=== PATIENT | female | born 1980 | race Caucasian/White ===

== ENCOUNTER 2016-08-06 10:58 | Outpatient (CLI) | payer BC, MEDICAID ==
[2016-08-06 11:35] LABS: AMORPHOUS SEDIMENT,URINE TRACE /HPF; APPEARANCE,URINE CLOUDY; BILIRUBIN,URINE NEGATIVE (NEGATIVE); GLUCOSE, URINE NEGATIVE (NEGATIVE); KETONES,URINE TRACE mg/dL (NEGATIVE); LEUKOCYTE ESTERASE,URINE NEGATIVE (NEGATIVE); NITRITE,URINE NEGATIVE (NEGATIVE); PROTEIN,URINE NEGATIVE (NEGATIVE); URINE SPECIFIC GRAVITY 1.011
[2016-08-06 11:45] LABS: URINE BARBITURATES SCREEN NEGATIVE; URINE METHADONE SCREEN NEGATIVE; URINE OPIATES LOW NEGATIVE; URINE PHENCYCLIDINE SCREEN NEGATIVE
[2016-08-06] MEDS ORDERED: ONDANSETRON 4 MG TAB.RAPDIS ONE (11:50)
[2016-08-06] MEDS ORDERED: ONDANSETRON ODT 4 MG TAB (6 TAB/DSPK) PO PRN (11:51)
--- NOTE | 2016-08-06 12:01 | L&D Flow Sheet ---
LD Flowsheet Datetime Report Generated by CPN: 08/06/2016 12:00 Datetime: 08/06/2016 11:50 Vital Signs NBP Sys/Adwoa/Mean (mmHg): 125 (QS system process) : 80 (QS system process) : 98 (QS system process) Pulse: 88 (QS system process) Datetime: 08/06/2016 11:49 Communication Communication: Provider Orders Received (Esther Navneet, RN) Communication Comments: orders received for zofran 8mg ODT now (Esther Navneet, RN) Datetime: 08/06/2016 11:35 Vital Signs NBP Sys/Adwoa/Mean (mmHg): 116 (QS system process) : 61 (QS system process) : 83 (QS system process) Pulse: 91 (QS system process) Datetime: 08/06/2016 11:33 Pain Pain Scale: 0 (Esther Navneet, RN) Pain Presence: None/Denies (Esther Navneet, RN) Pain Type: N/A (Esther Navneet, RN) Vaginal Exam Vaginal Bleeding: None (Esther Toth, RN) Maternal Assessment Level of Consciousness: Fully Conscious (Esther Toth RN) DTR's/Clonus: DTRs 2+; No Clonus (Esther Toth RN) Headache: Denies (Esther Toth RN)
[2016-08-06] MEDS ORDERED: RINGERS SOLUTION,LACTATED 1,000 ML IV ONE (12:24)
[2016-08-06] MEDS ORDERED: PANTOPRAZOLE SODIUM 40 MG VIAL IV ONE (12:25)
[2016-08-06] MEDS ORDERED: PROMETHAZINE HCL INJ 25 MG/1 ML VIAL IV ONE (12:25)
[2016-08-06] MEDS ORDERED: LANSOPRAZOLE 30 MG TAB.RAP.DR ONE (12:31)
[2016-08-06] MEDS ORDERED: PROMETHAZINE HCL INJ 25 MG/1 ML VIAL ONE (12:31)
--- NOTE | 2016-08-06 13:11 | Non Stress Test Report ---
Non Stress Test Datetime Report Generated by CPN: 08/06/2016 13:11 INDICATION Indication for Study: Other Indication for Study (NST) Other: Labor check MONITORING Monitor Explained: Monitor Explained; Test Explained; Patient Verbalized Understanding Time on Monitor: 08/06/2016 11:21 Time off Monitor: 08/06/2016 12:32 NST Duration: 71 NST INTERVENTIONS NST Interventions: PO Hydration; Reposition Patient Physician Notified NST: Dr. Neilsen BABY A: [id number] BABY A Movement : Present Contraction Frequency : irregular FHR Baseline : 145 Accelerations : 15X15 Decelerations : None Variability : Moderate 6-25bpm NST Review: Meets Criteria for Reactive NST NST Review and Verified By : RACHEAL DominiqueT Results: Reactive NST REPORT Report Trigger: Send Report
== END 2016-08-06 14:53 | disposition home or self-care (01) ==
LOC: LC 10:58
PROVIDERS: ATTEND Specialist
PROC: 4A1HXCZ Monitoring of Products of Conception, Cardiac Rate, External Approach (ICD-10-PCS; principal; 2016-08-06)
DX: O26.893 Other specified pregnancy related conditions, third trimester (principal); R11.2 Nausea with vomiting, unspecified; Z3A.36 36 weeks gestation of pregnancy
CPT/HCPCS: 59025; 81001; 80307; S0119; S0164; J2550

== ENCOUNTER 2016-08-08 19:05 | Inpatient (IN) | payer BC, MEDICAID ==
[2016-08-08 19:45] LABS: APPEARANCE,URINE CLEAR; BILIRUBIN,URINE NEGATIVE (NEGATIVE); GLUCOSE, URINE NEGATIVE (NEGATIVE); KETONES,URINE NEGATIVE (NEGATIVE); LEUKOCYTE ESTERASE,URINE NEGATIVE (NEGATIVE); NITRITE,URINE NEGATIVE (NEGATIVE); PROTEIN,URINE NEGATIVE (NEGATIVE); URINE SPECIFIC GRAVITY 1.012
[2016-08-08] MEDS ORDERED: ACETAMINOPHEN 325 MG TABLET ONE (19:45)
[2016-08-08 19:59] LABS: URINE BARBITURATES SCREEN NEGATIVE; URINE METHADONE SCREEN NEGATIVE; URINE OPIATES LOW NEGATIVE; URINE PHENCYCLIDINE SCREEN NEGATIVE
--- NOTE | 2016-08-08 20:00 | L&D Flow Sheet ---
LD Flowsheet Datetime Report Generated by CPN: 08/08/2016 20:00 Datetime: 08/08/2016 19:54 IV/Blood Work: Labs Drawn (Earlene Hankins, RN) Datetime: 08/08/2016 19:47 NBP Sys/Adwoa/Mean (mmHg): 131 (QS system process) : 72 (QS system process) : 93 (QS system process) Pulse: 93 (QS system process) Medication Comments: tylenol 650 mg PO (Earlene Hankins RN) LaborFlag: Antepartum (QS system process) Datetime: 08/08/2016 19:42 Communication: Provider Orders Received; Report Given to @ Dr Gomes (Earlene Hankins RN) Communication Comments: Report to Dr Gomes, on unit. Orders received for tylenol 650 mg PO, PI labs. No further orders at this time (Earlene Hankins RN) Datetime: 08/08/2016 19:32 NBP Sys/Adwoa/Mean (mmHg): 146 (QS system process) : 84 (QS system process) : 104 (QS system process) Pulse: 96 (QS system process) Respirations: 17 (Earlene Hankins RN) Temperature (F): 97.9 (Earlene Hankins RN) Temperature (C): 36.6 (QS system process) Temperature Route: Oral (Earlene Hankins RN) LaborFlag: Antepartum (QS system process)
[2016-08-08 20:33] LABS: ABSOLUTE EOSINOPHILS # (AUTO) 0.1 10^3/uL (0.0-0.6); ABSOLUTE LYMPHOCYTES (AUTO) 2.1 10^3/uL (0.5-4.7); ABSOLUTE MONOCYTES (AUTO) 0.5 10^3/uL (0.1-1.4); ABSOLUTE NEUT (AUTO) 6.1 10^3/uL (1.7-8.2); BASOPHILS % (AUTO) 0.3 % (0-2); EOSINOPHILS % (AUTO) 0.9 % (0-6); HEMATOCRIT 30.3 % (36.0-47.0); HEMOGLOBIN 10.1 g/dL (12.0-15.5); LYMPHOCYTES % (AUTO) 23.5 % (13-45); MEAN CORPUSCULAR HEMOGLOBIN 26.2 pg (27.0-33.4); MEAN CORPUSCULAR HGB CONC 33.4 g/dL (32.0-36.0); MEAN CORPUSCULAR VOLUME 78 fl (80-97); MONOCYTES % (AUTO) 5.9 % (3-13); RED BLOOD COUNT 3.87 10^6/uL (3.72-5.28); RED CELL DISTRIBUTION WIDTH 15.2 % (11.5-14.0); SEGMENTED NEUTROPHILS % (AUTO) 69.4 % (42-78); WHITE BLOOD COUNT 8.8 10^3/uL (4.0-10.5)
[2016-08-08 20:54] LABS: ALANINE AMINOTRANSFERASE 36 U/L (9-52); ALBUMIN 2.9 g/dL (3.5-5.0); ALKALINE PHOSPHATASE 187 U/L (38-126); ANION GAP 9 (5-19); ASPARTATE AMINO TRANSFERASE 36 U/L (14-36); BILIRUBIN,TOTAL 0.7 mg/dL (0.2-1.3); BLOOD UREA NITROGEN 7 mg/dL (7-20); CALCIUM 9.2 mg/dL (8.4-10.2); CARBON DIOXIDE 25 mmol/L (22-30); CHLORIDE 104 mmol/L (98-107); CREATININE RESULT 0.66 mg/dL (0.52-1.25); GLUCOSE 93 mg/dL (75-110); LDH 551 U/L (313-618); POTASSIUM 3.6 mmol/L (3.6-5.0); SODIUM 137.7 mmol/L (137-145); TOTAL PROTEIN 6.1 g/dL (6.3-8.2); URIC ACID 4.4 mg/dL (2.5-7.0)
[2016-08-08] MEDS ORDERED: RINGERS SOLUTION,LACTATED 300 ML IV ONE (21:53)
[2016-08-08] MEDS ORDERED: OXYTOCIN/NORMAL SALINE 1,000 ML IV PRN (21:53)
[2016-08-08] MEDS ORDERED: RINGERS SOLUTION,LACTATED 1,000 ML IV PRN (21:53)
[2016-08-08] MEDS ORDERED: PENICILLIN G POTASSIUM 5,000,000 UNIT in DEXTROSE 5%-WATER 100 ML IV ONE (21:56)
[2016-08-08] MEDS ORDERED: ACETAMINOPHEN 325 MG TABLET PO PRN (21:57)
[2016-08-08] MEDS ORDERED: MAG HYDROX/AL HYDROX/SIMETH SUSP 30 ML UDCUP PO PRN (21:57)
[2016-08-08] MEDS ORDERED: ZOLPIDEM TARTRATE 5 MG TABLET PO SCH (22:00)
--- NOTE | 2016-08-08 22:01 | L&D Flow Sheet ---
LD Flowsheet Datetime Report Generated by CPN: 08/08/2016 22:00 Datetime: 08/08/2016 21:57 NBP Sys/Adwoa/Mean (mmHg): 132 (QS system process) : 89 (QS system process) : 105 (QS system process) Pulse: 83 (QS system process) LaborFlag: Antepartum (QS system process) Datetime: 08/08/2016 21:52 Patient Care Comments: IV started; 18 G R forearm site WNL; LR infusing per order (Carli Vitrano, RN) Datetime: 08/08/2016 21:21 Additional Nursing Comments: Pt transfered from PACU room K to room 4 (Earlene Marroquinsel, RN) Datetime: 08/08/2016 21:15 Communication Comments: Admission orders from Dr Gomes (Earlene Cr, RN) Datetime: 08/08/2016 20:37 NBP Sys/Adwoa/Mean (mmHg): 133 (QS system process) : 62 (QS system process) : 89 (QS system process) Pulse: 94 (QS system process) LaborFlag: Antepartum (QS system process) Datetime: 08/08/2016 20:27 NBP Sys/Adwoa/Mean (mmHg): 110 (QS system process) : 59 (QS system process) : 78 (QS system process) Pulse: 93 (QS system process) LaborFlag: Antepartum (QS system process) Datetime: 08/08/2016 20:20 NBP Sys/Adwoa/Mean (mmHg): 122 (QS system process) : 59 (QS system process) : 81 (QS system process) Pulse: 87 (QS system process) Monitor Interventions for FHR: Ultrasound Adjusted (Earlene Hankins RN) Patient Care Comments: BP retaken (Earlene Hankins RN) Communication: RN at Bedside (Earlene Hankins RN) LaborFlag: Antepartum (QS system process) Datetime: 08/08/2016 20:18 Patient Position/Activity: Right Lateral (Earlene Hankins RN) Datetime: 08/08/2016 20:17 NBP Sys/Adwoa/Mean (mmHg): 159 (QS system process) : 68 (QS system process) : 97 (QS system process) Pulse: 87 (QS system process) LaborFlag: Antepartum (QS system process) Datetime: 08/08/2016 20:12 Monitor Interventions for FHR: Ultrasound Adjusted (Earlene Hankins RN) Pain Scale: 4 (Earlene Hankins RN) Pain Assessment Comments: Pt reports improvement of pain. Pt resting comfortably, looking at phone (Earlene Hankins RN) Communication: RN at Bedside (Earlene Hankins RN) LaborFlag: Antepartum (QS system process) Datetime: 08/08/2016 20:07 NBP Sys/Adwoa/Mean (mmHg): 145 (QS system process) : 65 (QS system process) : 93 (QS system process) Pulse: 96 (QS system process) LaborFlag: Antepartum (QS system process)
[2016-08-08] MEDS ORDERED: PENICILLIN G-K 5 MILLION UNIT VIAL IV PRN ×2 (22:10→22:12)
[2016-08-08] MEDS ORDERED: DINOPROSTONE 10 MG VAGINAL INSERT.SR ONE (22:26)
[2016-08-08] MEDS: DINOPROSTONE 10 MG VAGINAL INSERT.SR PV PRN ×2 (22:56→23:37)
[2016-08-08] MEDS ORDERED: MAG HYDROX/AL HYDROX/SIMETH SUSP 30 ML UDCUP ONE (23:09)
[2016-08-09] MEDS ORDERED: ZOLPIDEM TARTRATE 5 MG TABLET ONE (01:28)
[2016-08-09] MEDS ORDERED: PENICILLIN G POTASSIUM 2,500,000 UNIT in DEXTROSE 5%-WATER 50 ML IV SCH (01:56)
[2016-08-09] MEDS ORDERED: MAG HYDROX/AL HYDROX/SIMETH SUSP 30 ML UDCUP ONE ×4 (06:41→21:18)
[2016-08-09] MEDS ORDERED: OXYTOCIN/NORMAL SALINE 20 UNIT/1,000 ML RTUINJ ONE (06:56)
[2016-08-09] MEDS ORDERED: PENICILLIN G-K 5 MILLION UNIT VIAL ONE ×3 (07:39→15:32)
[2016-08-09] MEDS: PENICILLIN G-K 5 MILLION UNIT VIAL IV SCH ×3 (07:48→15:40)
--- NOTE | 2016-08-09 08:01 | L&D Flow Sheet ---
LD Flowsheet Datetime Report Generated by CPN: 08/09/2016 08:00 Datetime: 08/09/2016 07:34 Temperature (F): 97.6 (Lenin Liu RN) Temperature (C): 36.4 (QS system process) Bedside Blood Glucose: 88 (QS system process) LaborFlag: Antepartum (QS system process) Datetime: 08/09/2016 07:27 Patient Care Comments: Cooks Catheter placed by Dr Gomes (Lenin Noe, RN) Datetime: 08/09/2016 07:20 Communication: Provider at Bedside (Earlene Hankins RN) Communication Comments: Dr Gomes at bedside (Earlene Hankins, RN) Communication Comments: Report to S Noe RN, care relinquished (Earlene Cr, RN) Datetime: 08/09/2016 07:12 NBP Sys/Adwoa/Mean (mmHg): 139 (QS system process) : 91 (QS system process) : 109 (QS system process) Pulse: 107 (QS system process) LaborFlag: Antepartum (QS system process) Datetime: 08/09/2016 07:11 NBP Sys/Adwoa/Mean (mmHg): 137 (QS system process) : 100 (QS system process) : 115 (QS system process) Pulse: 98 (QS system process) LaborFlag: Antepartum (QS system process) Datetime: 08/09/2016 07:09 Patient Care Comments: maternal HR auscultated (Keya Campostibnguyen RN) Communication: RN at Bedside (Keya Andrestibnguyen, RN) Datetime: 08/09/2016 07:00 Monitor Mode: External (Earlene Hankins RN) Frequency (min): 2-3 (Earlene Hankins RN) Quality: Mild (Earlene Cr, RN) Duration (sec): 60-120 (Earlene Hankins RN) Resting Tone (Palpate): Relaxed (Earlene Hankins RN) Monitor Mode: External US (Earlene Cr, RN) FHR Baseline Rate : 140 (Earlene Cr, RN) Variability: Marked >25 bpm (Earlene Cr, RN) Accelerations: None (Earlene Cr, RN) Decelerations: None (Earlene Cr, RN) Datetime: 08/09/2016 06:48 NBP Sys/Adwoa/Mean (mmHg): 137 (QS system process) : 87 (QS system process) : 104 (QS system process) Pulse: 90 (QS system process) LaborFlag: Antepartum (QS system process) Datetime: 08/09/2016 06:47 Pain Scale: "slight" (Earlene Hankins RN) Pain Presence: Constant (Earlene Hankins RN) Pain Type: Ache (Earlene Hankins RN) Pain Location: Head (Earlene Hankins RN) Pain Assessment Comments: Pt states headache is slight, "nothing like before" (Earlene Hankins RN) Dilatation (cm): 0.5 (Earlene Hankins RN) Effacement (%): 0 (Earlene Hankins RN) Station: -2 (Earlene Hankins RN) Exam by: Dwaine Hankins RN (Earlene Hankins RN) Vaginal Bleeding: None (Earlene Hankins RN) Cervix, Consistency: Moderate (Earlene Hankins RN) Cervix, Position: Anterior (Earlene Hankins RN) Dilatation (cm): Closed (Earlene Hankins RN) Effacement: 0-30_ effaced (Earlene Hankins RN) Station: minus 2 (Earlene Hankins RN) Consistency: Medium (Earlene Hankins RN) Position: Anterior (Earlene Hankins RN) Total Lugo's Score: 4 (QS system process) : 0-4 = Unfavorable cervix (QS system process) LaborFlag: Antepartum (QS system process) Datetime: 08/09/2016 06:40 Monitor Interventions for FHR: Ultrasound Adjusted (Earlene Hankins RN) Communication: RN at Bedside (Earlene Hankins RN) Datetime: 08/09/2016 06:33 I/O Interventions: Up to BR (Earlene Cr, RN) Datetime: 08/09/2016 06:30 Monitor Mode: External; Palpation (Ealrene Cr, RN) Frequency (min): Occasional (Earlene Cr, RN) Quality: Mild (Earlene Cr, RN) Duration (sec): 70-80 (Earlene Cr, RN) Resting Tone (Palpate): Relaxed (Earlene Cr, RN) Monitor Mode: External US (Earlene Cr, RN) Comments: Unable to assess FHR d/t broken strip (Earlene Cr, RN) Datetime: 08/09/2016 06:26 Monitor Interventions for FHR: Ultrasound Adjusted (Earlene Cr, RN) Communication: RN at Bedside (Earlene Cr, RN) Datetime: 08/09/2016 06:12 Monitor Interventions for FHR: Ultrasound Adjusted (Earlene Cr, RN) Communication: RN at Bedside (Earlene Cr, RN) Datetime: 08/09/2016 06:10 Patient Care Comments: Pt called RN to bedside d/t cervidil coming out in toilet. (Earlene Cr, RN) Communication: RN at Bedside (Earlene Cr, RN) Datetime: 08/09/2016 06:06 I/O Interventions: Up to BR (Earlene Cr, RN) Datetime: 08/09/2016 06:00 Monitor Mode: External (Earlene Cr, RN) Frequency (min): None (Earleen Cr, RN) Resting Tone (Palpate): Relaxed (Earlene Cr, RN) Monitor Mode: External US (Earlene Cr, RN) Comments: Unable to assess FHR, RN at bedside adjusting EFMs (Earlene Cr, RN) Datetime: 08/09/2016 05:56 Monitor Interventions for FHR: Ultrasound Adjusted (Earlene Cr, RN) Communication: RN at Bedside (Earlene Cr, RN) Datetime: 08/09/2016 05:45 I/O Interventions: Up to BR (Earlene Cr, RN) Datetime: 08/09/2016 05:43 NBP Sys/Adwoa/Mean (mmHg): 146 (QS system process) : 73 (QS system process) : 103 (QS system process) Pulse: 87 (QS system process) LaborFlag: Antepartum (QS system process) Datetime: 08/09/2016 05:41 Monitor Interventions for FHR: Ultrasound Adjusted (Earlene Cr, RN) Communication: RN at Bedside (Earlene Cr, RN) Datetime: 08/09/2016 05:37 Patient Position/Activity: Left Tilt (Earlene Cr, RN) Datetime: 08/09/2016 05:30 Monitor Mode: External (Earlene Cr, RN) Frequency (min): none (Earlene Cr, RN) Resting Tone (Palpate): Relaxed (Earlene Cr, RN) Monitor Mode: External US (Earlene Cr, RN) FHR Baseline Rate : 135 (Earlene Cr, RN) Variability: Moderate 6-25 bpm (Earlene Cr, RN) Accelerations: 10X10 (Earlene Cr, RN) Decelerations: None (Earlene Cr, RN) Datetime: 08/09/2016 05:00 Monitor Mode: External (Earlene Cr, RN) Frequency (min): None (Earlene Cr, RN) Resting Tone (Palpate): Relaxed (Earlene Cr, RN) Monitor Mode: External US (Earlene Cr, RN) FHR Baseline Rate : 125 (Earlene Cr, RN) Variability: Moderate 6-25 bpm (Earlene Cr, RN) Accelerations: None (Earlene Cr, RN) Decelerations: None (Earlene Cr, RN) Datetime: 08/09/2016 04:31 Monitor Interventions for FHR: Ultrasound Adjusted (Earlene Cr, RN) Communication: RN at Bedside (Earlene Cr, RN) Datetime: 08/09/2016 04:30 Monitor Mode: External (Earlene Cr, RN) Frequency (min): Irritability (Earlene Cr, RN) Quality: Mild (Earlene Cr, RN) Resting Tone (Palpate): Relaxed (Earlene Cr, RN) Monitor Mode: External US (Earlene Cr, RN) FHR Baseline Rate : 135 (Earlene Cr, RN) Variability: Moderate 6-25 bpm (Earlene Hankins, RN) Accelerations: None (Earlene Redmondl, RN) Decelerations: None (Earlene Cr, RN) Datetime: 08/09/2016 04:06 I/O Interventions: Up to BR (Earlene Redmondl, RN) Datetime: 08/09/2016 03:31 Antibiotics: Start Antibiotics; Penicillin IV (Units) @ 5 million units (Earlene Hankins RN) Medication Comments: Per orders from Dr Gomes (Earlene Hankins RN) IV/Blood Work: New IV Bag Hung; IV Bag Number @ 2 (Earlene Hankins RN) Datetime: 08/09/2016 03:30 Monitor Mode: External (Earlene Cr, RN) Frequency (min): 4-6 (Earlene Cr, RN) Quality: Mild (Earlene Cr, RN) Duration (sec): 60-90 (Earlene Cr, RN) Resting Tone (Palpate): Relaxed (Earlene Cr, RN) Monitor Mode: External US (Earlnee Cr, RN) FHR Baseline Rate : 130 (Earlene Cr, RN) Variability: Moderate 6-25 bpm (Earlene Cr, RN) Accelerations: 10X10 (Earlene Cr, RN) Decelerations: None (Earlene Cr, RN) Datetime: 08/09/2016 03:21 Monitor Interventions for FHR: Ultrasound Adjusted (Earlene Cr, RN) Communication: RN at Bedside (Earlene Cr, RN) Datetime: 08/09/2016 03:00 Monitor Mode: External (Earlene Cr, RN) Frequency (min): 4-7 (Earlene Cr, RN) Quality: Mild (Earlene Cr, RN) Duration (sec): 50-70 (Earlene Cr, RN) Resting Tone (Palpate): Relaxed (Earlene Cr, RN) Monitor Mode: External US (Earlene Cr, RN) FHR Baseline Rate : 130 (Earlene Cr, RN) Variability: Moderate 6-25 bpm (Earlene Cr, RN) Accelerations: 15X15 (Earlene Cr, RN) Decelerations: None (Earlene Cr, RN) Datetime: 08/09/2016 02:30 Monitor Mode: External (Earlene Cr, RN) Frequency (min): irritability (Earlene Cr, RN) Quality: Mild (Earlene Cr, RN) Resting Tone (Palpate): Relaxed (Earlene Cr, RN) Monitor Mode: External US (Earlene Cr, RN) FHR Baseline Rate : 130 (Earlene Cr, RN) Variability: Moderate 6-25 bpm (Earlene Cr, RN) Accelerations: 15X15 (Earlene Cr, RN) Decelerations: None (Earlene Cr, RN) Datetime: 08/09/2016 02:13 Monitor Interventions for FHR: Ultrasound Adjusted (Keya Lattibeaudeir, RN) Comments: almost constant maternal movement noted (Keya Lattibeaudeir, RN) Datetime: 08/09/2016 02:10 Monitor Interventions for FHR: Ultrasound Adjusted (Keya Lattibeaudeir, RN) Datetime: 08/09/2016 02:00 Monitor Mode: External (Earlene Cr, RN) Frequency (min): Irritability (Earlene Cr, RN) Quality: Mild (Earlene Cr, RN) Resting Tone (Palpate): Relaxed (Earlene Cr, RN) Monitor Mode: External US (Earlene Cr, RN) Monitor Interventions for FHR: Ultrasound Adjusted (Earlene Cr, RN) FHR Baseline Rate : 125 (Earlene Cr, RN) Variability: Moderate 6-25 bpm (Earlene Cr, RN) Accelerations: 15X15 (Earlene Cr, RN) Decelerations: None (Earlene Cr, RN) Communication: RN at Bedside (Earlene Marroquinsel, RN) Datetime: 08/09/2016 01:31 Medication Comments: ambien 10 mg PO per [facility] standing orders (Earlene Marroquinsel, RN) Datetime: 08/09/2016 01:30 Monitor Mode: External (Earlene Cr, RN) Frequency (min): Irritability (Earlene Cr, RN) Quality: Mild (Earlene Cr, RN) Resting Tone (Palpate): Relaxed (Earlene Cr, RN) Monitor Mode: External US (Earlene Cr, RN) FHR Baseline Rate : 125 (Earlene Cr, RN) Variability: Moderate 6-25 bpm (Earlene Cr, RN) Accelerations: 15X15 (Earlene Cr, RN) Decelerations: None (Earlene Cr, RN) Datetime: 08/09/2016 01:10 I/O Interventions: Up to BR (Earlene Cr, RN) Datetime: 08/09/2016 01:00 Monitor Mode: External; Palpation (Earlene Cr, RN) Resting Tone (Palpate): Relaxed (Earlene Cr, RN) Contraction Comments: Irritability (Earlene Cr, RN) Monitor Mode: External US (Earlene Cr, RN) Comments: Unable to assess, broken strip (Earlene Cr, RN) Datetime: 08/09/2016 00:45 Monitor Interventions for FHR: Ultrasound Adjusted (Earlene Cr, RN) Comments: maternal HR auscultated (Earlene Cr, RN) Communication: RN at Bedside (Earlene Cr, RN) Datetime: 08/09/2016 00:40 NBP Sys/Adwoa/Mean (mmHg): 106 (QS system process) : 55 (QS system process) : 75 (QS system process) Pulse: 89 (QS system process) LaborFlag: Antepartum (QS system process) Datetime: 08/09/2016 00:30 Monitor Mode: External (Earlene Cr, RN) Frequency (min): Irritability (Earlene Cr, RN) Quality: Mild (Earlene Cr, RN) Resting Tone (Palpate): Relaxed (Earlene Cr, RN) Monitor Mode: External US (Earlene Cr, RN) FHR Baseline Rate : 135 (Earlene Cr, RN) Variability: Moderate 6-25 bpm (Earlene Cr, RN) Accelerations: 15X15 (Earlene Cr, RN) Decelerations: None (Earlene Cr, RN) Datetime: 08/09/2016 00:06 I/O Interventions: Up to BR (Earlene Cr, RN) Datetime: 08/09/2016 00:00 Monitor Mode: External (Earlene Cr, RN) Frequency (min): Irritability (Earlene Cr, RN) Quality: Mild (Earlene Cr, RN) Resting Tone (Palpate): Relaxed (Earlene Cr, RN) Monitor Mode: External US (Earlene Cr, RN) FHR Baseline Rate : 125 (Earlene Cr, RN) Variability: Moderate 6-25 bpm (Earlene Cr, RN) Accelerations: None (Earlene Cr, RN) Decelerations: None (Earlene Cr, RN) Datetime: 08/08/2016 23:54 Monitor Interventions for FHR: Ultrasound Adjusted (Keya Lattibeaudeir, RN) Comments: Vigorous and maternal movement noted (Keya Lattibeaudeir, RN) Datetime: 08/08/2016 23:39 NBP Sys/Adwoa/Mean (mmHg): 120 (QS system process) : 84 (QS system process) : 99 (QS system process) Pulse: 91 (QS system process) LaborFlag: Antepartum (QS system process) Datetime: 08/08/2016 23:30 Monitor Mode: External (Earlene Cr, RN) Frequency (min): Occasional (Earlene Cr, RN) Quality: Mild (Earlene Cr, RN) Duration (sec): 60-120 (Earlene Cr, RN) Resting Tone (Palpate): Relaxed (Earlene Cr, RN) Monitor Mode: External US (Earlene Cr, RN) FHR Baseline Rate : 135 (Earlene Cr, RN) Comments: Unable to completely assess FHR, broken strip (Earlene Cr, RN) Datetime: 08/08/2016 23:24 Monitor Interventions for FHR: Ultrasound Adjusted (Earlene Cr, RN) Communication: RN at Bedside (Earlene Cr, RN) Datetime: 08/08/2016 23:18 Monitor Interventions for FHR: Ultrasound Adjusted (Earlene Cr, RN) Communication: RN at Bedside (Earlene Rc, RN) Datetime: 08/08/2016 23:17 Medication Comments: maalox 30 mg PO for heartburn (Earlene Cr, RN) Patient Care Comments: pt vomiting, reportedly d/t heartburn (Earlene Cr, RN) Datetime: 08/08/2016 23:00 Monitor Mode: External (Earlene Cr, RN) Frequency (min): Irritability (Earlene Cr, RN) Quality: Mild (Earlene Cr, RN) Resting Tone (Palpate): Relaxed (Earlene Cr, RN) Comments: Unable to accurately assess FHR, broken strip (Earlene Cr, RN) Datetime: 08/08/2016 22:56 Dilatation (cm): 0.5 (Earlene Hankins RN) Effacement (%): 0 (Earlene Hankins, RN) Station: -1 (Earlene Hankins RN) Exam by: Dwaine Hankins RN (Earlene Hankins RN) Vaginal Bleeding: None (Earlene Hankins RN) Cervix, Consistency: Moderate (Earlene Hankins RN) Cervix, Position: Anterior (Earlene Hankins RN) Cervical Ripening Agents: Cervidil (Earlene Hankins RN) Datetime: 08/08/2016 22:51 Monitor Interventions for FHR: Ultrasound Adjusted (Earlene Hankins, RN) Comments: RN continuously holding u/s, attempting to locate FHR (Earlene Hankins RN) Communication: RN at Bedside (Earlene Hankins RN) Datetime: 08/08/2016 22:47 Monitor Interventions for FHR: Ultrasound Adjusted (Earlene Marroquinsel, RN) IV/Blood Work: Labs Drawn (Earlene Hankins, RN) Patient Care Comments: second laborer cook house at bedside for lab draw (Earlene Marroquinsel, RN) Communication: RN at Bedside (Earlene Cr, RN) Datetime: 08/08/2016 22:39 Monitor Interventions for FHR: Ultrasound Adjusted (Earlene Cr, RN) Communication: RN at Bedside (Earlene Cr, RN) Datetime: 08/08/2016 22:37 Comments: maternal HR auscultated (Earlene Marroquinsel, RN) Communication: RN at Bedside (Earlene Cr, RN) Datetime: 08/08/2016 22:35 IV/Blood Work: Labs Drawn (Earlene Cr, RN) Datetime: 08/08/2016 22:30 Monitor Mode: External; Palpation (Earlene Cr, RN) Frequency (min): None (Earlene Cr, RN) Resting Tone (Palpate): Relaxed (Earlene Cr, RN) Monitor Mode: External US (Earlene Cr, RN) FHR Baseline Rate : 135 (Earlene Cr, RN) Variability: Moderate 6-25 bpm (Earlene Cr, RN) Accelerations: 15X15 (Earlene Cr, RN) Decelerations: None (Earlene Cr, RN) Datetime: 08/08/2016 22:27 I/O Interventions: Up to BR (Earlene Cr, RN) Datetime: 08/08/2016 22:14 Monitor Interventions for FHR: Ultrasound Adjusted (Earlene Cr, RN) Comments: Pt sitting up, maternal HR auscultated (Earlene Cr, RN) Communication: RN at Bedside (Earlene Cr, RN) Datetime: 08/08/2016 22:13 NBP Sys/Adwoa/Mean (mmHg): 142 (QS system process) : 87 (QS system process) : 109 (QS system process) Pulse: 91 (QS system process) LaborFlag: Antepartum (QS system process) Datetime: 08/08/2016 22:05 Procedures: Consents Signed (Earlene Hankins, RN) Datetime: 08/08/2016 22:00 IV/Blood Work: IV Started; IV Bolus Started; IV Bolus Given ml @ 300 (Earlene Hankins RN)
[2016-08-09] MEDS ORDERED: ONDANSETRON HCL INJ/PF 4 MG/2 ML SDV ONE ×2 (08:37→13:04)
[2016-08-09] MEDS ORDERED: ONDANSETRON HCL INJ/PF 4 MG/2 ML SDV IV ONE ×2 (09:30→13:30)
--- NOTE | 2016-08-09 10:00 | L&D Flow Sheet ---
LD Flowsheet Datetime Report Generated by CPN: 08/09/2016 10:00 Datetime: 08/09/2016 09:54 NBP Sys/Adwoa/Mean (mmHg): 144 (QS system process) : 87 (QS system process) : 107 (QS system process) Pulse: 91 (QS system process) LaborFlag: Antepartum (QS system process) Datetime: 08/09/2016 09:51 Temperature (F): 97.9 (Lenin Liu RN) Temperature (C): 36.6 (QS system process) Monitor Interventions for UA: [place] Adjusted (Lenin Liu RN) LaborFlag: Antepartum (QS system process) Datetime: 08/09/2016 09:03 Comments: Monitors d/c for shower. (Lenin Liu RN) Comments: picking up maternal hr (Lenin Liu RN) IV/Blood Work: IV Saline Locked (Lenin Liu RN) Datetime: 08/09/2016 09:00 Respirations: 16 (Lenin Liu RN) Monitor Mode: External; Palpation (Lenin Liu RN) Frequency (min): 2-4 (Lenin Liu RN) Quality: Mild/Moderate (Lenin Liu RN) Duration (sec): 60-80 (Lenin Liu RN) Duration Criteria: Less than Two 120 Second Contractions (Lenin Liu RN) Pattern: Normal: <= 5 Contractions in 10 Minutes (Lenin Liu RN) Resting Tone (Palpate): Relaxed (Lenin Liu RN) Monitor Mode: External US (Lenin Liu RN) FHR Baseline Rate : 140 (Lenin Liu RN) Variability: Moderate 6-25 bpm (Lenin Liu RN) Accelerations: 15X15 (Lenin Liu RN) Decelerations: None (Lenin Liu RN) Level of Consciousness: Fully Conscious (Lenin Liu RN) Headache: Denies (Lenin Liu RN) Breath Sounds, Left: Clear and Equal (Lenin Liu RN) Breath Sounds, Right: Clear and Equal (Lenin Liu RN) RUQ Epigastric Pain: Denies (Lenin Liu RN) Communication: RN at Bedside; RN Reviewed Strip (Lenin Liu RN) LaborFlag: Antepartum (QS system process) Datetime: 08/09/2016 08:59 Patient Care Comments: Breakfast tray delivered. (Lenin Liu RN) Datetime: 08/09/2016 08:42 Antiemetics/Antacids: Zofran IV (mg) @ 4 (Lenin Moiseeet, RN) Medication Comments: over 2 min with saline flush (Lenin Cranet, RN) Datetime: 08/09/2016 08:37 Communication Comments: Dr Gomes notified of pt nausea/vomiting. Orders obtained for zofran 4mg IVP now. (Lenin Cranet, RN) Datetime: 08/09/2016 08:32 Monitor Interventions for UA: [place] Adjusted (Lenin Moiseeet, RN) Datetime: 08/09/2016 08:31 Monitor Interventions for FHR: Ultrasound Adjusted (Lenin Liu RN) Patient Position/Activity: Right Lateral (Lenin Liu RN) Datetime: 08/09/2016 08:30 Respirations: 18 (Lenin Liu RN) Monitor Mode: External; Palpation (Lenin Liu RN) Quality: Mild (Lenin Liu RN) Pattern: Normal: <= 5 Contractions in 10 Minutes (Lenin Liu RN) Resting Tone (Palpate): Relaxed (Lenin Liu RN) Contraction Comments: UTD; RN adjusting toco (Lenin Liu RN) Monitor Mode: External US (Lenin Liu RN) FHR Baseline Rate : 135 (Lenin Liu RN) Variability: Moderate 6-25 bpm (Lenin Liu RN) Accelerations: 15X15 (Lenin Liu RN) Decelerations: None (Lenin Liu RN) Comments: intermittently picking up maternal hr (Lenin Liu RN) Pain Scale: 2 (Lenin Liu RN) Pain Presence: Intermittent (Lenin Liu RN) Pain Type: Contraction (Lenin Liu RN) Pain Location: Abdomen (Lenin Liu RN) Pain Relief Measures: Comfort Measures (Lenin Liu RN) Pain Coping: Talking Through Contractions; Declines Medication or Epidural (Lenin Liu RN) Comfort Measures: Breathing/Relaxation (Lenin Liu RN) Communication: RN at Bedside; RN Reviewed Strip (Lenin Liu RN) LaborFlag: Antepartum (QS system process) Datetime: 08/09/2016 08:23 I/O Interventions: Up to BR (Lenin Liu RN) Datetime: 08/09/2016 08:18 Monitor Interventions for FHR: Ultrasound Adjusted (Lenin Liu RN) Comments: picking up maternal hr while pt sitting up to vomit (Lenin Liu RN) Nausea/Vomiting: Present (Lenin Liu RN) Communication: RN at Bedside (Lenin Liu RN) Datetime: 08/09/2016 08:12 NBP Sys/Adwoa/Mean (mmHg): 142 (QS system process) : 95 (QS system process) : 115 (QS system process) Pulse: 96 (QS system process) LaborFlag: Antepartum (QS system process) Datetime: 08/09/2016 08:00 Monitor Mode: External; Palpation (Lenin Liu RN) Frequency (min): UTD; difficult to slate picker in this position. (Lenin Liu RN) Quality: Mild (Lenin Liu RN) Resting Tone (Palpate): Relaxed (Lenin Liu RN) Monitor Mode: External US (Lenin Liu RN) FHR Baseline Rate : 140 (Lenin Liu RN) Variability: Moderate 6-25 bpm (Lenin Liu RN) Accelerations: 15X15 (Lenin Liu RN) Decelerations: None (Lenin Liu RN) Comments: Broken tracing, RN adjusting (Lenin Liu RN)
[2016-08-09] MEDS ORDERED: LIDOCAINE 1% INJ-PF (10 MG/ML) 30 ML SDV ONE (10:27)
[2016-08-09] MEDS ORDERED: MISOPROSTOL 0.2 MG TABLET ONE (10:27)
--- NOTE | 2016-08-09 12:01 | L&D Flow Sheet ---
LD Flowsheet Datetime Report Generated by CPN: 08/09/2016 12:00 Datetime: 08/09/2016 11:53 NBP Sys/Adwoa/Mean (mmHg): 144 (QS system process) : 70 (QS system process) : 100 (QS system process) Pulse: 88 (QS system process) LaborFlag: Antepartum (QS system process) Datetime: 08/09/2016 11:49 Monitor Interventions for UA: [place] Adjusted (Lenin Noe, RN) Datetime: 08/09/2016 11:48 Monitor Interventions for UA: [place] Adjusted (Lenin Liu, RACHEAL) Datetime: 08/09/2016 11:45 NBP Sys/Adwoa/Mean (mmHg): 144 (QS system process) : 78 (QS system process) : 101 (QS system process) Pulse: 92 (QS system process) Respirations: 18 (Lenin Liu RN) Temperature (F): 98.1 (Lenin Liu RN) Temperature (C): 36.7 (QS system process) Contraction Comments: UTD; pt off monitors (Lenin Liu RN) Comments: UTD; pt off monitors (Lenin Liu RN) Pitocin (milliunit): Pitocin Increased to (milliunits) @ 10 (Lenin Liu RN) Medication Comments: Per Dana Candelaria CNM order. (Lenin Liu RN) LaborFlag: Antepartum (QS system process) Datetime: 08/09/2016 11:42 Patient Position/Activity: Right Lateral; Peanut Ball (Lenin Noe, RN) Datetime: 08/09/2016 11:32 I/O Interventions: Up to BR (Lenin Noe, RN) Datetime: 08/09/2016 11:30 Monitor Mode: External; Palpation (Lenin Noe, RN) Frequency (min): 2-3.5 (Lenin Noe, RN) Quality: Mild/Moderate (Lenin Noe, RN) Duration (sec): 60-80 (Lenin Noe, RN) Duration Criteria: Less than Two 120 Second Contractions (Lenin Liu RN) Pattern: Normal: <= 5 Contractions in 10 Minutes (Lenin Liu RN) Resting Tone (Palpate): Relaxed (Lenin Liu RN) Monitor Mode: External US (Lenin Liu RN) FHR Baseline Rate : 145 (Lenin Liu RN) Variability: Moderate 6-25 bpm (Lenin Liu RN) Accelerations: 15X15 (Lenin Liu RN) Decelerations: None (Lenin Liu RN) Pitocin (milliunit): Pitocin Increased to (milliunits) @ 8 (Lenin Liu RN) Hygiene: Ann Marie Care; Underpad Changed; Peripad Changed; Linens Changed (Lenin Liu RN) Communication: RN at Bedside; RN Reviewed Strip (Lenin Liu RN) Datetime: 08/09/2016 11:26 Pain Scale: 3 (Lenin Liu RN) Pain Presence: Intermittent (Lenin Liu RN) Pain Type: Contraction (Lenin Liu RN) Pain Location: Abdomen (Lenin Liu RN) Pain Relief Measures: Comfort Measures (Lenin Liu RN) Pain Coping: Breathing Through Contractions; Declines Medication or Epidural (Lenin Liu RN) Comfort Measures: Breathing/Relaxation (Lenin Liu RN) LaborFlag: Antepartum (QS system process) Datetime: 08/09/2016 11:25 Communication Comments: A Emmel CNM notified of elevated BP (Lenin Noe, RN) Datetime: 08/09/2016 11:24 NBP Sys/Adwoa/Mean (mmHg): 161 (QS system process) : 86 (QS system process) : 114 (QS system process) Pulse: 90 (QS system process) LaborFlag: Antepartum (QS system process) Datetime: 08/09/2016 11:16 Monitor Interventions for UA: [place] Adjusted (Lenin Noe, RN) Datetime: 08/09/2016 11:15 Monitor Mode: External; Palpation (Lenin Liu RN) Frequency (min): 2-3 (Lenin Liu RN) Quality: Moderate (Lenin Liu RN) Duration (sec): 60-80 (Lenin Liu RN) Resting Tone (Palpate): Relaxed (Lenin Liu RN) Monitor Mode: External US (Lenin Liu RN) FHR Baseline Rate : 140 (Lenin Liu RN) Variability: Moderate 6-25 bpm (Lenin Liu RN) Accelerations: 15X15 (Lenin Liu, RACHEAL) Decelerations: None (Lenin Liu RN) Pitocin (milliunit): Pitocin Increased to (milliunits) @ 6 (Lenin Liu RN) Antibiotics: Penicillin IV (Units) @ (Annotations: [id number]) (Lenin Liu RN) Medication Comments: Per A Bari CNM order (Lenin Liu RN) Communication: RN at Bedside; RN Reviewed Strip (Lenin Liu RN) Datetime: 08/09/2016 11:13 Communication Comments: A Emmel CNM at bedside to assess pt; A Emmel CNM states to increase pitocin q15min. (Lenin Noe, RN) Datetime: 08/09/2016 11:11 Dilatation (cm): 6.0 (Lenin Noe, RN) Effacement (%): 50 (Lenin Noe, RN) Station: -2 (Lenin Noe, RN) Exam by: A Emmel CNM (Lenin Noe, RN) Datetime: 08/09/2016 11:09 NBP Sys/Adwoa/Mean (mmHg): 133 (QS system process) : 84 (QS system process) : 104 (QS system process) Pulse: 90 (QS system process) LaborFlag: Antepartum (QS system process) Datetime: 08/09/2016 11:08 I/O Interventions: Popsicle (Lenin Noe, RN) Datetime: 08/09/2016 11:05 Monitor Interventions for UA: [place] Adjusted (Lenin Noe, RN) Datetime: 08/09/2016 11:02 Patient Position/Activity: Tailors (Lenin Noe, RN) Hygiene: Underpad Changed (Lenin Noe, RN) Datetime: 08/09/2016 11:00 Respirations: 20 (Lenin Liu RN) Bedside Blood Glucose: 80 (QS system process) Monitor Mode: External; Palpation (Lenin Liu RN) Quality: Moderate (Lenin Liu RN) Resting Tone (Palpate): Relaxed (Lenin Liu RN) Contraction Comments: UTD; RN adjusting toco; provider aware of difficulty to obtain toco. (Lenin Liu RN) Monitor Mode: External US (Lenin Liu RN) FHR Baseline Rate : 135 (Lenin Liu RN) Variability: Moderate 6-25 bpm (Lenin Liu RN) Accelerations: 10X10 (Lenin Liu RN) Decelerations: None (Lenin Liu RN) Level of Consciousness: Fully Conscious (Lenin Liu RN) Headache: Denies (Lenin Liu RN) Nausea/Vomiting: Hx of Nausea/Vomiting (Lenin Liu RN) RUQ Epigastric Pain: Denies (Lenin Liu RN) Communication: RN at Bedside; RN Reviewed Strip (Lenin Liu RN) LaborFlag: Antepartum (QS system process) Datetime: 08/09/2016 10:53 NBP Sys/Adwoa/Mean (mmHg): 155 (QS system process) : 70 (QS system process) : 101 (QS system process) Pulse: 93 (QS system process) Monitor Interventions for UA: [place] Adjusted (Lenin Noe, RN) LaborFlag: Antepartum (QS system process) Datetime: 08/09/2016 10:50 Pitocin (milliunit): Pitocin Increased to (milliunits) @ 4 (Lenin Noe, RN) Datetime: 08/09/2016 10:49 Patient Position/Activity: Left Lateral; Peanut Ball (Lenin Noe, RN) Hygiene: Underpad Changed (Lenin Noe, RN) Datetime: 08/09/2016 10:45 Monitor Mode: External; Palpation (Lenin Liu RN) Quality: Moderate (Lenin Liu RN) Resting Tone (Palpate): Relaxed (Lenin Liu RN) Contraction Comments: UTD; RN adjusting monitors (Lenin Liu RN) Monitor Mode: External US (Lenin Liu RN) FHR Baseline Rate : 140 (Lenin Liu RN) Variability: Moderate 6-25 bpm (Lenin Liu RN) Accelerations: 10X10 (Lenin Liu RN) Decelerations: None (Lenin Liu RN) Pitocin (milliunit): Pitocin Remains (milliunits) @ (Lenin Liu RN) Communication: RN at Bedside; RN Reviewed Strip (Lenin Liu RN) Datetime: 08/09/2016 10:42 Monitor Interventions for UA: [place] Adjusted (Lenin Liu RN) Datetime: 08/09/2016 10:38 NBP Sys/Adwoa/Mean (mmHg): 141 (QS system process) : 66 (QS system process) : 95 (QS system process) Pulse: 92 (QS system process) LaborFlag: Antepartum (QS system process) Datetime: 08/09/2016 10:37 Monitor Interventions for UA: [place] Adjusted (Lenin Myersfleet, RN) Patient Position/Activity: Right Lateral; Peanut Ball (Lenin Cranet, RN) Datetime: 08/09/2016 10:30 Monitor Mode: External; Palpation (Lenin Noe, RN) Frequency (min): 2-5 (Lenin Noe, RN) Quality: Moderate (Lenin Noe, RN) Duration (sec): 60-90 (Lenin Noe, RN) Duration Criteria: Less than Two 120 Second Contractions (Lenin Liu RN) Pattern: Normal: <= 5 Contractions in 10 Minutes (Lenin Liu RN) Resting Tone (Palpate): Relaxed (Lenin Liu RN) Monitor Mode: External US (Lenin Liu RN) FHR Baseline Rate : 140 (Lenin Liu RN) Variability: Moderate 6-25 bpm (Lenin Liu RN) Accelerations: 10X10 (Lenin Liu RN) Decelerations: None (Lenin Liu RN) Comments: Broken tracing/ RN adjusting (Lenin Liu RN) Pain Scale: 3 (Lenin Liu RN) Pain Presence: Intermittent (Lenin Liu RN) Pain Type: Contraction (Lenin Liu RN) Pain Location: Abdomen (Lenin Liu RN) Pain Relief Measures: Comfort Measures (Lenin Liu RN) Pain Coping: Declines Medication or Epidural (Lenin Liu RN) Comfort Measures: Breathing/Relaxation (Lenin Liu RN) Provider Reviewed Strip: Yes (Lenin Liu RN) Communication: RN at Bedside; RN Reviewed Strip (Lenin Liu RN) LaborFlag: Antepartum (QS system process) Datetime: 08/09/2016 10:23 Comments: intermittently picking up maternal hr (Lenin Liu RN) Datetime: 08/09/2016 10:22 Hygiene: Ann Marie Care; Underpad Changed (Lenin Noe, RN) Datetime: 08/09/2016 10:18 Pitocin (milliunit): Pitocin Started (milliunits) @ 2 (Lenin Noe, RN) Communication Comments: A Emmel CNM reviewed strip; states to start pitocin infusion as ordered. (Lenin Noe, RN) Datetime: 08/09/2016 10:11 Hygiene: Underpad Changed (Lenin Noe, RN) Datetime: 08/09/2016 10:09 Patient Care Comments: Emisis x2 (Lenin Noe, RN) Datetime: 08/09/2016 10:08 Patient Position/Activity: Tailors (Lenin Moiseeet, RN) Datetime: 08/09/2016 10:07 Dilatation (cm): 6.0 (Lenin Liu, RN) Effacement (%): 50 (Lenin Liu, RN) Station: -2 (Lenin Liu, RN) Exam by: A Emmel CNM (Lenin Liu, RN) Membrane Status: Ruptured (Lenin Liu, RN) Membranes Rupture Method: Artificial (Lenin Liu, RN) Amniotic Fluid Color: Clear (Lenin Liu, RN) Amniotic Fluid Amount: Large (Lenin Liu, RN) Amniotic Fluid Odor: Normal (Lenin Liu, RN) Vaginal Bleeding: Normal Show (Lenin Liu, RN) Pool: Negative (Lenin Liu RN) Cervix, Consistency: Soft (Lenin Liu RN) Cervix, Position: Posterior (Lenin Liu, RN) Datetime: 08/09/2016 10:02 Vaginal Exam Comments: Cooks Catheter discontinued. (Lenin Liu, RACHEAL) Datetime: 08/09/2016 10:00 Monitor Mode: External; Palpation (Lenin Liu RN) Frequency (min): 3-4 (Lenin Liu RN) Quality: Mild/Moderate (Lenin Liu RN) Duration (sec): 70-90 (Lenin Liu RN) Duration Criteria: Less than Two 120 Second Contractions (Lenin Liu RN) Pattern: Normal: <= 5 Contractions in 10 Minutes (Lenin Liu RN) Resting Tone (Palpate): Relaxed (Lenin Liu RN) Monitor Mode: External US (Lenin Liu RN) FHR Baseline Rate : 135 (Lenin Liu RN) Variability: Moderate 6-25 bpm (Lenin Liu RN) Accelerations: 15X15 (Lenin Liu RN) Decelerations: None (Lenin Liu RN) Communication: RN at Bedside; RN Reviewed Strip (Lenin Liu RN)
--- NOTE | 2016-08-09 14:01 | L&D Flow Sheet ---
LD Flowsheet Datetime Report Generated by CPN: 08/09/2016 14:00 Datetime: 08/09/2016 13:51 I/O Interventions: Up to BR (Lenin Noe, RN) Datetime: 08/09/2016 13:49 Monitor Interventions for FHR: Ultrasound Adjusted (Lenin Noe, RN) Datetime: 08/09/2016 13:45 Monitor Mode: External; Palpation (Lenin Liu RN) Frequency (min): 2-4 (Lenin Liu RN) Quality: Moderate (Lenin Liu RN) Duration (sec): 60-80 (Lenin Liu RN) Resting Tone (Palpate): Relaxed (Lenin Liu RN) Monitor Mode: External US (Lenin Liu RN) FHR Baseline Rate : 140 (Lenin Liu RN) Variability: Moderate 6-25 bpm (Lenin Liu RN) Accelerations: 15X15 (Lenin Liu RN) Decelerations: None (Lenin Liu RN) Pitocin (milliunit): Pitocin Remains (milliunits) @ 20 (Lenin Liu RN) Communication: RN at Bedside; RN Reviewed Strip (Lenin Liu RN) Datetime: 08/09/2016 13:39 NBP Sys/Adwoa/Mean (mmHg): 140 (QS system process) : 82 (QS system process) : 105 (QS system process) Pulse: 90 (QS system process) LaborFlag: Antepartum (QS system process) Datetime: 08/09/2016 13:30 Monitor Mode: External; Palpation (Lenin Liu RN) Frequency (min): 2-2.5 (Lenin Liu RN) Quality: Moderate (Lenin Liu RN) Duration (sec): 60-80 (Lenin Liu RN) Resting Tone (Palpate): Relaxed (Lenin Liu RN) Monitor Mode: External US (Lenin Liu RN) FHR Baseline Rate : 140 (Lenin Liu RN) Variability: Moderate 6-25 bpm (Lenin Liu RN) Accelerations: 10X10 (Lenin Liu RN) Decelerations: None (Lenin Liu RN) Pain Scale: 4 (Lenin Liu RN) Pain Presence: Intermittent (Lenin Liu RN) Pain Type: Contraction (Lenin Liu RN) Pain Location: Abdomen (Lenin Liu RN) Pain Relief Measures: Comfort Measures (Lenin Liu RN) Pain Coping: Breathing Through Contractions; Declines Medication or Epidural (Lenin Liu RN) Pitocin (milliunit): Pitocin Remains (milliunits) @ 20 (Lenin Liu RN) Comfort Measures: Breathing/Relaxation; Family Support (Lenin Liu RN) Communication: RN at Bedside; RN Reviewed Strip (Lenin Liu RN) LaborFlag: Antepartum (QS system process) Datetime: 08/09/2016 13:20 Temperature (F): 98.3 (Lenin Noe, RN) Temperature (C): 36.8 (QS system process) Comments: maternal hr (Lenin Noe, RN) LaborFlag: Antepartum (QS system process) Datetime: 08/09/2016 13:15 Monitor Mode: External; Palpation (Lenin Noe, RN) Frequency (min): 1-5 (Lenin Noe, RN) Quality: Moderate (Lenin Noe, RN) Duration (sec): 60-80 (Lenin Noe, RN) Duration Criteria: Less than Two 120 Second Contractions (Lenin Noe, RN) Pattern: Normal: <= 5 Contractions in 10 Minutes (Lenin Noe, RN) Resting Tone (Palpate): Relaxed (Lenin Noe, RN) Monitor Mode: External US (Lenin Noe, RN) FHR Baseline Rate : 145 (Lenin Noe, RN) Variability: Moderate 6-25 bpm (Lenin Noe, RN) Accelerations: 10X10 (Lenin Noe, RN) Decelerations: None (Lenin Liu, RACHEAL) Pitocin (milliunit): Pitocin Remains (milliunits) @ 20 (Lenin Liu RN) Communication: RN at Bedside; RN Reviewed Strip (Lenin Liu RN) Datetime: 08/09/2016 13:14 I/O Interventions: Up to BR (Lenin Liu, RACHEAL) Datetime: 08/09/2016 13:10 Medication Comments: Zofran 8mg IVP over 2 min with saline flush; Maalox 30ml PO per A Emmel CNM order (Lenin Liu, RN) Datetime: 08/09/2016 13:08 NBP Sys/Adwoa/Mean (mmHg): 140 (QS system process) : 78 (QS system process) : 100 (QS system process) Pulse: 86 (QS system process) LaborFlag: Antepartum (QS system process) Datetime: 08/09/2016 13:00 Monitor Mode: External; Palpation (Lenin Liu RN) Frequency (min): 2-3 (Lenin Liu RN) Quality: Moderate (Lenin Liu RN) Duration (sec): 60-80 (Lenin Liu RN) Duration Criteria: Less than Two 120 Second Contractions (Lenin Liu RN) Pattern: Normal: <= 5 Contractions in 10 Minutes (Lenin Liu RN) Resting Tone (Palpate): Relaxed (Lenin Liu RN) Monitor Mode: External US (Lenin Liu, RACHEAL) FHR Baseline Rate : 145 (Lenin Liu, RACHEAL) Variability: Moderate 6-25 bpm (Lenin Liu RN) Accelerations: 15X15 (Lenin Liu RN) Decelerations: None (Lenin Liu RN) Comments: intermittently picking up maternal hr (Lenin Liu RN) Pitocin (milliunit): Pitocin Increased to (milliunits) @ 20 (Lenin Liu RN) Medication Comments: A Bari GARCIA notified. (Lnein Noe, RN) Communication: RN at Bedside; RN Reviewed Strip (Lenin Noe, RN) Datetime: 08/09/2016 12:58 Comfort Measures: Rocking Chair (Lenin Noe, RN) Datetime: 08/09/2016 12:54 Communication Comments: A Emmel CNM at bedside to assess pt (Lenin Noe, RN) Datetime: 08/09/2016 12:51 Nausea/Vomiting: Present (Lenin Liu, RN) Datetime: 08/09/2016 12:49 Patient Position/Activity: Tailors (Lenin Myers[place]et, RN) Datetime: 08/09/2016 12:46 Respirations: 18 (Lenin Liu RN) Pain Scale: 3 (Lenin Liu RN) Pain Presence: Intermittent (Lenin Liu RN) Pain Type: Contraction (Lenin Liu RN) Pain Location: Abdomen (Lenin Liu RN) Pain Relief Measures: Comfort Measures (Lenin Liu RN) Pain Coping: Breathing Through Contractions; Declines Medication or Epidural (Lenin Liu RN) Comfort Measures: Breathing/Relaxation (Lenin Liu RN) LaborFlag: Antepartum (QS system process) Datetime: 08/09/2016 12:45 Monitor Mode: External; Palpation (Lenin Moiseeet, RN) Monitor Interventions for UA: [place] Adjusted (Lenin Noe, RN) Quality: Moderate (Lenin Noe, RN) Resting Tone (Palpate): Relaxed (Lenin Moiseeet, RN) Contraction Comments: UTD; RN adjusting toco (Lenin Moiseeet, RN) Monitor Mode: External US (Lenin Cranet, RN) FHR Baseline Rate : 145 (Lenin Noe, RN) Variability: Moderate 6-25 bpm (Lenin Noe, RN) Accelerations: 15X15 (Lenin Noe, RN) Decelerations: None (Lenin Moiseeet, RN) Pitocin (milliunit): Pitocin Increased to (milliunits) @ 18 (Lenin Liu, RN) Medication Comments: Per A Emmel CNM order (Lenin Liu, RN) Datetime: 08/09/2016 12:40 Monitor Interventions for UA: [place] Adjusted (Lenin Noe, RN) Datetime: 08/09/2016 12:36 Patient Position/Activity: Left Lateral; Peanut Ball (Lenin Noe, RN) Datetime: 08/09/2016 12:31 Hygiene: Underpad Changed (Lenin Noe, RN) I/O Interventions: Up to BR (Lenin Noe, RN) Datetime: 08/09/2016 12:30 Monitor Mode: External; Palpation (Lenin Noe, RN) Frequency (min): 1-4 (Lenin Noe, RN) Quality: Mild/Moderate (Lenin Moiseeet, RN) Resting Tone (Palpate): Relaxed (Lenin [place], RN) Contraction Comments: Coupling noted (Lenin Liu RN) Monitor Mode: External US (Lenin Liu RN) FHR Baseline Rate : 140 (Lenin Liu RN) Variability: Moderate 6-25 bpm (Lenin Liu RN) Accelerations: 15X15 (Lenin Liu RN) Decelerations: Early (Lenin Liu RN) Pitocin (milliunit): Pitocin Increased to (milliunits) @ 16 (Lenin Liu RN) Communication: RN at Bedside; RN Reviewed Strip (Lenin Liu RN) Datetime: 08/09/2016 12:24 NBP Sys/Adwoa/Mean (mmHg): 139 (QS system process) : 85 (QS system process) : 107 (QS system process) Pulse: 85 (QS system process) LaborFlag: Antepartum (QS system process) Datetime: 08/09/2016 12:15 Monitor Mode: External; Palpation (Lenin Liu RN) Quality: Mild/Moderate (Lenin Liu RN) Resting Tone (Palpate): Relaxed (Lenin Liu RN) Contraction Comments: UTD; RN adjusted toco (Lenin Liu RN) Monitor Mode: External US (Lenin Liu RN) FHR Baseline Rate : 140 (Lenin Liu RN) Variability: Moderate 6-25 bpm (Lenin Liu RN) Accelerations: None (Lenin Liu RN) Decelerations: None (Lenin Liu RN) Pitocin (milliunit): Pitocin Increased to (milliunits) @ 14 (Lenin Liu RN) Communication: RN at Bedside; RN Reviewed Strip (Lenin Liu RN) Datetime: 08/09/2016 12:11 Monitor Interventions for UA: [place] Adjusted (Lenin iLu RN) Datetime: 08/09/2016 12:10 Patient Position/Activity: Tailors (Lenin Liu RN) Datetime: 08/09/2016 12:00 Monitor Mode: External; Palpation (Lenin Liu RN) Frequency (min): 2.5-4 (Lenin Liu RN) Quality: Mild/Moderate (Lenin Liu RN) Duration (sec): 60-80 (Lenin Liu RN) Duration Criteria: Less than Two 120 Second Contractions (Lenin Liu RN) Pattern: Normal: <= 5 Contractions in 10 Minutes (Lenin Liu RN) Resting Tone (Palpate): Relaxed (Lenin Liu RN) Monitor Mode: External US (Lenin Liu RN) FHR Baseline Rate : 140 (Lenin Liu RN) Variability: Moderate 6-25 bpm (Lenin Liu RN) Accelerations: 15X15 (Lenin Liu RN) Decelerations: None (Lenin Liu RN) Pitocin (milliunit): Pitocin Increased to (milliunits) @ 12 (Lenin Liu RN) Communication: RN at Bedside; RN Reviewed Strip (Lenin Liu RN)
--- NOTE | 2016-08-09 16:01 | L&D Flow Sheet ---
LD Flowsheet Datetime Report Generated by CPN: 08/09/2016 16:00 Datetime: 08/09/2016 15:58 Monitor Interventions for FHR: Ultrasound Adjusted (Lenin Noe, RN) Datetime: 08/09/2016 15:54 NBP Sys/Adwoa/Mean (mmHg): 158 (QS system process) : 73 (QS system process) : 105 (QS system process) Pulse: 96 (QS system process) LaborFlag: Antepartum (QS system process) Datetime: 08/09/2016 15:52 Monitor Interventions for FHR: Ultrasound Adjusted (Lenin Noe, RN) Datetime: 08/09/2016 15:45 Monitor Mode: External; Palpation (Lenin Noe, RN) Quality: Moderate to Strong (Lenin Noe, RN) Resting Tone (Palpate): Relaxed (Lenin Noe, RN) Contraction Comments: UTD: pt off monitors (Lenin Noe, RN) Monitor Mode: External US (Lenin Noe, RN) FHR Baseline Rate : 140 (Lenin Noe, RN) Variability: Moderate 6-25 bpm (Lenin Noe, RN) Accelerations: 15X15 (Lenin Noe, RN) Decelerations: None (Lenin Noe, RN) Datetime: 08/09/2016 15:43 Monitor Interventions for UA: [place] Adjusted (Lenin Noe, RN) Datetime: 08/09/2016 15:42 Comfort Measures: Rocking Chair; Family Support (Lenin Noe, RN) Datetime: 08/09/2016 15:40 Antibiotics: Penicillin IV (Units) @ [id number] (Lenin Noe, RN) Datetime: 08/09/2016 15:30 Monitor Mode: External; Palpation (Lenin Liu RN) Frequency (min): 2-3 (Lenin Liu RN) Quality: Moderate to Strong (Lenin Liu RN) Duration (sec): 60-80 (Lenin Liu RN) Duration Criteria: Less than Two 120 Second Contractions (Lenin Liu RN) Pattern: Normal: <= 5 Contractions in 10 Minutes (Lenin Liu RN) Resting Tone (Palpate): Relaxed (Lenin Liu RN) Monitor Mode: External US (Lenin Liu RN) FHR Baseline Rate : 135 (Lenin Liu RN) Variability: Moderate 6-25 bpm (Lenin Liu RN) Accelerations: 15X15 (Lenin Liu RN) Decelerations: None (Lenin Liu RN) Communication: RN at Bedside; RN Reviewed Strip (Lenin Liu RN) Datetime: 08/09/2016 15:27 Pitocin (milliunit): Pitocin Increased to (milliunits) @ 20 (Lenin Liu RN) Medication Comments: per Dana Candelaria CNM order; Provider aware (Lenin Liu RN) I/O Interventions: Up to BR (Lenin Liu RN) Provider Reviewed Strip: Yes (Lenin Liu RN) Strip Reviewed by: Dana Candelaria CNM (Lenin Liu RN) Datetime: 08/09/2016 15:15 Monitor Mode: External; Palpation (Lenin Liu RN) Frequency (min): 2-2.5 (Lenin Liu RN) Quality: Moderate to Strong (Lenin Liu RN) Duration (sec): 60-80 (Lenin Liu RN) Duration Criteria: Less than Two 120 Second Contractions (Lenin Liu RN) Pattern: Normal: <= 5 Contractions in 10 Minutes (Lenin Liu RN) Resting Tone (Palpate): Relaxed (Lenin Liu RN) Monitor Mode: External US (Lenin Liu RN) FHR Baseline Rate : 145 (Lenin Liu RN) Variability: Moderate 6-25 bpm (Lenin Liu RN) Accelerations: 10X10 (Lenin Liu RN) Decelerations: None (Lenin Liu RN) Pitocin (milliunit): Pitocin Remains (milliunits) @ 18 (Lenin Liu RN) Communication: RN at Bedside; RN Reviewed Strip (Lenin Liu RN) Datetime: 08/09/2016 15:10 NBP Sys/[place]wo[place]/Mean (mmHg): 127 (QS system process) : 81 (QS system process) : 100 (QS system process) Pulse: 86 (QS system process) LaborFlag: Antepartum (QS system process) Datetime: 08/09/2016 15:00 Respirations: 18 (Lenin Liu, RN) Monitor Mode: External; Palpation (Lenin Liu, RN) Frequency (min): 1.5-3 (Lenin Liu, RN) Quality: Moderate to Strong (Lenin Moiseeet, RN) Duration (sec): 60-90 (Lenin Moiseeet, RN) Duration Criteria: Less than Two 120 Second Contractions (Lenin Liu, RN) Pattern: Normal: <= 5 Contractions in 10 Minutes (Lenin Moiseeet, RN) Resting Tone (Palpate): Relaxed (Lenin Moiseeet, RN) Monitor Mode: External US (Lenin Liu, RN) FHR Baseline Rate : 145 (Lenin Cranet, RN) Variability: Moderate 6-25 bpm (Lenin Noe, RN) Accelerations: 15X15 (Lenin Noe, RN) Decelerations: None (Lenin Cranet, RN) Level of Consciousness: Fully Conscious (Lenin Liu, RN) Headache: Denies (Lenin Liu RN) Nausea/Vomiting: Denies (Lenin Liu RN) RUQ Epigastric Pain: Denies (Lenin Liu RN) Pitocin (milliunit): Pitocin Increased to (milliunits) @ 18 (Lenin Liu RN) Communication: RN at Bedside; RN Reviewed Strip (Lenin Liu RN) LaborFlag: Antepartum (QS system process) Datetime: 08/09/2016 14:54 NBP Sys/[place]/Mean (mmHg): 138 (QS system process) : 95 (QS system process) : 110 (QS system process) Pulse: 85 (QS system process) LaborFlag: Antepartum (QS system process) Datetime: 08/09/2016 14:45 Respirations: 18 (Lenin Liu RN) Monitor Mode: External; Palpation (Lenin Liu RN) Frequency (min): 2-3 (Lenin Liu RN) Quality: Moderate (Lenin Liu RN) Duration (sec): 60-80 (Lenin Liu RN) Duration Criteria: Less than Two 120 Second Contractions (Lenin Liu RN) Pattern: Normal: <= 5 Contractions in 10 Minutes (Lenin Liu RN) Resting Tone (Palpate): Relaxed (Lenni Liu RN) Monitor Mode: External US (Lenin Liu RN) FHR Baseline Rate : 145 (Lenin Liu RN) Variability: Moderate 6-25 bpm (Lenin Liu RN) Accelerations: 15X15 (Lenin Liu RN) Decelerations: None (Lenin Liu RN) Level of Consciousness: Fully Conscious (Lenin Liu RN) Headache: Denies (Lenin Liu RN) Nausea/Vomiting: Denies (Lenin Liu RN) RUQ Epigastric Pain: Denies (Lenin Liu RN) Pitocin (milliunit): Pitocin Increased to (milliunits) @ 16 (Lenin Liu RN) Communication: RN at Bedside; RN Reviewed Strip (Lenin Liu RN) LaborFlag: Antepartum (QS system process) Datetime: 08/09/2016 14:43 Monitor Interventions for UA: [place] Adjusted (Lenin Liu RN) Datetime: 08/09/2016 14:30 Monitor Mode: External; Palpation (Lenin Liu RN) Frequency (min): 2-2.5 (Lenin Liu RN) Quality: Moderate (Lenin Liu RN) Duration (sec): 60-90 (Lenin Liu RN) Duration Criteria: Less than Two 120 Second Contractions (Lenin Liu RN) Pattern: Normal: <= 5 Contractions in 10 Minutes (Lenin Liu RN) Resting Tone (Palpate): Relaxed (Lenin Liu RN) Monitor Mode: External US (Lenin Liu RN) FHR Baseline Rate : 140 (Lenin Liu RN) Variability: Moderate 6-25 bpm (Lenin Liu RN) Accelerations: 15X15 (Lenin Liu RN) Decelerations: None (Lenin Liu RN) Pain Scale: 4 (Lenin Liu RN) Pain Presence: Intermittent (Lenin Liu RN) Pain Type: Contraction (Lenin iLu RN) Pain Location: Abdomen (Lenin Liu RN) Pain Relief Measures: Comfort Measures (Lenin Liu RN) Pain Coping: Breathing Through Contractions; Declines Medication or Epidural (Lenin Liu RN) Pitocin (milliunit): Pitocin Increased to (milliunits) @ (Annotations: 14 ) (Lenin Liu RN) Comfort Measures: Breathing/Relaxation; Family Support (Lenin Liu RN) Communication: RN at Bedside; RN Reviewed Strip (Lenin Liu RN) LaborFlag: Antepartum (QS system process) Datetime: 08/09/2016 14:15 Monitor Interventions for UA: [place] Adjusted (Lenin Liu RN) Monitor Mode: External US (Lenin Liu, RN) FHR Baseline Rate : 140 (Lenin Liu, RN) Variability: Moderate 6-25 bpm (Lenin Liu, RN) Accelerations: 15X15 (Lenin Moiseeet, RN) Decelerations: None (Lenin Liu, RN) Pitocin (milliunit): Pitocin Increased to (milliunits) @ 12 (Lenin Liu, RACHEAL) Communication: RN at Bedside; RN Reviewed Strip (Lenin Liu, RACHEAL) Datetime: 08/09/2016 14:10 Communication Comments: Pt standing at bedside, family at side. (Lenin Moiseeet, RN) Datetime: 08/09/2016 14:00 Respirations: 16 (Lenin Liu RN) Monitor Mode: External; Palpation (Lenin Liu RN) Frequency (min): 2-2.5 (Lenin Liu RN) Quality: Mild/Moderate (Lenin Liu RN) Duration (sec): 60-80 (Lenin Liu RN) Resting Tone (Palpate): Relaxed (Lenin Liu RN) Monitor Mode: External US (Lenin Liu RN) FHR Baseline Rate : 145 (Lenin Liu RN) Variability: Moderate 6-25 bpm (Lenin Liu RN) Accelerations: 15X15 (Lenin Liu RN) Decelerations: None (Lenin Liu RN) Pitocin (milliunit): Pitocin Decreased to (milliunits) @ 10 (Lenin Liu RN) Medication Comments: Per Dana Candelaria CNM order to decrease pitocin to 10mu increase by 2 q 15min (Lenin Liu RN) LaborFlag: Antepartum (QS system process)
[2016-08-09 16:26] LABS: ABSOLUTE LYMPHOCYTES (AUTO) 1.8 10^3/uL (0.5-4.7); ABSOLUTE MONOCYTES (AUTO) 0.5 10^3/uL (0.1-1.4); ABSOLUTE NEUT (AUTO) 10.9 10^3/uL (1.7-8.2); BASOPHILS % (AUTO) 0.4 % (0-2); EOSINOPHILS % (AUTO) 0.2 % (0-6); HEMATOCRIT 31.2 % (36.0-47.0); HEMOGLOBIN 10.5 g/dL (12.0-15.5); HGB HCT DIFFERENCE 0.3; LYMPHOCYTES % (AUTO) 13.7 % (13-45); MEAN CORPUSCULAR HEMOGLOBIN 25.9 pg (27.0-33.4); MEAN CORPUSCULAR HGB CONC 33.6 g/dL (32.0-36.0); MEAN CORPUSCULAR VOLUME 77 fl (80-97); MONOCYTES % (AUTO) 3.9 % (3-13); RED BLOOD COUNT 4.03 10^6/uL (3.72-5.28); RED CELL DISTRIBUTION WIDTH 14.8 % (11.5-14.0); SEGMENTED NEUTROPHILS % (AUTO) 81.8 % (42-78); WHITE BLOOD COUNT 13.3 10^3/uL (4.0-10.5)
[2016-08-09 16:44] LABS: ALANINE AMINOTRANSFERASE 40 U/L (9-52); ALKALINE PHOSPHATASE 227 U/L (38-126); ANION GAP 12 (5-19); ASPARTATE AMINO TRANSFERASE 38 U/L (14-36); BLOOD UREA NITROGEN 5 mg/dL (7-20); CALCIUM 8.8 mg/dL (8.4-10.2); CARBON DIOXIDE 22 mmol/L (22-30); CHLORIDE 105 mmol/L (98-107); CREATININE RESULT 0.63 mg/dL (0.52-1.25); GLUCOSE 80 mg/dL (75-110); LDH 588 U/L (313-618); POTASSIUM 3.9 mmol/L (3.6-5.0); SODIUM 139.2 mmol/L (137-145); TOTAL PROTEIN 6.2 g/dL (6.3-8.2)
[2016-08-09] MEDS ORDERED: FENTANYL/BUPIVACAINE/NS/PF 200 MCG/100 ML RTUINJ EPI ONE (16:54)
[2016-08-09] MEDS ORDERED: EPHEDRINE SULFATE INJ 50 MG/1 ML AMPULE ONE (16:54)
[2016-08-09] MEDS ORDERED: BUPIVACAINE HCL 0.25 % INJ/PF (2.5 MG/1 ML) 30 ML VIAL ONE (16:55)
--- NOTE | 2016-08-09 17:52 | L&D Progress Notes ---
PROGRESS NOTES Datetime Report Generated by CPN: 08/09/2016 17:52 PROGRESS NOTE Impression: Normal Progression of Labor Impression: Normal Progression of Labor Procedures: Artificial ROM Plan: Continue Present Management; Induction Plan: Induction Informed Consent Obtained: Vaginal Delivery; Risks, Benefits and Alternatives Discussed Informed Consent Obtained: Induction of Labor; Risks, Benefits and Alternatives Discussed Vital Signs : Reviewed Vital Signs : Reviewed Comment: pt s/p epidural cervix -8/-2 peanut ball pt comfortable cat 1 nst continue pitocin augmentation plan of care reviewed with pt and family anticipate Comment: 32 yo admitted for iol/ preeclampsia EDc 08/29/16 EGa 37 weeks abdomen soft nontender FHts 130s average variability uterine contractions 2-4 min start pitocin per protocol anticipate VAGINAL EXAM Dilatation: 6 Effacement: 50 MEMBRANES Poolin Membranes: Ruptured Membranes: Intact Amniotic Fluid Color: Clear Amniotic Fluid Color: Clear FETUS A FHR - Baseline: 120 Monitoring: External US Monitoring: External US Variability: Moderate 6-25bpm Accelerations: 15X15 Accelerations: 15X15 Decelerations: Early Decelerations: None FHR Category: Category I FHR Category: Category I : 37.1 Presentation: Vertex SIGNATURE SIGNATURE: ,[id number] SIGNATURE: [id number] Assignment: Mya Mercedes MD Signature: with User ID: [email or web address] : with User ID: Bethanie
--- NOTE | 2016-08-09 18:01 | L&D Flow Sheet ---
LD Flowsheet Datetime Report Generated by CPN: 08/09/2016 18:00 Datetime: 08/09/2016 17:50 NBP Sys/[place]woa/Mean (mmHg): 114 (QS system process) : 58 (QS system process) : 79 (QS system process) Pulse: 91 (QS system process) LaborFlag: Antepartum (QS system process) Datetime: 08/09/2016 17:43 Monitor Interventions for UA: [place] Adjusted (Lenin Noe, RN) Datetime: 08/09/2016 17:38 Communication Comments: A Emmel CNM at bedside to assess pt (Lenin Noe, RN) Datetime: 08/09/2016 17:35 NBP Sys/[place]/Mean (mmHg): 135 (QS system process) : 60 (QS system process) : 86 (QS system process) Pulse: 93 (QS system process) LaborFlag: Antepartum (QS system process) Datetime: 08/09/2016 17:32 Pain Scale: 1 (Lenin Noe, RN) Pain Presence: Intermittent (Lenin Liu RN) Pain Type: Pressure (Lenin Liu RN) Pain Location: Abdomen (Lenin Liu RN) Pain Relief Measures: Epidural Given; Comfort Measures (Lenin Liu RN) LaborFlag: Antepartum (QS system process) Datetime: 08/09/2016 17:30 I/O Interventions: [place] Cath Inserted (Lenin Liu RN) Patient Care Comments: 14F clear yellow urine output; pt tolerated well. (Lenin Liu RN) Datetime: 08/09/2016 17:29 NBP Sys/[place]/Mean (mmHg): 127 (QS system process) : 70 (QS system process) : 92 (QS system process) Pulse: 105 (QS system process) LaborFlag: Antepartum (QS system process) Datetime: 08/09/2016 17:24 NBP Sys/[place]/Mean (mmHg): 131 (QS system process) : 68 (QS system process) : 94 (QS system process) Pulse: 120 (QS system process) LaborFlag: Antepartum (QS system process) Datetime: 08/09/2016 17:23 NBP Sys/[place]/Mean (mmHg): 137 (QS system process) : 65 (QS system process) : 95 (QS system process) Pulse: 105 (QS system process) LaborFlag: Antepartum (QS system process) Datetime: 08/09/2016 17:22 NBP Sys/[place]/Mean (mmHg): 139 (QS system process) : 70 (QS system process) : 96 (QS system process) Pulse: 118 (QS system process) Anesthesia Level Check: T11 (Lenin Liu RN) LaborFlag: Antepartum (QS system process) Datetime: 08/09/2016 17:21 NBP Sys/[place]/Mean (mmHg): 145 (QS system process) : 75 (QS system process) : 103 (QS system process) Pulse: 100 (QS system process) LaborFlag: Antepartum (QS system process) Datetime: 08/09/2016 17:20 NBP Sys/[place]/Mean (mmHg): 130 (QS system process) : 77 (QS system process) : 94 (QS system process) Pulse: 110 (QS system process) LaborFlag: Antepartum (QS system process) Datetime: 08/09/2016 17:19 NBP Sys/[place]wo[place]/Mean (mmHg): 132 (QS system process) : 76 (QS system process) : 98 (QS system process) Pulse: 111 (QS system process) Patient Position/Activity: Left Tilt (Lenin Noe, RN) LaborFlag: Antepartum (QS system process) Datetime: 08/09/2016 17:18 Pulse: 110 (QS system process) SpO2 (%): 99 (QS system process) LaborFlag: Antepartum (QS system process) Datetime: 08/09/2016 17:17 NBP Sys/[place]wo[place]/Mean (mmHg): 160 (QS system process) : 90 (QS system process) : 117 (QS system process) Pulse: 105 (QS system process) LaborFlag: Antepartum (QS system process) Datetime: 08/09/2016 17:16 NBP Sys/[place]/Mean (mmHg): 147 (QS system process) : 66 (QS system process) : 96 (QS system process) Pulse: 106 (QS system process) LaborFlag: Antepartum (QS system process) Datetime: 08/09/2016 17:14 NBP Sys/[place]wo[place]/Mean (mmHg): 153 (QS system process) : 94 (QS system process) : 116 (QS system process) Pulse: 95 (QS system process) Epidural Procedure: Loading Dose (Lenin Cranet, RN) LaborFlag: Antepartum (QS system process) Datetime: 08/09/2016 17:13 NBP Sys/[place]wo[place]/Mean (mmHg): 150 (QS system process) : 92 (QS system process) : 115 (QS system process) Pulse: 111 (QS system process) Pulse: 100 (QS system process) SpO2 (%): 99 (QS system process) Epidural Procedure: Test Dose (Lenin Moiseeet, RN) LaborFlag: Antepartum (QS system process) Datetime: 08/09/2016 17:12 NBP Sys/[place]/Mean (mmHg): 146 (QS system process) : 94 (QS system process) : 113 (QS system process) Pulse: 108 (QS system process) Epidural Procedure: Cath Placed (Lenin Noe, RN) LaborFlag: Antepartum (QS system process) Datetime: 08/09/2016 17:10 Comments: intermittently picking up maternal hr (Lenin Moiseeet, RN) Datetime: 08/09/2016 17:08 NBP Sys/[place]/Mean (mmHg): 144 (QS system process) : 97 (QS system process) : 116 (QS system process) Pulse: 106 (QS system process) Pulse: 102 (QS system process) SpO2 (%): 100 (QS system process) LaborFlag: Antepartum (QS system process) Datetime: 08/09/2016 17:05 NBP Sys/[place]wo[place]/Mean (mmHg): 145 (QS system process) : 94 (QS system process) : 114 (QS system process) Pulse: 113 (QS system process) LaborFlag: Antepartum (QS system process) Datetime: 08/09/2016 17:04 Procedure Verify: Correct Patient Identity; Correct Side and Site are Marked; Accurate Procedure Consent Form; Agreement on Procedure to be Done; Correct Patient Position; Relevant Images and Results are Properly Labeled and Displayed; Addressed Need to Administer Antibiotics or Fluids for Irrigation; Safety Precautions Based on Patient History or Medication Use (Lenin Liu RN) Anesthesia Plans: Epidural (Lenin Liu RN) Epidural Positioning: Sitting (Lenin Liu RN) Datetime: 08/09/2016 17:03 Pulse: 101 (QS system process) SpO2 (%): 100 (QS system process) Procedure Verify: Correct Patient Identity; Correct Side and Site are Marked; Accurate Procedure Consent Form; Agreement on Procedure to be Done; Correct Patient Position; Relevant Images and Results are Properly Labeled and Displayed; Addressed Need to Administer Antibiotics or Fluids for Irrigation; Safety Precautions Based on Patient History or Medication Use (Lenin Liu RN) Anesthesia Plans: Epidural (Lenin Liu RN) Epidural Positioning: Sitting (Lenin Liu RN) Anesthesia Comments: Dr Wade at bedside to obtain consent for epidrual (Lenin Liu RN) LaborFlag: Antepartum (QS system process) Datetime: 08/09/2016 17:02 Contraction Comments: toco removed for epidural (Lenin Liu, RN) Anesthesia Comments: RN remains at bedside continuously to monitor pt and fht during epidural (Lenin Cranet, RN) Datetime: 08/09/2016 17:01 Comments: maternal hr (Lenin Liu RN) Procedure Verify: Correct Patient Identity; Correct Side and Site are Marked; Accurate Procedure Consent Form; Agreement on Procedure to be Done; Correct Patient Position; Relevant Images and Results are Properly Labeled and Displayed; Addressed Need to Administer Antibiotics or Fluids for Irrigation; Safety Precautions Based on Patient History or Medication Use (Lenin Liu RN) Anesthesia Plans: Epidural (Lenin Liu RN) Epidural Positioning: Sitting (Lenin Liu, RACHEAL) Datetime: 08/09/2016 17:00 Anesthesia Comments: Dr Perry at bedside for epidural (Lenin Liu, RN) Datetime: 08/09/2016 16:51 Pain Scale: 5 (Lenin Liu RN) Pain Coping: Requesting Pain Medication or Epidural; Crying (Lenin Liu RN) Pitocin (milliunit): Pitocin Decreased to (milliunits) @ 18 (Lenin Liu RN) Patient Position/Activity: Right Lateral; Peanut Ball (Lenin Liu RN) LaborFlag: Antepartum (QS system process) Datetime: 08/09/2016 16:49 Hygiene: Underpad Changed (Lenin Cranet, RN) Datetime: 08/09/2016 16:47 Dilatation (cm): 7.0 (Lenin Liu RN) Effacement (%): 80 (Lenin Liu RN) Station: -1 (Lenni Liu RN) Exam by: A Emmel CNM (Lenin Liu RN) Vaginal Bleeding: Normal Show (eLnin Liu RN) IV/Blood Work: New IV Bag Hung (Lenin Liu RN) Patient Care Comments: LR bolus for epidral (Lenin Liu RN) Datetime: 08/09/2016 16:46 Communication Comments: A Emmel CNM states to give pt epidural now. (Lenin Liu, RACHEAL) Datetime: 08/09/2016 16:43 Communication Comments: A Emmel CNM at bedside to assess pt (Lenin Noe, RN) Datetime: 08/09/2016 16:41 NBP Sys/[place]wo[place]/Mean (mmHg): 161 (QS system process) : 104 (QS system process) : 127 (QS system process) Pulse: 99 (QS system process) LaborFlag: Antepartum (QS system process) Datetime: 08/09/2016 16:38 Monitor Interventions for UA: [place] Adjusted (Lenin Noe, RN) Datetime: 08/09/2016 16:34 Temperature (F): 98.0 (Lenin Noe, RN) Temperature (C): 36.7 (QS system process) Monitor Interventions for UA: [place] Adjusted (Lenin Liu RN) Patient Position/Activity: Left Lateral; Peanut Ball (Lenin Liu RN) LaborFlag: Antepartum (QS system process) Datetime: 08/09/2016 16:28 I/O Interventions: Up to BR (Lenin Liu, RN) Datetime: 08/09/2016 16:26 Communication Comments: A Emmel CNM at bedside to assess pt (Lenin Noe, RN) Datetime: 08/09/2016 16:25 NBP Sys/[place]/Mean (mmHg): 137 (QS system process) : 80 (QS system process) : 103 (QS system process) Pulse: 93 (QS system process) LaborFlag: Antepartum (QS system process) Datetime: 08/09/2016 16:15 Monitor Mode: External; Palpation (Lenin Liu RN) Frequency (min): 2-4 (Lenin Liu RN) Quality: Moderate to Strong (Lenin Liu RN) Duration (sec): 60-90 (Lenin Liu RN) Duration Criteria: Less than Two 120 Second Contractions (Lenin Liu RN) Pattern: Normal: <= 5 Contractions in 10 Minutes (Lenin Liu RN) Resting Tone (Palpate): Relaxed (Lenin Liu RN) Monitor Mode: External US (Lenin Liu RN) FHR Baseline Rate : 140 (Lenin Liu RN) Variability: Moderate 6-25 bpm (Lenin Liu RN) Accelerations: 15X15 (Lenin Liu RN) Decelerations: None (Lenin Liu RN) Pitocin (milliunit): Pitocin Remains (milliunits) @ 20 (Lenin Liu RN) Communication: RN at Bedside; RN Reviewed Strip (Lenin Liu RN) Datetime: 08/09/2016 16:11 Patient Position/Activity: Right Lateral; Peanut Ball (Lenin Noe, RN) Datetime: 08/09/2016 16:05 Monitor Interventions for FHR: Ultrasound Adjusted (Lenin Noe, RN) Communication Comments: A Emmel CNM at bedside to assess pt (Lenin Noe, RN) Datetime: 08/09/2016 16:04 Communication: RN at Bedside (Lenin Noe, RN) Datetime: 08/09/2016 16:00 Respirations: 18 (Lenin Liu, RN) Monitor Mode: External; Palpation (Lenin Liu, RN) Frequency (min): 1.5-3 (Lenin Liu, RN) Quality: Moderate (Lenin Moiseeet, RN) Duration (sec): 60-90 (Lenin Noe, RN) Duration Criteria: Less than Two 120 Second Contractions (Lenin Liu, RN) Pattern: Normal: <= 5 Contractions in 10 Minutes (Lenin Liu, RN) Resting Tone (Palpate): Relaxed (Lenin Moiseeet, RN) Monitor Mode: External US (Lenin Liu, RN) FHR Baseline Rate : 140 (Lenin Moiseeet, RN) Variability: Moderate 6-25 bpm (Lenin Noe, RN) Accelerations: None (Lenin Noe, RN) Decelerations: None (Lenin Moiseeet, RN) Pain Scale: 4 (Lenin Liu, RN) Pain Presence: Intermittent (Lenin Liu, RN) Pain Type: Contraction (Lenin Liu, RN) Pain Location: Abdomen (Lenin Liu, RN) Pain Relief Measures: Comfort Measures (Lenin iLu, RN) Pain Coping: Breathing Through Contractions; Declines Medication or Epidural (Lenin Liu, RACHEAL) Level of Consciousness: Fully Conscious (Lenin Liu, RACHEAL) Headache: Denies (Lenin Liu, RN) Nausea/Vomiting: Denies (Lenin Liu, RN) RUQ Epigastric Pain: Denies (Lenin Liu, RACHEAL) Pitocin (milliunit): Pitocin Remains (milliunits) @ 20 (Lenin Liu, RACHEAL) IV/Blood Work: Labs Drawn (Lenin Liu, RACHEAL) Comfort Measures: Breathing/Relaxation; Rocking Chair; Family Support (Lenin Liu RN) Communication: RN at Bedside; RN Reviewed Strip (Lenin Liu RN) LaborFlag: Antepartum (QS system process)
--- NOTE | 2016-08-09 20:01 | L&D Flow Sheet ---
LD Flowsheet Datetime Report Generated by CPN: 08/09/2016 20:00 Datetime: 08/09/2016 19:34 NBP Sys/Adwoa/Mean (mmHg): 136 (QS system process) : 89 (QS system process) : 108 (QS system process) Pulse: 96 (QS system process) Datetime: 08/09/2016 19:16 Communication: Report Given to @ R Vitrano RN at bedside (Lenin Noe, RN) Datetime: 08/09/2016 19:15 Stage of : Recovery (Carli Vitrano, RN) Pain Scale: 0 (Carli Vitrano, RN) Pain Presence: None/Denies (Carli Vitrano, RN) Pain Type: N/A (Carli Vitrano, RN) Datetime: 08/09/2016 19:14 Stage of : Recovery (Carli Vitrano, RN) Datetime: 08/09/2016 19:13 Stage of : Recovery (Mariopsa Aldair, RN) Datetime: 08/09/2016 19:09 Communication Comments: viable babygirl (Mariposa Quinteros, RN) Datetime: 08/09/2016 19:08 Comments: RN adjusting ultrasound for fht (Lenin Liu RN) Pushing: No Urge to Push; Involuntary Pushing (Mariposa Quinteros, RN) Pushing Position: Pushing with Contractions; Pushing Lithotomy (Mariposa Quinteros RN) Pushing Progress: with Pushing; Pushing Effectively with Contractions (Mariposa Quinteros, RN) Communication Comments: bed broken down for delivery (Mariposa Quinteros, RN) Datetime: 08/09/2016 19:05 Communication: Provider at Bedside (Mariposa Quinteros RN) Communication Comments: Dr. Mercedes at bedside (Mariposa Quinteros, RN) Datetime: 08/09/2016 19:04 Dilatation (cm): 10.0 (Mariposa Quinteros, RN) Effacement (%): 100 (Mariposa Quinteros RN) Station: 2 (Mariposa Quinteros RN) Exam by: SJulian Liu, RN (Mariposa Quinteros, RN) Datetime: 08/09/2016 19:01 Communication Comments: Dr Mercedes called and notified of fht tachycardia, pt pain, vs, efm strip. Provider states she will come assess patient. (Lenin Liu RN) Datetime: 08/09/2016 19:00 Monitor Mode: External; Palpation (Lenin Liu RN) Frequency (min): 2-2.5 (Lenin Liu RN) Quality: Moderate to Strong (Lenin Liu RN) Duration (sec): 60-80 (Lenin Liu RN) Duration Criteria: Less than Two 120 Second Contractions (Lenin Liu RN) Pattern: Normal: <= 5 Contractions in 10 Minutes (Lenin Liu RN) Resting Tone (Palpate): Relaxed (Lenin Liu RN) Monitor Mode: External US (Lenin Liu RN) FHR Baseline Changes: Unable to Determine (Lenin Liu RN) Variability: Moderate 6-25 bpm (Lenin Liu RN) Accelerations: Prolonged (Lenin Liu RN) Comments: Broken tracing (Lenin Liu RN) Pitocin (milliunit): Pitocin Remains (milliunits) @ 18 (Lenin Liu RN) Communication: RN at Bedside; RN Reviewed Strip (Lenin Liu RN) Datetime: 08/09/2016 18:50 NBP Sys/Adwoa/Mean (mmHg): 148 (QS system process) : 106 (QS system process) : 121 (QS system process) Pulse: 121 (QS system process) LaborFlag: Antepartum (QS system process) Datetime: 08/09/2016 18:45 Monitor Mode: External; Palpation (Lenin Liu RN) Quality: Moderate (Lenin Liu RN) Resting Tone (Palpate): Relaxed (Lenin Liu RN) Contraction Comments: Pt off monitors (Lenin Liu RN) Monitor Mode: External US (Lenin Liu RN) FHR Baseline Rate : 155 (Lenin Liu RN) Variability: Moderate 6-25 bpm (Lenin Liu RN) Accelerations: 15X15 (Lenin Liu RN) Decelerations: None (Lenin Liu RN) Comments: Broken tracing; RN adjusting (Lenin Liu RN) Pitocin (milliunit): Pitocin Remains (milliunits) @ 18 (Lenin Liu RN) Patient Position/Activity: Trendelenburg (Lenin Liu RN) Communication: RN at Bedside; RN Reviewed Strip (Lenin Liu RN) Datetime: 08/09/2016 18:41 Patient Position/Activity: Left Lateral; Peanut Ball (Lenin Noe, RN) Datetime: 08/09/2016 18:35 Temperature (F): 97.9 (Kristina Martinez, RN) Temperature (C): 36.6 (QS system process) LaborFlag: Antepartum (QS system process) Datetime: 08/09/2016 18:31 Patient Position/Activity: Hands-Knees (Kristina Martinez, RN) Datetime: 08/09/2016 18:30 Respirations: 18 (Lenin Liu RN) Monitor Mode: External; Palpation (Lenin Liu RN) Frequency (min): 2-3 (Lenin Liu RN) Quality: Moderate (Lenin Liu RN) Duration (sec): 60-80 (Lenin Liu RN) Duration Criteria: Less than Two 120 Second Contractions (Lenin Liu RN) Pattern: Normal: <= 5 Contractions in 10 Minutes (Lenin Liu RN) Resting Tone (Palpate): Relaxed (Lenin Liu RN) Monitor Mode: External US (Lenin Liu RN) FHR Baseline Rate : 155 (Lenin Liu RN) Variability: Moderate 6-25 bpm (Lenin Liu RN) Accelerations: Prolonged (Lenin Liu RN) Decelerations: None (Lenin Liu RN) Pitocin (milliunit): Pitocin Remains (milliunits) @ 18 (Lenin Liu RN) Communication: RN at Bedside; RN Reviewed Strip (Lenin Liu RN) LaborFlag: Antepartum (QS system process) Datetime: 08/09/2016 18:28 Pain Type: Pressure (Lenin Liu RN) Pain Assessment Comments: Pt c/o constant pressure (Lenin Liu RN) Dilatation (cm): 6.0 (Lenin Liu RN) Effacement (%): 70 (Lenin Liu RN) Station: -2 (Lenin Liu RN) Exam by: Lynette Liu RN (Lenin Liu RN) Cervix, Consistency: Soft (Lenin Liu RN) Cervix, Position: Posterior (Lenin Liu RN) LaborFlag: Antepartum (QS system process) Datetime: 08/09/2016 18:15 Monitor Mode: External; Palpation (Lenin Liu RN) Frequency (min): 2-4 (Lenin Liu RN) Quality: Moderate (Lenin Liu RN) Duration (sec): 70-80 (Lenin Liu RN) Duration Criteria: Less than Two 120 Second Contractions (Lenin Liu RN) Pattern: Normal: <= 5 Contractions in 10 Minutes (Lenin Liu RN) Resting Tone (Palpate): Relaxed (Lenin Liu RN) Monitor Mode: External US (Lenin Liu RN) FHR Baseline Rate : 155 (Lenin Liu RN) Variability: Moderate 6-25 bpm (Lenin Liu RN) Accelerations: 15X15 (Lenin Liu RN) Decelerations: None (Lenin Liu RN) Pitocin (milliunit): Pitocin Remains (milliunits) @ (Lenin Liu RN) Communication: RN at Bedside; RN Reviewed Strip (Lenin Liu RN) Datetime: 08/09/2016 18:05 Antiemetics/Antacids: Maalox PO (ml) @ 30 (Lenin Noe, RN) Medication Comments: per Dr Mercedes order (Lenin Noe, RN) Datetime: 08/09/2016 18:00 Monitor Mode: External; Palpation (Lenin Noe, RN) Frequency (min): 2-2.5 (Lenin Noe, RN) Quality: Moderate (Lenin Noe, RN) Duration (sec): 60-80 (Lenin Noe, RN) Duration Criteria: Less than Two 120 Second Contractions (Lenin Noe, RN) Pattern: Normal: <= 5 Contractions in 10 Minutes (Lenin Noe, RN) Resting Tone (Palpate): Relaxed (Lenin Noe, RN) Monitor Mode: External US (Lenin Moiseeet, RN) FHR Baseline Rate : 140 (Lenin Noe, RN) Variability: Moderate 6-25 bpm (Lenni Noe, RN) Accelerations: 15X15 (Lenin Noe, RN) Decelerations: None (Lenin Noe, RN) Pitocin (milliunit): Pitocin Remains (milliunits) @ (Lenin Liu, RACHEAL) Provider Reviewed Strip: Yes (Lenin Liu RN) Strip Reviewed by: Daren (Lenin Liu, RACHEAL) Communication: RN at Bedside; RN Reviewed Strip (Lenin Liu RN)
[2016-08-09] MEDS ORDERED: MEASLES,MUMPS&RUBELLA VACC/PF 0.5 ML VIAL SUBCUT PRN (20:57)
[2016-08-09] MEDS ORDERED: BENZOCAINE/MENTHOL AEROSOL SPRAY 56 ML TOP PRN (20:57)
[2016-08-09] MEDS ORDERED: DIPH/PERTUSS(ACELL)/TETANUS VAC/PF 0.5 ML SYR (>=10YO) IM PRN (20:57)
[2016-08-09] MEDS ORDERED: ZOLPIDEM TARTRATE 5 MG TABLET PO PRN (20:57)
[2016-08-09] MEDS ORDERED: ACETAMINOPHEN WITH CODEINE #3 TABLET PO PRN ×2 (20:57)
[2016-08-09] MEDS ORDERED: DIBUCAINE 1% OINTMENT 28 GM TP PRN (20:57)
[2016-08-09] MEDS ORDERED: OXYTOCIN/NORMAL SALINE 1,000 ML IV PRN (20:57)
--- NOTE | 2016-08-09 21:03 | Delivery Summary ---
Del Sum A-C Datetime Report Generated by CPN: 08/09/2016 21:03 ADMISSION DATA Chief Complaint: Signs/Symptoms Gestational HTN; Scheduled Induction of Labor Indication for Induction: Gest. HTN/PreEclampsia/Eclampsia Admission Impression: Term, Intrauterine ; No Active Labor; Intact Membranes; Induction of Labor Admit Provider Comments: 36yo with PreE and h/o macrosomia with 9#baby. also complicated by Hashimotos thyroiditis. GBS positive. Cvx 0.5/th/hi. Cervidil placed at approx 2245 last pm for cervical ripening. Pt reports it fell out in the toilet at 0615 this am. no cervical change since last night. PIH labs done with no change and normal. Pt is asymptomatic at this time. EFW 2984g at 35wks. Will continue IOL with FB and pitocin. Anticipate . DELIVERY PERSONNEL Delivery Doctor:: Mya Mercedes MD Labor and Delivery Nurse:: Lenin Liu RNperipatologist Nurse:: Mariposa Quinteros RN Environmental Services Worker:: Syeda Estrada RN Enlisted Aircrew/Aerial Observer/Gunner/CERTIFIED APPLIANCE SERVICE TECHNICIAN: Leslie Abhay, [employer] MATERNAL INFORMATION Delivery Anesthesia: Epidural Medications After Delivery: Pitocin Drip 20 Units/1000ml NSS Meds After Delivery Comment: 20 units Pitocin in 1 L NS bolusing per order Estimated Blood Loss (ml): 200 Maternal Complications: None Provider Comments: over intact perineum, no lacs. live female infant ap 8/9. spontaneous intact placenta 3vc. nuchal times one easily reduced. no complications LABOR SUMMARY EDC: 08/29/2016 00:00 No. Babies in Womb: 1 Attempted: No Labor Anesthesia: Epidural LABOR INFORMATION Reason for Induction: Pre-Eclampsia Onset of Labor: 08/09/2016 10:07 Complete Dilatation: 08/09/2016 19:04 Cervical Ripening Agents: Cervidil Oxytocin: Induction Group B Beta Strep: Positive Antibiotics # of Doses: 4 Antibiotics Time of Last Dose: 1540 Name of Antibiotic Given: PCN Steroids Given: None Reason Steroids Not Administered: Not Applicable MEMBRANES Membranes Rupture Method: Artificial Rupture of Membranes: 08/09/2016 10:07 Length of Rupture (hr): 9.03 Amniotic Fluid Color: Clear Amniotic Fluid Amount: Large Amniotic Fluid Odor: Normal STAGES OF LABOR Stage 1 hr: 8 Stage 1 min: 57 Stage 2 hr: 0 Stage 2 min: 5 Stage 3 hr: 0 Stage 3 min: 5 Total Time in Labor hr: 9 Total Time in Labor min: 7 VAGINAL DELIVERY Episiotomy: None Laceration Extension: N/A Laceration Type: None Laceration Repair: Not Applicable Sponge Count Correct: N/A Sharps Count Correct: N/A CSECTION DELIVERY Primary Indication: N/A Secondary Indication: N/A CSection Incidence: N/A Labor: N/A Elective: N/A CSection Incision: N/A BABY A INFORMATION Delivery Date/Time: 08/09/2016 19:09 Method of Delivery: Vaginal Born in Route : No : N/A Forceps: N/A Vacuum Extraction: N/A Shoulder Dystocia : No PRESENTATION/POSITION BABY A Presentation: Cephalic Cephalic Presentation: Vertex Vertex Position: Left Occipital Anterior Breech Presentation: N/A PLACENTA INFORMATION BABY A Placenta Delivery Time : 08/09/2016 19:14 Placenta Method of Delivery: Spontaneous Placenta Status: Delivered SCORES BABY A Heart Rate 1 min: >100 bpm Resp Effort 1 min: Good Cry Reflex Irritability 1 min: Cough or Sneeze or Pulls Away Muscle Tone 1 min: Active Motion Color 1 min: Blue/Pale Resuscitation Effort 1 min: Tactile Stimulation SCORE 1 MIN: 8 Heart Rate 5 min: >100 bpm Resp Effort 5 min: Good Cry Reflex Irritability 5 min: Cough or Sneeze or Pulls Away Muscle Tone 5 min: Active Motion Color 5 min: Body [place], Extremities Blue Resuscitation Effort 5 min: Tactile Stimulation SCORE 5 MIN: 9 INFANT INFORMATION BABY A Gestational Age at Delivery: 37.1 Gestational Status: Early Term- 37- 38.6 Weeks Outcome : Liveborn Condition : Stable Sex: Female IDENTIFICATION BABY A Infant Verification Date/Time: 08/09/2016 19:25 ID Band Number: [id number] Mother's Name Verified: Yes Infant RN Verifying : RN Fore Additional Verifying Personnel: D Topher WEIGHT/LENGTH BABY A Infant Birthweight (gm): 3350 Weight (lb): 7 Infant Weight (oz): 6 Length (in): 20.50 Infant Length (cm): 52.07 CORD INFORMATION BABY A No. Cord Vessels: 3 Nuchal Cord : Around Neck x1, Loose Cord Blood Taken: Yes-For Storage (Mom's Blood type +) Infant Suction: Mouth; Nose ASSESSMENT BABY A Infant Complications: None Physical Findings at Delivery: Caput Succedaneum Respirations: Appears Normal Skin to Skin: Yes Skin to Skin Time (min): 60 Plant Wire Chief/ALS Called : Yes Infant Care By: Hamilton Liu RN Transferred To: Remains with Mother BABY B INFORMATION : N/A SIGNATURES Signature: with User ID: [email or web address]
[2016-08-09] MEDS ORDERED: IBUPROFEN 800 MG TABLET ONE (21:17)
[2016-08-09] MEDS ORDERED: NA PHOS,M-B/NA PHOS,DI-BA (ADULT) 133 ML ENEMA PR PRN (21:18)
[2016-08-09] MEDS ORDERED: PROMETHAZINE HCL 25 MG TABLET PO PRN (21:18)
[2016-08-09] MEDS ORDERED: PROMETHAZINE HCL INJ 25 MG/1 ML VIAL IV PRN (21:18)
[2016-08-09] MEDS ORDERED: GLYCERIN/WITCH HAZEL LEAF 1 EACH MED..PAD TP PRN (21:18)
[2016-08-09] MEDS ORDERED: ACETAMINOPHEN 650 MG SUPP.RECT PR PRN (21:18)
[2016-08-09] MEDS ORDERED: MAGNESIUM HYDROXIDE SUSP 30 ML UDCUP PO PRN (21:18)
[2016-08-09] MEDS ORDERED: PSEUDOEPHEDRINE HCL 30 MG TABLET PO PRN (21:18)
[2016-08-09] MEDS ORDERED: DIPHENHYDRAMINE HCL 25 MG CAPSULE PO PRN (21:18)
[2016-08-09] MEDS ORDERED: PROMETHAZINE HCL 25 MG SUPP.RECT PR PRN (21:18)
[2016-08-09] MEDS: IBUPROFEN 800 MG TABLET PO SCH (21:23)
--- NOTE | 2016-08-09 21:32 | Admission Physical ---
Datetime Report Generated by CPN: 08/09/2016 21:32 CURRENT ADMISSION Chief Complaint: Signs/Symptoms Gestational HTN; Scheduled Induction of Labor Indication for Induction: Gest. HTN/PreEclampsia/Eclampsia Admit Plan: Admit to Unit; Initiate Labor Induction Protocol ALLERGIES Medication Allergies: Yes Medication Allergies: Sulfa (Sulfonamide Antibiotics)/MO/Hives (04/27/2016) Latex: No Latex Allergies OBSTETRICAL HISTORY EDC: 08/29/2016 00:00 : 4 Para: 3 Term: 3 : 0 SAB: 0 IAB: 0 Ectopic: 0 Livin Cesareans: 0 VBACs: 0 Multiple Births: 0 Gestational Diabetes: No Rh Sensitization: No Incompetent Cervix: No SMOOTH: No Infertility: No ART Treatment: No Uterine Anomaly: No IUGR: No Hx Previous C/S: No Macrosomia: Yes Hx Loss/Stillborn: No PIH: Yes Hx : No Placenta Previa/Abruption: No Depression/PP Depression: No PTL/PROM: No Post Hemorrhage: No Current Procedures: Ultrasound; NST Obstetrical History Comments: G1: 2007 39 wk G2: 2010 39 wk, htn G3: 2012 38.6 wk G4: current, chtn/ pre-e, on metformin for insulin resistance; betty's on synthroid SEE RECORDS Alcohol: No Marijuana : No Cocaine: No Other Illicit Drugs: No Cigarettes: Former Smoker. [id number] MEDICAL HISTORY Diabetes: No Blood Transfusion: No Pulmonary Disease (Asthma, TB): No Breast Disease: No Hypertension: Yes Picu Nurse Surgery: No Heart Disease: No Hosp/Surgery: Yes Autoimmune Disorder: No Anesthetic Complications: No Kidney Disease: Yes Abnormal Pap Smear: Yes Neuro/Epilepsy: No Psychiatric Disorders: No Other Medical Diseases: No Hepatitis/Liver Disease: No Significant Family History: No Varicosities/Phlebitis: Yes Trauma/Violence : No Thyroid Dysfunction: Yes Medical History Comments: hypoglycemic, hashimotos-on synthroid , insulin resistance- on metformin kidney stones varicose veins in left leg pap neg +HRHPV 07/2015 INFECTIOUS HISTORY Gonorrhea: No Genital Herpes: No Chlamydia: No Tuberculosis: No Syphilis: No Hepatitis: No HIV/AIDS Exposure: No Rash or Viral Illness: No HPV: No PHYSICAL EXAM General: Normal HEENT: Normal Neurologic: Normal Thyroid: Normal Heart: Normal Lungs: Normal Breast: Deferred Back: Normal Abdomen: Normal Genitourinary Exam: Normal Extremities: Normal DTRs: Normal Pelvic Type: Adequate Vital Signs: Reviewed; Within Normal Limits VAGINAL EXAM Dilatation: 6 Effacement: 50 MEMBRANES Poolin Membranes: Ruptured Amniotic Fluid Color: Clear FETUS A EGA: 37.0 Monitoring: External US FHR- Baseline: 150 Variability: Moderate 6-25bpm Accelerations: 15X15 Decelerations: None FHR Category: Category II Presentation: Vertex Admit Comment: 36yo with PreE and h/o macrosomia with 9#baby. also complicated by Hashimotos thyroiditis. GBS positive. Cvx 0.5/th/hi. Cervidil placed at approx 2245 last pm for cervical ripening. Pt reports it fell out in the toilet at 0615 this am. no cervical change since last night. PIH labs done with no change and normal. Pt is asymptomatic at this time. EFW 2984g at 35wks. Will continue IOL with FB and pitocin. Anticipate . PLANS FOR LABOR AND DELIVERY Labor and Delivery: None Pain Management: Epidural Feeding Preference: Breast Benefit of Breast Feed Discussed: Yes Circumcision: N/A INFORMED CONSENT Informed Consent Obtained: Vaginal Delivery; Risks, Benefits and Alternatives Discussed Signature: with User ID: [email or web address]
[2016-08-09] MEDS: FAMOTIDINE 20 MG TABLET PO SCH (22:23)
[2016-08-10] MEDS: IBUPROFEN 800 MG TABLET PO SCH ×3 (06:01→21:12)
--- NOTE | 2016-08-10 07:01 | L&D Flow Sheet ---
LD Flowsheet Datetime Report Generated by CPN: 08/10/2016 07:00 Datetime: 08/09/2016 21:23 NBP Sys/Adwoa/Mean (mmHg): 149 (QS system process) : 79 (QS system process) : 107 (QS system process) Pulse: 87 (QS system process) Respirations: 16 (Carli Vitrano, RN) Datetime: 08/09/2016 21:14 NBP Sys/Adwoa/Mean (mmHg): 160 (QS system process) : 85 (QS system process) : 114 (QS system process) Pulse: 94 (QS system process) Respirations: 16 (Carli Vitrano, RN) Datetime: 08/09/2016 21:00 Stage of : Recovery (Carli Vitrano, RN) Pain Scale: 0 (Carli Vitrano, RN) Pain Presence: None/Denies (Carli Vitrano, RN) Pain Type: N/A (Carli Vitrano, RN) Datetime: 08/09/2016 20:45 Stage of : Recovery (Carli Vitrano, RN) Datetime: 08/09/2016 20:38 NBP Sys/Adwoa/Mean (mmHg): 148 (QS system process) : 80 (QS system process) : 106 (QS system process) Pulse: 93 (QS system process) Respirations: 16 (Carli Vitrano, RN) Datetime: 08/09/2016 20:35 NBP Sys/Adwoa/Mean (mmHg): 160 (QS system process) : 78 (QS system process) : 108 (QS system process) Pulse: 80 (QS system process) Respirations: 16 (Carli Vitrano, RN) Datetime: 08/09/2016 20:30 Stage of : Recovery (Carli Vitrano, RN) Pain Scale: 0 (Carli Vitrano, RN) Pain Presence: None/Denies (Carli Vitrano, RN) Pain Type: N/A (Carli Vitrano, RN) Datetime: 08/09/2016 20:20 NBP Sys/Adwoa/Mean (mmHg): 146 (QS system process) : 76 (QS system process) : 105 (QS system process) Pulse: 76 (QS system process) Respirations: 16 (Carli Vitrano, RN) Datetime: 08/09/2016 20:05 NBP Sys/Adwoa/Mean (mmHg): 143 (QS system process) : 76 (QS system process) : 103 (QS system process) Pulse: 96 (QS system process) Respirations: 16 (Carli Vitrano, RN) Datetime: 08/09/2016 20:00 Stage of : Recovery (Carli Vitrano, RN) Pain Scale: 0 (Carli Vitrano, RN) Pain Presence: None/Denies (Carli Vitrano, RN) Pain Type: N/A (Carli Vitrano, RN) Datetime: 08/09/2016 19:45 Stage of : Recovery (Carli Vitrano, RN) Pain Scale: 0 (Carli Vitrano, RN) Pain Presence: None/Denies (Carli Vitrano, RN) Pain Type: N/A (Carli Vitrano, RN) Datetime: 08/09/2016 19:34 NBP Sys/Adwoa/Mean (mmHg): 136 (QS system process) : 89 (QS system process) : 108 (QS system process) Pulse: 96 (QS system process) Respirations: 16 (Carli Vitrano, RN) Datetime: 08/09/2016 19:30 Stage of : Recovery (Carli Vitrano, RN) Pain Scale: 0 (Carli Vitrano, RN) Pain Presence: None/Denies (Carli Vitrano, RN) Pain Type: N/A (Carli Vitrano, RN) Datetime: 08/09/2016 19:16 Communication: Report Given to @ R Vitrano RN at bedside ([facility]) Datetime: 08/09/2016 19:15 Stage of : Recovery (Carli Vitrano, RN) Pain Scale: 0 (Carli Vitrano, RN) Pain Presence: None/Denies (Carli Vitrano, RN) Pain Type: N/A (Carli Vitrano, RN) Datetime: 08/09/2016 19:14 Stage of : Recovery (Carli Vitrano, RN) Datetime: 08/09/2016 19:13 Stage of : Recovery (Mariposa Aldair, RN) Datetime: 08/09/2016 19:09 Communication Comments: viable babygirl (Mariposa Aldair, RN) Datetime: 08/09/2016 19:08 Comments: RN adjusting ultrasound for fht (Lenin Liu RN) Pushing: No Urge to Push; Involuntary Pushing (Mariposa Quinteros RN) Pushing Position: Pushing with Contractions; Pushing Lithotomy (Mariposa Quinteros RN) Pushing Progress: with Pushing; Pushing Effectively with Contractions (Mariposa Quinteros RN) Communication Comments: bed broken down for delivery (Mariposa Quinteros, RN) Datetime: 08/09/2016 19:05 Communication: Provider at Bedside (Mariposa Quinteros, RN) Communication Comments: Dr. Mercedes at bedside (Mariposa Quinteros, RN) Datetime: 08/09/2016 19:04 Dilatation (cm): 10.0 (Mariposa Quinteros RN) Effacement (%): 100 (Mariposa Quinteros RN) Station: 2 (Mariposa Quinteros RN) Exam by: Hamilton Liu RN (Mariposa Quinteros RN) Datetime: 08/09/2016 19:01 Communication Comments: Dr Mercedes called and notified of fht tachycardia, pt pain, vs, efm strip. Provider states she will come assess patient. (Lenin Liu RN) Datetime: 08/09/2016 19:00 Monitor Mode: External; Palpation (Lenin Liu RN) Frequency (min): 2-2.5 (Lenin Liu RN) Quality: Moderate to Strong (Lenin Liu RN) Duration (sec): 60-80 (Lenin Liu RN) Duration Criteria: Less than Two 120 Second Contractions (Lenin Liu RN) Pattern: Normal: <= 5 Contractions in 10 Minutes (Lenin Liu RN) Resting Tone (Palpate): Relaxed (Lenin Liu RN) Monitor Mode: External US (Lenin Liu RN) FHR Baseline Changes: Unable to Determine (Lenin Liu RN) Variability: Moderate 6-25 bpm (Lenin Liu RN) Accelerations: Prolonged (Lenin Liu RN) Comments: Broken tracing (Lenin Liu RN) Pitocin (milliunit): Pitocin Remains (milliunits) @ 18 (Lenin Liu RN) Communication: RN at Bedside; RN Reviewed Strip (Lenin Liu RN)
[2016-08-10 07:55] LABS: HEMATOCRIT 28.5 % (36.0-47.0); HEMOGLOBIN 9.4 g/dL (12.0-15.5); HGB HCT DIFFERENCE -0.3; MEAN CORPUSCULAR HEMOGLOBIN 25.5 pg (27.0-33.4); MEAN CORPUSCULAR HGB CONC 33.1 g/dL (32.0-36.0); MEAN CORPUSCULAR VOLUME 77 fl (80-97); RED CELL DISTRIBUTION WIDTH 14.9 % (11.5-14.0); WHITE BLOOD COUNT 12.5 10^3/uL (4.0-10.5)
[2016-08-10] MEDS: FAMOTIDINE 20 MG TABLET PO SCH ×2 (09:25→21:12)
[2016-08-10] MEDS: FERROUS SULFATE 325 MG TABLET PO SCH ×2 (09:25→17:13)
[2016-08-10] MEDS: DOCUSATE SODIUM 100 MG CAPSULE PO SCH ×2 (09:25→17:13)
[2016-08-10] MEDS: LEVOTHYROXINE SODIUM 0.075 MG TABLET PO SCH (09:28)
[2016-08-10] MEDS: SENNOSIDES/DOCUSATE 8.6-50 MG 1 EACH TABLET PO SCH (09:28)
[2016-08-10] MEDS: PRENATAL VITAMIN W-O CA NO5/FE FUMARATE/FA CAPSULE PO SCH (09:28)
--- NOTE | 2016-08-10 09:34 | PDOC PROGRESS REPORT ---
Subjective-OB Subjective: Post Delivery Day: 36 year old. Denies any needs at this time Physical Exam (OB) Vital Signs: Temp Pulse Resp BP Pulse Ox 97.7 F 74 16 129/76 H 99 08/10/16 08:09 08/10/16 08:09 08/10/16 08:09 08/10/16 08:09 08/10/16 08:09 Intake & Output 08/09/16 08/10/16 08/11/16 06:59 06:59 06:59 Weight 99.2 kg - PIH/Pre-Eclampsia DTR's: 2 + Clonus: Negative Headache: Absent Epigastric Pain: No Visual Changes: No - Lochia Lochia Amount: Small 10-25 ml Lochia Color: Rubra/Red - Abdomen Description: Soft Hernia Present: No Bowel Sounds: Normoactive Flatus Presence: Present Stool: No Fundal Description: Firm, Midline Fundal Height: u/u - u/2 Objective-Diagnostic Laboratory: 08/10/16 07:34 08/09/16 16:00 08/09/16 08/09/16 08/10/16 16:00 16:00 07:34 WBC 13.3 H 12.5 H RBC 4.03 3.70 L Hgb 10.5 L 9.4 L Hct 31.2 L 28.5 L MCV 77 L 77 L MCH 25.9 L 25.5 L MCHC 33.6 33.1 RDW 14.8 H 14.9 H Plt Count 256 238 Seg Neutrophils % 81.8 H Lymphocytes % 13.7 Monocytes % 3.9 Eosinophils % 0.2 Basophils % 0.4 Absolute Neutrophils 10.9 H Absolute Lymphocytes 1.8 Absolute Monocytes 0.5 Absolute Eosinophils 0.0 Absolute Basophils 0.0 Sodium 139.2 Potassium 3.9 Chloride 105 Carbon Dioxide 22 Anion Gap 12 BUN 5 L Creatinine 0.63 Est GFR ( Amer) > 60 Est GFR (Non-Af Amer) > 60 Glucose 80 Uric Acid 4.0 Calcium 8.8 Total Bilirubin 1.0 AST 38 H ALT 40 Alkaline Phosphatase 227 H Total Protein 6.2 L Albumin 3.0 L
--- NOTE | 2016-08-10 18:01 | L&D General Admission ---
General Admit Datetime Report Generated by CPN: 08/10/2016 18:00 INFORMATION Patient Age: 35 (08/08/2015 22:39:QS system process) EDC: 08/29/2016 00:00 (08/06/2016 11:20:Keya New RN) : 4 (08/06/2016 11:20:Esther Toth RN) Para: 3 (08/06/2016 11:20:Esther Toth RN) Term: 3 (08/06/2016 11:20:Esther Toth RN) : 0 (08/06/2016 11:20:Esther Toth RN) Spontaneous Abortions: 0 (08/06/2016 11:20:Esther Toth RN) Induced Abortions: 0 (08/06/2016 11:20:Esther Toth RN) Livin (08/06/2016 11:20:Esther Toth RN) Cesareans: 0 (08/06/2016 11:20:Esther Toth RN) VBACs: 0 (08/06/2016 11:20:Esther Toth RN) Ectopic: 0 (08/06/2016 11:20:Esther Toth RN) Multiple Births: 0 (08/06/2016 11:20:Esther Toth RN) Baby, Number in Womb: 1 (08/06/2016 11:20:Esther Toth RN) CARE Primary [employer] Heel Finisher: [facility] (08/06/2016 11:20:Esther Toth RN) Adequate Care: Yes (08/06/2016 11:20:Esther Toth RN) Height (in): 65 (08/08/2015 22:39:QS system process) ALLERGIES Medication Allergy: Yes (08/06/2016 11:20:Earlene Hankins RN) Medication Allergies: Sulfa (Sulfonamide Antibiotics)/MO/Hives (04/27/2016) (08/06/2016 10:58:QS system process) Latex Allergy: No Latex Allergies (08/06/2016 11:20:Earlene Hankins RN) COMMUNICATION Primary Language: Cameroonian (08/06/2016 11:20:Esther Toth RN) Medical Tx Preferred Language: Cameroonian (08/06/2016 11:20:Esther Toth RN) DEMOGRAPHICS Address: [address] [place], [place] [address] [place] [address] (08/08/2015 22:39:QS system process) Zipcode: [address] (08/08/2015 22:39:QS system process) Home (08/06/2016 10:58:QS system process) SSN: [id number] (08/08/2015 22:39:QS system process) Next of Kin Name: NANCI BAKER (08/08/2015 22:39:QS system process) Next of Kin (08/06/2016 10:58:QS system process) Next of Kin Relationship: SPO (08/08/2015 22:39:QS system process) Date of : 1980 (08/08/2015 22:39:QS system process) Marital Status: (08/08/2015 22:39:QS system process) Sex: Female (08/08/2015 22:39:QS system process) Race: (08/08/2015 22:39:QS system process) Ethnicity: Non- or (08/08/2015 22:39:QS system process) Catholic: Hoahaoism (08/08/2015 22:39:QS system process) DRUG AND ALCOHOL USE Alcohol: No (08/06/2016 11:20:Esther Toth RN) Cigarettes: Former Smoker. [id number] (08/06/2016 11:20:Esther Toth RN) Marijuana: No (08/06/2016 11:20:Esther Toth RN) Cocaine: No (08/06/2016 11:20:Esther Toth RN) Other Illicit Drugs: No (08/06/2016 11:20:Esther Toth RN) VACCINE HISTORY Influenza Vaccine: No (08/06/2016 11:20:Earlene Hankins RN) Pneumococcal Vaccine: No (08/06/2016 11:20:Earlene Hankins RN) Tetanus Vaccine: Yes (08/06/2016 11:20:Earlene Hankins RN) Tdap Vaccine: Yes (08/06/2016 11:20:Earlene Hankins RN) Hepatitis B Vaccine: Yes (08/06/2016 11:20:Earlene Hankins RN) Driller Machine: [facility] (08/06/2016 11:20:Earlene Hankins RN) Feeding Preference: Breast (08/06/2016 11:20:Earlene Hankins RN) Benefit of Breast Feed Discussed: Yes (08/06/2016 11:20:Earlene Hankins RN) Circumcision: N/A (08/06/2016 11:20:Earlene Hankins RN) Classes Attended: No (08/06/2016 11:20:Earlene Hankins RN) Tubal Ligation: No (08/06/2016 11:20:Earlene Hankins RN) Tubal Authorization Signed: N/A (08/06/2016 11:20:Earlene Hankins RN) Consent: N/A (08/06/2016 11:20:Earlene Hankins RN) Consent Signed: N/A (08/06/2016 11:20:Earlene Hankins RN) Pain Management Plans: Epidural (08/06/2016 11:20:Earlene Hankins RN) Plans for Labor and Delivery: None (08/06/2016 11:20:Earlene Hankins RN) Support Person: Abraham Baker (08/06/2016 11:20:Earlene Hankins RN) Support Person Relationship: (08/06/2016 11:20:Earlene Hankins RN) Cultural/Spritual Practice: No (08/06/2016 11:20:Earlene Hankins RN) Spir/Cult Dietary Needs: No (08/06/2016 11:20:Earlene Hankins RN) LIVING SITUATION/DISCHARGE PLAN Living Arrangements: House (08/06/2016 11:20:Earlene Hankins RN) Adequate Access to:: Electric; Heat; Refrigeration; Plumbing/Running water; Phone; Transportation (08/06/2016 11:20:Earlene Hankins RN) WIC Program: Yes (08/06/2016 11:20:Earlene Hankins RN) Discharge Briar Wood Sorter Person: Abraham Baker (08/06/2016 11:20:Earlene Hankins RN) Person to Help after Discharge: Abraham Baker (08/06/2016 11:20:Earlene Hankins RN) Currently Using Commun Resources: Yes (08/06/2016 11:20:Earlene Hankins RN) Specify Current Resource Used: medicaid (08/06/2016 11:20:Earlene Hankins RN) Car Seat for Discharge: Yes (08/06/2016 11:20:Earlene Hankins RN) Adoption Requested: No (08/06/2016 11:20:Earlene Hankins RN) Pt Contact w/ Post : N/A (08/06/2016 11:20:Earlene Hankins RN) LABS Blood Type: A Positive (08/06/2016 11:20:Earlene Hankins RN) Antibody Screen: negative (08/06/2016 11:20:Earlene Hankins RN) Rho(G) this : Not Applicable (08/06/2016 11:20:Keya New RN) Hemoglobin: 9.4 L (08/10/2016 07:34:QS system process) Hematocrit: 28.5 L (08/10/2016 07:34:QS system process) MCV: 77 L (08/10/2016 07:34:QS system process) Group Beta Strep: Positive (08/06/2016 11:20:Keya New RN) Gonorrhea: Negative (08/06/2016 11:20:Earlene Hankins RN) Chlamydia: Negative (08/06/2016 11:20:Earlene Hankins RN) RPR/VDRL: Nonreactive (08/06/2016 11:20:Earlene Hankins RN) HIV Results: Negative (08/06/2016 11:20:Keya New RN) Hepatitis B: Negative (08/06/2016 11:20:Earlene Hankins RN) Rubella: Immune (08/06/2016 11:20:Earlene Hankins RN) OB/PREVIOUS HISTORY Previous Procedures: Ultrasound; NST (08/06/2016 11:20:Earlene Hankins RN) Current Procedures: Ultrasound; NST (08/06/2016 11:20:Earlene Hankins RN) History of Previous : No (08/06/2016 11:20:Esther Toth RN) History of Gestational Diabetes: No (08/06/2016 11:20:Esther Toth RN) History of PIH: Yes (08/06/2016 11:20:Esther Toth RN) History of Incompetent Cervix: No (08/06/2016 11:20:Esther Toth RN) History of Placenta Previa/Abrup: No (08/06/2016 11:20:Esther Toth RN) History of Macrosomia: Yes (08/06/2016 11:20:Earlene Hankins RN) History of IUGR: No (08/06/2016 11:20:Esther Toth RN) History of Hemorrhage: No (08/06/2016 11:20:Esther Toth RN) History of Loss/Stillborn: No (08/06/2016 11:20:Esther Toth RN) History of : No (08/06/2016 11:20:Esther Toth RN) History of D (Rh) Sensitization: No (08/06/2016 11:20:Esther Toth RN) History Recurrent Loss/Stillborn: No (08/06/2016 11:20:Esther Toth RN) History Depression/PP Depression: No (08/06/2016 11:20:Esther Toth RN) History of Uterine Anomaly/SMOOTH: No (08/06/2016 11:20:Esther Toth RN) History of Infertility: No (08/06/2016 11:20:Esther Toth RN) History of ART Treatment: No (08/06/2016 11:20:Esther Toth RN) History of SMOOTH: No (08/06/2016 11:20:Esther Toth RN) Comments Obstetrical History: G1: 2007 39 wk G2: 2010 39 wk, htn G3: 2012 38.6 wk G4: current, chtn/ pre-e, on metformin for insulin resistance; betty's on synthroid (08/06/2016 11:20:Earlene Hankins RN) MEDICAL HISTORY Med Hx Diabetes: No (08/06/2016 11:20:Esther Toth RN) Med Hx Hypertension: Yes (08/06/2016 11:20:Earlene Hankins RN) Med Hx Heart Disease: No (08/06/2016 11:20:Esther Toth RN) Med Hx Autoimmune Disorder: No (08/06/2016 11:20:Esther Toth RN) Med Hx Kidney Disease/UTI: Yes (08/06/2016 11:20:Earlene Hankins RN) Med Hx Neurologic/Epilepsy: No (08/06/2016 11:20:Esther Toth RN) Med Hx Psychiatric Disorders: No (08/06/2016 11:20:Esther Toth RN) Med Hx Hepatitis/Liver Disease: No (08/06/2016 11:20:Esther Toth RN) Med Hx Varicosities/Phlebitis: Yes (08/06/2016 11:20:Earlene Hankins RN) Med Hx Thyroid Dysfunction: Yes (08/06/2016 11:20:Esther Toth RN) Med Hx Trauma/Violence: No (08/06/2016 11:20:Esther Toth RN) Med Hx Blood Transfusion: No (08/06/2016 11:20:Esther Toth RN) Med Hx Pulmonary (Asthma,TB): No (08/06/2016 11:20:Esther Toth RN) Med Hx Breast: No (08/06/2016 11:20:Esther Toth RN) 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 (08/06/2016 11:20:Esther Toth RN) Med Hx Hospitalization/Surgery: Yes (08/06/2016 11:20:Earlene Hankins RN) Med Hx Anesthetic Complications: No (08/06/2016 11:20:Esther Toth RN) Med Hx Abnormal Pap Smear: Yes (08/06/2016 11:20:Earlene Hankins RN) Other Medical Diseases: No (08/06/2016 11:20:Esther Toth RN) Med Hx Significant Family Hx: No (08/06/2016 11:20:Esther Toth RN) Details of Med/Surg Hx: hypoglycemic, hashimotos-on synthroid , insulin resistance- on metformin kidney stones varicose veins in left leg pap neg +HRHPV 07/2015 (08/06/2016 11:20:Earlene Hankins RN) INFECTIOUS HISTORY Inf Hx Gonorrhea: No (08/06/2016 11:20:Esther Toth RN) Inf Hx Chlamydia: No (08/06/2016 11:20:Esther Toth RN) Inf Hx Syphilis: No (08/06/2016 11:20:Esther Toth RN) Inf Hx HIV/AIDS: No (08/06/2016 11:20:Esther Toth RN) Inf Hx Human Papilloma Virus: No (08/06/2016 11:20:Esther Toth RN) Inf Hx Pt/Partner Genital Herpes: No (08/06/2016 11:20:Esther Toth RN) Inf Hx Tuberculosis/Exposure: No (08/06/2016 11:20:Esther Toth RN) Inf Hx Hepatitis B,C: No (08/06/2016 11:20:Esther Toth RN) Inf Hx Rash or Viral Illness: No (08/06/2016 11:20:Esther Toth RN) GENETIC HISTORY Gen Hx Age >=35 at [place]: No (08/06/2016 11:20:Esther Toth RN) Gen Hx Thalassemia: No (08/06/2016 11:20:Esther Toth RN) Gen Hx Congenital Heart Defect: No (08/06/2016 11:20:Esther Toth RN) Gen Hx Neural Tube Defect: No (08/06/2016 11:20:Esther Toth RN) Gen Hx Down's Syndrome: No (08/06/2016 11:20:Esther Toth RN) Gen Hx Shayne-Sachs: No (08/06/2016 11:20:Esther Toth RN) Gen Hx Luis Fernando: No (08/06/2016 11:20:Esther Toth RN) Gen Hx Familial Dysautonomia: No (08/06/2016 11:20:Esther Toth RN) Gen Hx Sickle Cell Disease/Trait: No (08/06/2016 11:20:Esther Toth RN) Gen Hx Hemophilia/Blood Disorder: No (08/06/2016 11:20:Esther Toth RN) Gen Hx Muscular Dystrophy: No (08/06/2016 11:20:Esther Toth RN) Gen Hx Cystic Fibrosis: No (08/06/2016 11:20:Esther Toth RN) Gen Hx Huntingtons Chorea: No (08/06/2016 11:20:Esther Toth RN) Gen Hx Mental Retardation/Autism: No (08/06/2016 11:20:Esther Toth RN) Gen Hx Tested for Fragile X: No (08/06/2016 11:20:Esther Toth RN) Gen Hx Other Inher/Chromosomal: No (08/06/2016 11:20:Esther Toth RN) Gen Hx Maternal Metabolic DO: No (08/06/2016 11:20:Esther Toth RN) Gen Hx Pt Father or FOB Defect: No (08/06/2016 11:20:Esther Toth RN) Gen Hx Other Genetic History: No (08/06/2016 11:20:Esther Toth RN) Gen Hx Drugs/Meds since LMP: Yes (08/06/2016 11:20:Earlene Hankins RN) Gen Hx Medications: pnv, metformin, synthroid (08/06/2016 11:20:Earlene Hankins RN)
--- NOTE | 2016-08-10 18:01 | L&D Current Admission ---
Current Admit Datetime Report Generated by CPN: 08/10/2016 18:00 ADMISSION INFORMATION Current Admit Date/Time: 08/08/2016 21:27 (08/08/2016 21:27:Earlene Hankins RN) Reason for Admission: Induction of Labor (08/08/2016 21:27:Earlene Hankins RN) Chief Complaint: Headache; Visual Disturbances (08/08/2016 19:30:Earlene Hankins RN) Medications During : Vitamin; Rantidine (Zantac) (08/08/2016 21:27:Earlene Hankins RN) Meds During -Oth: metformin (08/08/2016 21:27:Earlene Hankins RN) EGA per Dates: 37.0 (08/08/2016 21:27:QS system process) Method of Arrival: Wheelchair (08/08/2016 21:27:Earlene Hankins RN) Admitted From: Home (08/08/2016 21:27:Earlene Hankins RN) Reason for Induction: Chronic Hypertension; Pre-Eclampsia (08/08/2016 21:27:Earlene Hankins RN) Records Available: Yes (08/08/2016 21:27:Earlene Hankins RN) General Admission Information: Reviewed; Updated; Confirmed (08/08/2016 21:27:Earlene Hankins RN) General Admission Reviewed By: Dwaine Hankins RN (08/08/2016 21:27:Earlene Hankins RN) BELONGINGS/ADVANCED DIRECTIVES Other Belongings: See [facility] belongings form (08/08/2016 21:27:Earlene Hankins RN) Disposition of Belongings: Kept with Patient (08/08/2016 21:27:Carli Rivas RN) Advance Direct for Healthcare: No, but Requests Information (08/08/2016 21:27:Earlene Hankins RN) Durable Power of Bus Driver: No (08/08/2016 21:27:Earlene Hankins RN) Living Will: No (08/08/2016 21:27:Carli Rivas RN) Organ Donor: Yes (08/08/2016 21:27:Carli Rivas RN) Pt Rights Information Given: Yes (08/08/2016 21:27:Carli Rivas RN) Pt Understands Pt Rights: Yes (08/08/2016 21:27:Carli Rivas RN) LEARNING ASSESSMENT Knowledge Level: Understands L_D Process; Understands Care Activities; Had Pre-Hospital Education; Understands Diagnosis (08/08/2016 21:27:Carli Rivas RN) Barriers to Learning: None (08/08/2016 21:27:Carli Rivas RN) Learning Readiness: Motivated (08/08/2016 21:27:Carli Rivas RN) Learns Best By: 1 to 1 Instruction (08/08/2016 21:27:Carli Rivas RN) Learning Needs: Labor and Delivery Process; Pain Management; Symptoms to Report; Treatment Plan; Medication; Diagnosis (08/08/2016 21:27:Carli Rivas RN) DOMESTIC VIOLANCE SCREENING Dom Viol Threatened/Hurt: No (08/08/2016 21:27:Carli Rivas RN) Hx of Abuse/Neglect past 2yrs: No (08/08/2016 21:27:Carli Rivas RN) Feel Unsafe Going Home: No (08/08/2016 21:27:Carli Rivas RN) Addt'l Observ Indicating Abuse: No (08/08/2016 21:27:Carli Rivas RN) Reason Unable to Complete Screen: N/A, Screen Completed (08/08/2016 21:27:Carli Rivas RN) Considered Personal Harm/Suicide: No (08/08/2016 21:27:Carli Rivas RN) NUTRITIONAL/FUNCTIONAL SCREENING Problem with Appetite >5 Days: No (08/08/2016 21:27:Carli Rivas RN) Chew/Swallow Difficulties: No (08/08/2016 21:27:Carli Rivas RN) Inappropriate Wt Gain/Loss: No (08/08/2016 21:27:Carli Rivas RN) Presence Skin Breakdown/Ulcer: No (08/08/2016 21:27:Carli Rivas RN) Special Diet: No (08/08/2016 21:27:Carli Rivas RN) Pt Requests It Compliance Manager Visit: No (08/08/2016 21:27:Carli Rivas RN) Hx of Any of the Following?: N/A (08/08/2016 21:27:Carli Rivas RN) New Diagnosis of: N/A (08/08/2016 21:27:Carli Rivas RN) Requires Assist w/Ambulation: No (08/08/2016 21:27:Carli Rivas RN) Uses Assist Device to Ambulate: No (08/08/2016 21:27:Carli Rivas RN) Pt Requires Help w/ADL's: No (08/08/2016 21:27:Carli Rivas RN)
--- NOTE | 2016-08-10 18:16 | L&D Care Plan ---
LD CARE PLANS Datetime Report Generated by CPMer: 08/10/2016 18:15 Datetime: 08/08/2016 21:24 State: Risk For (Carli Rivas RN) Related To: Labor and Delivery Process; Treatment and Procedures (Carli Rivas RN) Goal(s): Patients Pain will be Assessed and Managed; Patient will Verbalize Adequate Relief of Pain or the Ability to [place] with Current Pain (Carli Rivas RN) Interventions: Assess Pain Severity on Scale of 0 (None) to 5 (Severe); Assess Type, Location and Intensity of Pain Each Time Client Reports Discomfort and Notify Provider if Unusal Pain Develops; Encourage Proper Breathing and Relaxation Techniques; Offer Alternatives Such as Repositioning, Calm Environment, Massages, Diversional Activities, Ice Pack, Splinting, and Ambulation; Administer Analgesics as Ordered; Assist with Epidural Placement as Appropriate; Evaluate Therapeutic Effectiveness of Medication and Treatments (Carli Rivas RN) Outcome: Patient will Report Absence or Relief of Pain Consistent with Established Pain Goal (Carli Rivas RN) Status: Ongoing (Carli Rivas RN) Outcome: Patient will have a Decrease in Signs and Symptoms of Discomfort (Carli Rivas RN) Status: Ongoing (Carli Rivas RN) Outcome: Pain will be Controlled During Procedures (Carli Rivas RN) Status: Ongoing (Carli Rivas RN) State: Not Applicable (Carli Rivas RN) State: Not Applicable (Carli Rivas RN) State: Risk For (Carli Rivas RN) Related To: Invasive Procedures (Carli Rivas RN) Goal(s): The Patient will be Free of Infection, Vital Signs Stable and Lab Work within Normal Parameters (Carli Rivas RN) Interventions: Instruct and Reinforce Proper Handwashing, Hygiene, and Care Techniques to Patient and Family; Monitor Vital Signs; Monitor Patient for the Following Signs of Infection: Fever, Abdominal Tenderness, Unusual Discharge; Monitor Aminiotic Fluid, Urine and Lochia for Color and Odor; Observe Wounds, Incisions and Invasive Line Sites for Redness, Drainage and Edema; Assess IV Sites per Hospital Policy; Monitor Lab and Test Results and Notify Provider of Abnormal Findings; Assess Nutritional Status and Promote Good Nutrition (Carli Rivas RN) Outcome: Patient will Remain Free of Infection (Carli Rivas RN) Status: Ongoing (Carli Rivas RN) Outcome: Infection will be Recognized Early to Allow for Prompt Treatment (Carli Rivas RN) Status: Ongoing (Carli Rivas RN) Outcome: Patient will have Vital Signs Within Expected Range (Carli Rivas RN) Status: Ongoing (Carli Rivas RN) State: Risk For (Carli Rivas RN) Related To: Gestational Hypertension; Disease Process (Carli Rivas RN) Goal(s): Patient will Achieve and Maintain a Balanced Fluid Volume Status; Hemodynamically Stable (Carli Rivas RN) Interventions: Monitor Vital Signs; Auscultate Breath Sounds; Monitor Patient for Skin Turgor, Mucous Membranes, Dry Skin, Weakness, Headaches and Confusion; Provide Oral Fluids as Ordered; Initiate and Maintain Intravenous Fluids as Ordered; Monitor Intake and Output as Indicated Per Patient Status; Accurately Measure Blood Loss; Monitor Lab and Test Results as Obtained and Notify Provider of Abnormal Findings; Monitor Patient's Weight (Carli Rivas RN) Outcome: Patient will have Clear Lung Sounds (Carli Rivas RN) Status: Ongoing (Carli Rivas RN) Outcome: Patient will have Vital Signs within Expected Range (Carli Rivas RN) Status: Ongoing (Carli Rivas RN) Outcome: Urine Output will be within Expected Range (Carli Rivas RN) Status: Ongoing (Carli Rivas RN) Outcome: Patient will have Minimal Generalized or Upper Extremity Edema (Carli Rivas RN) Status: Ongoing (Carli Rivas RN) State: Risk For (Carli Rivas RN) Related To: Gestational Hypertension or Eclampsia (Carli Rivas RN) Goal(s): Patient will Remain Free from Injury (Carli Rivas RN) Interventions: Monitoring as per Hospital Protocol; Assess Neurological Status; Perform Risk Assessment of Patients with Induction and ; Perform Fall Risk Assessment and Prevention per Hospital Protocol; Perform DVT Risk Assessment and Prophylaxis per Hospital Protocol; Ensure that Oxygen, Suction, and Resuscitation Medications and Equipment are Readily Available; Confirm Patient ID Prior to Procedure(s) and Medication Administration per Hospital Policy (Carli Rivas RN) Outcome: Successful Fall Risk Prevention (Carli Rivas RN) Status: Ongoing (Carli Rivas RN) Outcome: Patient will Deliver without Adverse Sequela (Carli Rivas RN) Status: Ongoing (Carli Rivas RN) Outcome: Patient's Neurological Status will Remain Stable (Carli Rivas RN) Status: Ongoing (Carli Rivas RN) State: Risk For (Carli Rivas RN) Related To: Vaginal Delivery (Carli Rivas RN) Goal(s): Patient will Maintain Optimal Skin Integrity, Free of Breakdown, Injury or Infection (Carli Rivas RN) Interventions: Complete Screening for Pressure Ulcer Risk and Initiate Protocol per Hospital Policy; Monitor Site of Skin Impairment for Color Changes, Redness, Swelling, Warmth, Pain or Other Signs of Infection; Encourage and Assist with Position Changes; Monitor Patient's Mobility Status; Provide Adequate Nutrition and Fluids; Teach Patient Appropriate Hygienic Care; Teach Patient/Family Skin Care Management (Carli Rivas RN) Outcome: Patient will not have Evidence of Injury Such as Skin Breakdown, Scrapes, Cuts, or Bruising (Carli Rivas RN) Status: Ongoing (Carli Rivas RN) Outcome: Patient will Report Any Altered Sensation or Pain at Site of Skin Impairment (Carli Rivas RN) Status: Ongoing (Carli Rivas RN) Outcome: Patients Incisions and Wounds will be without Signs or Symptoms of Infection (Carli Rivas RN) Status: Ongoing (Carli Rivas RN) Outcome: Patient will Demonstrate Understanding of Plan to Heal Skin and Prevent Reinjury and Verbalize Risk Factors (Carli Rivas RN) Status: Ongoing (Carli Rivas RN) State: Not Applicable (Carli Rivas RN) State: Not Applicable (Carli Rivas RN) State: Not Applicable (Carli Rivas RN) Datetime: 08/08/2016 21:22 State: Risk For (Carli Rivas RN) Related To: Labor and Delivery Process; Treatment and Procedures (Carli Rivas RN) Goal(s): Patients Pain will be Assessed and Managed; Patient will Verbalize Adequate Relief of Pain or the Ability to [place] with Current Pain (Carli Rivas RN) Interventions: Assess Pain Severity on Scale of 0 (None) to 5 (Severe); Assess Type, Location and Intensity of Pain Each Time Client Reports Discomfort and Notify Provider if Unusal Pain Develops; Encourage Proper Breathing and Relaxation Techniques; Offer Alternatives Such as Repositioning, Calm Environment, Massages, Diversional Activities, Ice Pack, Splinting, and Ambulation; Administer Analgesics as Ordered; Assist with Epidural Placement as Appropriate; Evaluate Therapeutic Effectiveness of Medication and Treatments (Carli Rivas RN) Outcome: Patient will Report Absence or Relief of Pain Consistent with Established Pain Goal (Carli Rivas RN) Status: Ongoing (Carli Rivas RN) Outcome: Patient will have a Decrease in Signs and Symptoms of Discomfort (Carli Rivas RN) Status: Ongoing (Carli Rivas RN) Outcome: Pain will be Controlled During Procedures (Carli Rivas RN) Status: Ongoing (Carli Rivas RN) State: Not Applicable (Carli Rivas RN) State: Not Applicable (Carli Rivas RN) State: Risk For (Carli Rivas RN) Related To: Invasive Procedures (Carli Rivas RN) Goal(s): The Patient will be Free of Infection, Vital Signs Stable and Lab Work within Normal Parameters (Carli Rivas RN) Interventions: Instruct and Reinforce Proper Handwashing, Hygiene, and Care Techniques to Patient and Family; Monitor Vital Signs; Monitor Patient for the Following Signs of Infection: Fever, Abdominal Tenderness, Unusual Discharge; Monitor Aminiotic Fluid, Urine and Lochia for Color and Odor; Observe Wounds, Incisions and Invasive Line Sites for Redness, Drainage and Edema; Assess IV Sites per Hospital Policy; Monitor Lab and Test Results and Notify Provider of Abnormal Findings; Assess Nutritional Status and Promote Good Nutrition (Carli Rivas RN) Outcome: Patient will Remain Free of Infection (Carli Rivas RN) Status: Ongoing (Carli Rivas RN) Outcome: Infection will be Recognized Early to Allow for Prompt Treatment (Carli Rivas RN) Status: Ongoing (Carli Rivas RN) Outcome: Patient will have Vital Signs Within Expected Range (Carli Rivas RN) Status: Ongoing (Carli Rivas RN) State: Risk For (Carli Rivas RN) Related To: Gestational Hypertension; Disease Process (Carli Rivas RN) Goal(s): Patient will Achieve and Maintain a Balanced Fluid Volume Status; Hemodynamically Stable (Carli Rivas RN) Interventions: Monitor Vital Signs; Auscultate Breath Sounds; Monitor Patient for Skin Turgor, Mucous Membranes, Dry Skin, Weakness, Headaches and Confusion; Provide Oral Fluids as Ordered; Initiate and Maintain Intravenous Fluids as Ordered; Monitor Intake and Output as Indicated Per Patient Status; Accurately Measure Blood Loss; Monitor Lab and Test Results as Obtained and Notify Provider of Abnormal Findings; Monitor Patient's Weight (Carli Rivas RN) Outcome: Patient will have Clear Lung Sounds (Carli Rivas RN) Status: Ongoing (Carli Rivas RN) Outcome: Patient will have Vital Signs within Expected Range (Carli Rivas RN) Status: Ongoing (Carli Rivas RN) Outcome: Urine Output will be within Expected Range (Carli Rivas RN) Status: Ongoing (Carli Rivas RN) Outcome: Patient will have Minimal Generalized or Upper Extremity Edema (Carli Rivas RN) Status: Ongoing (Carli Rivas RN) State: Risk For (Carli Rivas RN) Related To: Gestational Hypertension or Eclampsia (Carli Rivas RN) Goal(s): Patient will Remain Free from Injury (Carli Rivas RN) Interventions: Monitoring as per Hospital Protocol; Assess Neurological Status; Perform Risk Assessment of Patients with Induction and ; Perform Fall Risk Assessment and Prevention per Hospital Protocol; Perform DVT Risk Assessment and Prophylaxis per Hospital Protocol; Ensure that Oxygen, Suction, and Resuscitation Medications and Equipment are Readily Available; Confirm Patient ID Prior to Procedure(s) and Medication Administration per Hospital Policy (Carli Rivas RN) Outcome: Successful Fall Risk Prevention (Carli Rivas RN) Status: Ongoing (Carli Rivas RN) Outcome: Patient will Deliver Infant without Adverse Sequela (Carli Rivas RN) Status: Ongoing (Carli Rivas RN) Outcome: Patient's Neurological Status will Remain Stable (Carli Rivas RN) Status: Ongoing (Carli Rivas RN) State: Risk For (Carli Rivas RN) Related To: Vaginal Delivery (Carli Rivas RN) Goal(s): Patient will Maintain Optimal Skin Integrity, Free of Breakdown, Injury or Infection (Carli Rivas RN) Interventions: Complete Screening for Pressure Ulcer Risk and Initiate Protocol per Hospital Policy; Monitor Site of Skin Impairment for Color Changes, Redness, Swelling, Warmth, Pain or Other Signs of Infection; Encourage and Assist with Position Changes; Monitor Patient's Mobility Status; Provide Adequate Nutrition and Fluids; Teach Patient Appropriate Hygienic Care; Teach Patient/Family Skin Care Management (Carli Rivas RN) Outcome: Patient will not have Evidence of Injury Such as Skin Breakdown, Scrapes, Cuts, or Bruising (Carli Rivas RN) Status: Ongoing (Carli Rivas RN) Outcome: Patient will Report Any Altered Sensation or Pain at Site of Skin Impairment (Carli Rivas RN) Status: Ongoing (Carli Rivas RN) Outcome: Patients Incisions and Wounds will be without Signs or Symptoms of Infection (Carli Rivas RN) Status: Ongoing (Carli Rivas RN) Outcome: Patient will Demonstrate Understanding of Plan to Heal Skin and Prevent Reinjury and Verbalize Risk Factors (Carli Rivas RN) Status: Ongoing (Carli Rivas RN) State: Not Applicable (Carli Rivas RN) State: Not Applicable (Carli Rivas RN) State: Not Applicable (Carli Rivas RN)
[2016-08-11] MEDS: IBUPROFEN 800 MG TABLET PO SCH (05:49)
--- NOTE | 2016-08-11 06:00 | L&D Current Admission ---
Current Admit Datetime Report Generated by CPN: 08/11/2016 06:00 ADMISSION INFORMATION Current Admit Date/Time: 08/08/2016 21:27 (08/08/2016 21:27:Earlene Hankins RN) Reason for Admission: Induction of Labor (08/08/2016 21:27:Earlene Hankins RN) Chief Complaint: Headache; Visual Disturbances (08/08/2016 19:30:Earlene Hankins RN) Medications During : Vitamin; Rantidine (Zantac) (08/08/2016 21:27:Earlene Hankins RN) Meds During -Oth: metformin (08/08/2016 21:27:Earlene Hankins RN) EGA per Dates: 37.0 (08/08/2016 21:27:QS system process) Method of Arrival: Wheelchair (08/08/2016 21:27:Earlene Hankins RN) Admitted From: Home (08/08/2016 21:27:Earlene Hankins RN) Reason for Induction: Chronic Hypertension; Pre-Eclampsia (08/08/2016 21:27:Earlene Hankins RN) Records Available: Yes (08/08/2016 21:27:Earlene Hankins RN) General Admission Information: Reviewed; Updated; Confirmed (08/08/2016 21:27:Earlene Hankins RN) General Admission Reviewed By: Dwaine Hankins RN (08/08/2016 21:27:Earlene Hankins RN) BELONGINGS/ADVANCED DIRECTIVES Other Belongings: See [facility] belongings form (08/08/2016 21:27:Earlene Hankins RN) Disposition of Belongings: Kept with Patient (08/08/2016 21:27:Carli Rivas RN) Advance Direct for Healthcare: No, but Requests Information (08/08/2016 21:27:Earlene Hankins RN) Durable Power of Programming Development Project Manager: No (08/08/2016 21:27:Earlene Hankins RN) Living Will: No (08/08/2016 21:27:Carli Rivas RN) Organ Donor: Yes (08/08/2016 21:27:Carli Rivas RN) Pt Rights Information Given: Yes (08/08/2016 21:27:Carli Rivas RN) Pt Understands Pt Rights: Yes (08/08/2016 21:27:Carli Rivas RN) LEARNING ASSESSMENT Knowledge Level: Understands L_D Process; Understands Care Activities; Had Pre-Hospital Education; Understands Diagnosis (08/08/2016 21:27:Carli Rivas RN) Barriers to Learning: None (08/08/2016 21:27:Carli Rivas RN) Learning Readiness: Motivated (08/08/2016 21:27:Carli Rivas RN) Learns Best By: 1 to 1 Instruction (08/08/2016 21:27:Carli Rivas RN) Learning Needs: Labor and Delivery Process; Pain Management; Symptoms to Report; Treatment Plan; Medication; Diagnosis (08/08/2016 21:27:Carli Rivas RN) DOMESTIC VIOLANCE SCREENING Dom Viol Threatened/Hurt: No (08/08/2016 21:27:Carli Rivas RN) Hx of Abuse/Neglect past 2yrs: No (08/08/2016 21:27:Carli Rivas RN) Feel Unsafe Going Home: No (08/08/2016 21:27:Carli Rivas RN) Addt'l Observ Indicating Abuse: No (08/08/2016 21:27:Carli Rivas RN) Reason Unable to Complete Screen: N/A, Screen Completed (08/08/2016 21:27:Carli Rivas RN) Considered Personal Harm/Suicide: No (08/08/2016 21:27:Carli Rivas RN) NUTRITIONAL/FUNCTIONAL SCREENING Problem with Appetite >5 Days: No (08/08/2016 21:27:Carli Rivas RN) Chew/Swallow Difficulties: No (08/08/2016 21:27:Carli Rivas RN) Inappropriate Wt Gain/Loss: No (08/08/2016 21:27:Carli Rivas RN) Presence Skin Breakdown/Ulcer: No (08/08/2016 21:27:Carli Rivas RN) Special Diet: No (08/08/2016 21:27:Carli Rivas RN) Pt Requests Class A Lineman Visit: No (08/08/2016 21:27:Carli Rivas RN) Hx of Any of the Following?: N/A (08/08/2016 21:27:Carli Rivas RN) New Diagnosis of: N/A (08/08/2016 21:27:Carli Rivas RN) Requires Assist w/Ambulation: No (08/08/2016 21:27:Carli Rivas RN) Uses Assist Device to Ambulate: No (08/08/2016 21:27:Carli Rivas RN) Pt Requires Help w/ADL's: No (08/08/2016 21:27:Carli Rivas RN)
--- NOTE | 2016-08-11 06:00 | L&D General Admission ---
General Admit Datetime Report Generated by CPN: 08/11/2016 06:00 INFORMATION Patient Age: 35 (08/08/2015 22:39:QS system process) EDC: 08/29/2016 00:00 (08/06/2016 11:20:Keya New RN) : 4 (08/06/2016 11:20:Esther Toth RN) Para: 3 (08/06/2016 11:20:Esther Toth RN) Term: 3 (08/06/2016 11:20:Esther Toth RN) : 0 (08/06/2016 11:20:Esther Toth RN) Spontaneous Abortions: 0 (08/06/2016 11:20:Esther Toth RN) Induced Abortions: 0 (08/06/2016 11:20:Esther Toth RN) Livin (08/06/2016 11:20:Esther Toth RN) Cesareans: 0 (08/06/2016 11:20:Esther Toth RN) VBACs: 0 (08/06/2016 11:20:Esther Toth RN) Ectopic: 0 (08/06/2016 11:20:Esther Toth RN) Multiple Births: 0 (08/06/2016 11:20:Esther Toth RN) Baby, Number in Womb: 1 (08/06/2016 11:20:Esther Toth RN) CARE Primary Honing Machine Operator Production: [facility] (08/06/2016 11:20:Esther Toth RN) Adequate Care: Yes (08/06/2016 11:20:Esther Toth RN) Height (in): 65 (08/08/2015 22:39:QS system process) ALLERGIES Medication Allergy: Yes (08/06/2016 11:20:Earlene Hankins RN) Medication Allergies: Sulfa (Sulfonamide Antibiotics)/MO/Hives (04/27/2016) (08/06/2016 10:58:QS system process) Latex Allergy: No Latex Allergies (08/06/2016 11:20:Earlene Hankins RN) COMMUNICATION Primary Language: Swedish (08/06/2016 11:20:Esther Toth RN) Medical Tx Preferred Language: Swedish (08/06/2016 11:20:Esther Toth RN) DEMOGRAPHICS Address: [address] [place], [place] [address] [address] (08/08/2015 22:39:QS system process) Zipcode: [address] (08/08/2015 22:39:QS system process) Home (08/06/2016 10:58:QS system process) SSN: [id number] (08/08/2015 22:39:QS system process) Next of Kin Name: NANCI BAKER (08/08/2015 22:39:QS system process) Next of Kin (08/06/2016 10:58:QS system process) Next of Kin Relationship: SPO (08/08/2015 22:39:QS system process) Date of : 1980 (08/08/2015 22:39:QS system process) Marital Status: (08/08/2015 22:39:QS system process) Sex: Female (08/08/2015 22:39:QS system process) Race: (08/08/2015 22:39:QS system process) Ethnicity: Non- or (08/08/2015 22:39:QS system process) Religious: Mandaeism (08/08/2015 22:39:QS system process) DRUG AND ALCOHOL USE Alcohol: No (08/06/2016 11:20:Esther Toth RN) Cigarettes: Former Smoker. [id number] (08/06/2016 11:20:Esther Toth RN) Marijuana: No (08/06/2016 11:20:Esther Toth RN) Cocaine: No (08/06/2016 11:20:Esther Toth RN) Other Illicit Drugs: No (08/06/2016 11:20:Esther Toth RN) VACCINE HISTORY Influenza Vaccine: No (08/06/2016 11:20:Earlene Hankins RN) Pneumococcal Vaccine: No (08/06/2016 11:20:Earlene Hankins RN) Tetanus Vaccine: Yes (08/06/2016 11:20:Earlene Hankins RN) Tdap Vaccine: Yes (08/06/2016 11:20:Earlene Hankins RN) Hepatitis B Vaccine: Yes (08/06/2016 11:20:Earlene Hankins RN) Embossed Or Impressed Lettering Painter: [facility] (08/06/2016 11:20:Earlene Hankins RN) Feeding Preference: Breast (08/06/2016 11:20:Earlene Hankins RN) Benefit of Breast Feed Discussed: Yes (08/06/2016 11:20:Earlene Hankins RN) Circumcision: N/A (08/06/2016 11:20:Earlene Hankins RN) Classes Attended: No (08/06/2016 11:20:Earlene Hankins RN) Tubal Ligation: No (08/06/2016 11:20:Earlene Hankins RN) Tubal Authorization Signed: N/A (08/06/2016 11:20:Earlene Hankins RN) Consent: N/A (08/06/2016 11:20:Earlene Hankins RN) Consent Signed: N/A (08/06/2016 11:20:Earlene Hankins RN) Pain Management Plans: Epidural (08/06/2016 11:20:Earlene Hankins RN) Plans for Labor and Delivery: None (08/06/2016 11:20:Earlene Hankins RN) Support Person: Abraham Baker (08/06/2016 11:20:Earlene Hankins RN) Support Person Relationship: (08/06/2016 11:20:Earlene Hankins RN) Cultural/Spritual Practice: No (08/06/2016 11:20:Earlene Hankins RN) Spir/Cult Dietary Needs: No (08/06/2016 11:20:Earlene Hankins RN) LIVING SITUATION/DISCHARGE PLAN Living Arrangements: House (08/06/2016 11:20:Earlene Hankins RN) Adequate Access to:: Electric; Heat; Refrigeration; Plumbing/Running water; Phone; Transportation (08/06/2016 11:20:Earlene Hankins RN) WIC Program: Yes (08/06/2016 11:20:Earlene Hankins RN) Discharge Revenue Agent Person: Abraham Baker (08/06/2016 11:20:Earlene Hankins RN) Person to Help after Discharge: Abraham Baker (08/06/2016 11:20:Earlene Hankins RN) Currently Using Commun Resources: Yes (08/06/2016 11:20:Earlene Hankins RN) Specify Current Resource Used: medicaid (08/06/2016 11:20:Earlene Hankins RN) Car Seat for Discharge: Yes (08/06/2016 11:20:Earlene Hankins RN) Adoption Requested: No (08/06/2016 11:20:Earlene Hankins RN) Pt Contact w/ Post : N/A (08/06/2016 11:20:Earlene Hankins RN) LABS Blood Type: A Positive (08/06/2016 11:20:Earlene Hankins RN) Antibody Screen: negative (08/06/2016 11:20:Earlene Hankins RN) Rho(G) this : Not Applicable (08/06/2016 11:20:Keya New RN) Hemoglobin: 9.4 L (08/10/2016 07:34:QS system process) Hematocrit: 28.5 L (08/10/2016 07:34:QS system process) MCV: 77 L (08/10/2016 07:34:QS system process) Group Beta Strep: Positive (08/06/2016 11:20:Keya New RN) Gonorrhea: Negative (08/06/2016 11:20:Earlene Hankins RN) Chlamydia: Negative (08/06/2016 11:20:Earlene Hankins RN) RPR/VDRL: Nonreactive (08/06/2016 11:20:Earlene Hankins RN) HIV Results: Negative (08/06/2016 11:20:Keya New RN) Hepatitis B: Negative (08/06/2016 11:20:Earlene Hankins RN) Rubella: Immune (08/06/2016 11:20:Earlene Hankins RN) OB/PREVIOUS HISTORY Previous Procedures: Ultrasound; NST (08/06/2016 11:20:Earlene Hankins RN) Current Procedures: Ultrasound; NST (08/06/2016 11:20:Earlene Hankins RN) History of Previous : No (08/06/2016 11:20:Esther Toth RN) History of Gestational Diabetes: No (08/06/2016 11:20:Esther Toth RN) History of PIH: Yes (08/06/2016 11:20:Esther Toth RN) History of Incompetent Cervix: No (08/06/2016 11:20:Esther Toth RN) History of Placenta Previa/Abrup: No (08/06/2016 11:20:Esther Toth RN) History of Macrosomia: Yes (08/06/2016 11:20:Earlene Hankins RN) History of IUGR: No (08/06/2016 11:20:Esther Toth RN) History of Hemorrhage: No (08/06/2016 11:20:Esther Toth RN) History of Loss/Stillborn: No (08/06/2016 11:20:Esther Toth RN) History of : No (08/06/2016 11:20:Esther Toth RN) History of D (Rh) Sensitization: No (08/06/2016 11:20:Esther Toth RN) History Recurrent Loss/Stillborn: No (08/06/2016 11:20:Esther Toth RN) History Depression/PP Depression: No (08/06/2016 11:20:Esther Toth RN) History of Uterine Anomaly/SMOOTH: No (08/06/2016 11:20:Esther Toth RN) History of Infertility: No (08/06/2016 11:20:Esther Toth RN) History of ART Treatment: No (08/06/2016 11:20:Esther Toth RN) History of SMOOTH: No (08/06/2016 11:20:Esther Toth RN) Comments Obstetrical History: G1: 2007 39 wk G2: 2010 39 wk, htn G3: 2012 38.6 wk G4: current, chtn/ pre-e, on metformin for insulin resistance; betty's on synthroid (08/06/2016 11:20:Earlene Hankins RN) MEDICAL HISTORY Med Hx Diabetes: No (08/06/2016 11:20:Esther Toth RN) Med Hx Hypertension: Yes (08/06/2016 11:20:Earlene Hankins RN) Med Hx Heart Disease: No (08/06/2016 11:20:Esther Toth RN) Med Hx Autoimmune Disorder: No (08/06/2016 11:20:Esther Toth RN) Med Hx Kidney Disease/UTI: Yes (08/06/2016 11:20:Earlene Hankins RN) Med Hx Neurologic/Epilepsy: No (08/06/2016 11:20:Esther Toth RN) Med Hx Psychiatric Disorders: No (08/06/2016 11:20:Esther Toth RN) Med Hx Hepatitis/Liver Disease: No (08/06/2016 11:20:Esther Toth RN) Med Hx Varicosities/Phlebitis: Yes (08/06/2016 11:20:Earlene Hankins RN) Med Hx Thyroid Dysfunction: Yes (08/06/2016 11:20:Esther Toth RN) Med Hx Trauma/Violence: No (08/06/2016 11:20:Esther Toth RN) Med Hx Blood Transfusion: No (08/06/2016 11:20:Esther Toth RN) Med Hx Pulmonary (Asthma,TB): No (08/06/2016 11:20:Esther Toth RN) Med Hx Breast: No (08/06/2016 11:20:Esther Toth RN) Med Hx MANAGER VISUAL Surgery: No (08/06/2016 11:20:Esther Toth RN) Med Hx Hospitalization/Surgery: Yes (08/06/2016 11:20:Earlene Hankins RN) Med Hx Anesthetic Complications: No (08/06/2016 11:20:Esther Toth RN) Med Hx Abnormal Pap Smear: Yes (08/06/2016 11:20:Earlene Hankins RN) Other Medical Diseases: No (08/06/2016 11:20:Esther Toth RN) Med Hx Significant Family Hx: No (08/06/2016 11:20:Esther Toth RN) Details of Med/Surg Hx: hypoglycemic, hashimotos-on synthroid , insulin resistance- on metformin kidney stones varicose veins in left leg pap neg +HRHPV 07/2015 (08/06/2016 11:20:Earlene Hankins RN) INFECTIOUS HISTORY Inf Hx Gonorrhea: No (08/06/2016 11:20:Esther Toth RN) Inf Hx Chlamydia: No (08/06/2016 11:20:Esther Toth RN) Inf Hx Syphilis: No (08/06/2016 11:20:Esther Toth RN) Inf Hx HIV/AIDS: No (08/06/2016 11:20:Esther Toth RN) Inf Hx Human Papilloma Virus: No (08/06/2016 11:20:Esther Toth RN) Inf Hx Pt/Partner Genital Herpes: No (08/06/2016 11:20:Esther Toth RN) Inf Hx Tuberculosis/Exposure: No (08/06/2016 11:20:Esther Toth RN) Inf Hx Hepatitis B,C: No (08/06/2016 11:20:Esther Toth RN) Inf Hx Rash or Viral Illness: No (08/06/2016 11:20:Esther Toth RN) GENETIC HISTORY Gen Hx Age >=35 at [place]: No (08/06/2016 11:20:Esther Toth RN) Gen Hx Thalassemia: No (08/06/2016 11:20:Esther Toth RN) Gen Hx Congenital Heart Defect: No (08/06/2016 11:20:Esther Toth RN) Gen Hx Neural Tube Defect: No (08/06/2016 11:20:Esther Toth RN) Gen Hx Down's Syndrome: No (08/06/2016 11:20:Esther Toth RN) Gen Hx Shayne-Sachs: No (08/06/2016 11:20:Esther Toth RN) Gen Hx Luis Fernando: No (08/06/2016 11:20:Esther Toth RN) Gen Hx Familial Dysautonomia: No (08/06/2016 11:20:Esther Toth RN) Gen Hx Sickle Cell Disease/Trait: No (08/06/2016 11:20:Esther Toth RN) Gen Hx Hemophilia/Blood Disorder: No (08/06/2016 11:20:Esther Toth RN) Gen Hx Muscular Dystrophy: No (08/06/2016 11:20:Esther Toth RN) Gen Hx Cystic Fibrosis: No (08/06/2016 11:20:Esther Toth RN) Gen Hx Huntingtons Chorea: No (08/06/2016 11:20:Esther Toth RN) Gen Hx Mental Retardation/Autism: No (08/06/2016 11:20:Esther Toth RN) Gen Hx Tested for Fragile X: No (08/06/2016 11:20:Esther Toth RN) Gen Hx Other Inher/Chromosomal: No (08/06/2016 11:20:Esther Toth RN) Gen Hx Maternal Metabolic DO: No (08/06/2016 11:20:Esther Toth RN) Gen Hx Pt Father or FOB Defect: No (08/06/2016 11:20:Esther Toth RN) Gen Hx Other Genetic History: No (08/06/2016 11:20:Esther Toth RN) Gen Hx Drugs/Meds since LMP: Yes (08/06/2016 11:20:Earlene Hankins RN) Gen Hx Medications: pnv, metformin, synthroid (08/06/2016 11:20:Earlene Hankins RN)
[2016-08-11] MEDS: DOCUSATE SODIUM 100 MG CAPSULE PO SCH (09:24)
[2016-08-11] MEDS: LEVOTHYROXINE SODIUM 0.075 MG TABLET PO SCH (09:24)
[2016-08-11] MEDS: FAMOTIDINE 20 MG TABLET PO SCH (09:24)
[2016-08-11] MEDS: FERROUS SULFATE 325 MG TABLET PO SCH (09:24)
[2016-08-11] MEDS: PRENATAL VITAMIN W-O CA NO5/FE FUMARATE/FA CAPSULE PO SCH (09:24)
--- NOTE | 2016-08-11 10:15 | PDOC DISCHARGE SUMMARY ---
Final Diagnosis Discharge Date: 08/11/16 - Final Diagnosis (1) Delivery normal Is this a current diagnosis for this admission?: Yes Discharge Data - Discharge Medication Home Medications: Pnv W-O Ca No5/Fe Fumarate/FA [-U Capsule] 1 cap PO DAILY 02/20/13 Levothyroxine Sodium [Synthroid 0.075 mg Tablet] 75 mcg PO [id number] 08/09/16 Metformin HCl [Metformin HCl ER] 500 mg PO BID 08/09/16 Reason(s) for Admission: Induction of Labor, Obstetric Complications Procedures: NST Intrapartum Procedure(s): Spontaneous Vaginal Delivery - Diagnosis Test Laboratory: Temp Pulse Resp BP Pulse Ox 97.4 F 70 20 130/66 H 100 08/11/16 07:36 08/11/16 07:36 08/11/16 07:36 08/11/16 07:36 08/11/16 07:36 08/08/16 08/08/16 08/09/16 19:25 20:00 16:00 RBC 3.87 4.03 Hgb 10.1 L 10.5 L Hct 30.3 L 31.2 L Urine Opiates Screen NEGATIVE 08/10/16 07:34 RBC 3.70 L Hgb 9.4 L Hct 28.5 L Urine Opiates Screen - Discharge information/Instructions Discharge Activity: Balance Activity w/Rest, Pelvic Rest Discharge Diet: Regular Disposition: HOME, SELF-CARE Follow up with: [facility] in: 4, Weeks
[2016-08-11 10:30] VITALS: BP 136/71
[2016-08-11] MEDS: SENNOSIDES/DOCUSATE 8.6-50 MG 1 EACH TABLET PO SCH (12:02)
== END 2016-08-11 12:23 | disposition home or self-care (01) | DRG 775 ==
LOC: LC 19:05 → LR 21:17 → UNDOADMIN 21:17 → LR 21:53 → 2S 08-09 21:30
PROVIDERS: ADMIT Obstetrics & Gynecology; ATTEND Obstetrics & Gynecology
PROC: 10E0XZZ Delivery of Products of Conception, External Approach (ICD-10-PCS; principal; 2016-08-09)
PROC: 3E0P7GC Introduction of Other Therapeutic Substance into Female Reproductive, Via Natural or Artificial Opening (ICD-10-PCS; 2016-08-09)
DX: O13.4 Gestational [pregnancy-induced] hypertension without significant proteinuria, complicating childbirth (principal); O99.824 Streptococcus B carrier state complicating childbirth; O14.94 Unspecified pre-eclampsia, complicating childbirth; O36.63X0 Maternal care for excessive fetal growth, third trimester, not applicable or unspecified; O75.89 Other specified complications of labor and delivery; E06.3 Autoimmune thyroiditis; O69.81X0 Labor and delivery complicated by cord around neck, without compression, not applicable or unspecified; O09.523 Supervision of elderly multigravida, third trimester; Z3A.37 37 weeks gestation of pregnancy; Z37.0 Single live birth
CPT/HCPCS: 36415; 80053; 80307; 81001; 82962; 83615; 84550; 85025; 85027; 86592; 86850; 86900; 86901; 94760; C1726; J2405; J2540; J2590; J3490

== ENCOUNTER 2016-10-10 06:30 | Day surgery (SDC) | payer BC, MEDICAID ==
[2016-10-04 12:11] LABS: APPEARANCE,URINE CLEAR; BILIRUBIN,URINE NEGATIVE (NEGATIVE); GLUCOSE, URINE NEGATIVE (NEGATIVE); KETONES,URINE NEGATIVE (NEGATIVE); LEUKOCYTE ESTERASE,URINE NEGATIVE (NEGATIVE); NITRITE,URINE NEGATIVE (NEGATIVE); PROTEIN,URINE NEGATIVE (NEGATIVE); URINE SPECIFIC GRAVITY 1.012; UROBILINOGEN,URINE NEGATIVE mg/dL (<2.0)
[2016-10-04 12:14] LABS: HEMATOCRIT 40.9 % (36.0-47.0); HEMOGLOBIN 13.7 g/dL (12.0-15.5); HGB HCT DIFFERENCE 0.2; MEAN CORPUSCULAR HEMOGLOBIN 26.4 pg (27.0-33.4); MEAN CORPUSCULAR HGB CONC 33.5 g/dL (32.0-36.0); MEAN CORPUSCULAR VOLUME 79 fl (80-97); RED BLOOD COUNT 5.19 10^6/uL (3.72-5.28); RED CELL DISTRIBUTION WIDTH 18.3 % (11.5-14.0); WHITE BLOOD COUNT 7.3 10^3/uL (4.0-10.5)
[~2016-10-10 06:30] MED LIST: RINGERS SOLUTION,LACTATED 1,000 ML IV PRN
[2016-10-10] MEDS ORDERED: MIDAZOLAM 2 MG/2 ML INJ ONE (08:33)
[2016-10-10] MEDS ORDERED: FENTANYL CITRATE INJ/PF 250 MCG/5 ML AMPULE ONE (08:33)
[2016-10-10] MEDS ORDERED: PROPOFOL INJ 200 MG/20 ML VIAL IV ONE (08:34)
[2016-10-10] MEDS ORDERED: ACETAMINOPHEN 100 ML IV ONE (08:34)
[2016-10-10] MEDS ORDERED: MORPHINE SULFATE 10 MG/ML INJ IV PRN (09:08)
[2016-10-10] MEDS ORDERED: DIPHENHYDRAMINE HCL 50 MG/ML VIAL IV PRN (09:08)
[2016-10-10] MEDS ORDERED: OXYCODONE-ACETAMINOPHEN 5-325 MG TABLET PO PRN ×2 (09:08)
[2016-10-10] MEDS ORDERED: PROMETHAZINE HCL INJ 25 MG/1 ML VIAL IV PRN ×2 (09:08)
[2016-10-10] MEDS ORDERED: FENTANYL CITRATE INJ/PF 100 MCG/2 ML AMPUL IV PRN ×3 (09:08)
[2016-10-10] MEDS ORDERED: MEPERIDINE HCL/PF INJ 25 MG/1 ML DISP.SYRIN IV PRN (09:08)
[2016-10-10] MEDS ORDERED: ONDANSETRON HCL INJ/PF 4 MG/2 ML SDV IV PRN (09:08)
[2016-10-10] MEDS ORDERED: IBUPROFEN 800 MG TABLET PO PRN (10:01)
--- NOTE | 2016-10-10 10:13 | OPERATIVE REPORT E ---
Operative Report NAME: JESSICA FORTE : 1980 AGE: 36Y DATE OF SURGERY: 10/10/2016 ROOM: PREOPERATIVE DIAGNOSIS: Undesired fertility. POSTOPERATIVE DIAGNOSIS: Undesired fertility. PROCEDURE: Laparoscopic bilateral salpingectomy. SURGEON: HEATHER CASTRO M.D. ANESTHESIA: Dr. Gambino with [facility]. FINDINGS: Normal uterus, tubes and ovaries. COMPLICATIONS: None. ESTIMATED BLOOD LOSS: 10 mL. SPECIMENS REMOVED: Bilateral fallopian tubes. PROCEDURE IN DETAIL: The patient was taken to the operating room and prepared and draped in a normal sterile fashion in a dorsal lithotomy position. Under sterile conditions, an in-and-out cath was performed with approximately 350 mL of clear urine obtained. A sterile speculum was then placed into the vagina and the cervix was identified and prepped with Betadine. The anterior lip of the cervix was grasped a single tooth tenaculum. A Hulka clamp was placed through the cervix for uterine manipulation without difficulty. The tenaculum was removed and so was the sterile speculum and gloves were changed, and attention was then turned to the upper portion of the case. An umbilical skin incision was made to accommodate a 5 mm port. A Veress needle was placed; could not confirm placement into the peritoneal cavity. Therefore, an Optiview was attempted for entry into peritoneal cavity, and still could not confirm. So, a cut-down method was utilized and the peritoneum was entered this way without any further difficulty. The trocar was placed and the abdomen was insufflated with approximately 2 L of CO2 gas, to a pressure of 15 mmHg. The patient was then placed into steep Trendelenburg while we visualized the anatomy. Under direct visualization, two 5 mm ports were placed 10 cm on either side of the umbilicus for the instruments. LigaSure was then introduced as well as an atraumatic grasper. The left fallopian tube was grasped with a grasper by my cement tester assistant surgical garment assembler and the mesosalpinx was divided by myself using a LigaSure following along the fallopian tube until we reached the cornua of the uterus and the fallopian tube was then completely transected using a LigaSure. This was repeated on the right fallopian tube without difficulty and both the specimens were removed through the assistance port without difficulty. The trocars were then removed under direct visualization. The abdomen was deflated of CO2 gas. The skin was closed at all 3 sites using 4-0 Vicryl. Patient tolerated procedure well. Sponge, lap and needle counts were correct x2, and the Hulka clamp was removed at the end of the procedure. DICTATING PHYSICIAN: HEATHER CASTRO M.D. [id number] PHY#: [id number] ID: [id number] JOB#: [id number] ACCT: [id number] cc:HEATHER CASTRO M.D. >
[2016-10-10 11:38] VITALS: BP 124/70
[2016-10-10] MEDS ORDERED: LIDOCAINE 2% INJ-PF (20 MG/ML) 10 ML AMPUL ONE (12:23)
[2016-10-10] MEDS ORDERED: DEXAMETHASONE SOD PHOSPHATE INJ 4 MG/1 ML VIAL ONE (12:23)
[2016-10-10] MEDS ORDERED: VECURONIUM BROMIDE INJ 10 MG VIAL IV ONE (12:23)
[2016-10-10] MEDS ORDERED: NEOSTIGMINE METHYLSULFATE 10 MG/10 ML VIAL ONE (12:23)
[2016-10-10] MEDS ORDERED: ONDANSETRON HCL INJ/PF 4 MG/2 ML SDV ONE (12:23)
[2016-10-10] MEDS ORDERED: SUCCINYLCHOLINE CHLORIDE INJ 200 MG/10 ML VIAL ONE (12:23)
[2016-10-10] MEDS ORDERED: METOCLOPRAMIDE HCL INJ/PF 10 MG/2 ML SDV ONE (12:23)
[2016-10-10] MEDS ORDERED: GLYCOPYRROLATE INJ 0.4 MG/2 ML VIAL ONE (12:23)
== END 2016-10-10 11:39 | disposition home or self-care (01) ==
LOC: OROUT 06:30
PROVIDERS: ATTEND Obstetrics & Gynecology
PROC: 0UT74ZZ Resection of Bilateral Fallopian Tubes, Percutaneous Endoscopic Approach (ICD-10-PCS; principal; 2016-10-10 08:30)
DX: Z30.2 Encounter for sterilization (principal); N83.8 Other noninflammatory disorders of ovary, fallopian tube and broad ligament; E06.3 Autoimmune thyroiditis; E88.81 Metabolic syndrome and other insulin resistance; Z88.2 Allergy status to sulfonamides; Z79.84 Long term (current) use of oral hypoglycemic drugs; Z79.899 Other long term (current) drug therapy
CPT/HCPCS: 36415; 85027; 81005; 81025; 88302 ×2; 58661; J2250; J1100; J3010; J3490 ×2; J2765; J0330; J2405; J2704; J0131; 840

== ENCOUNTER 2018-07-19 15:51 | Emergency (ER) | payer BC, MEDICAID ==
[2018-07-19] MEDS ORDERED: LIDOCAINE 2% VISCOUS SOLN 20 ML UDCUP PO ONE (16:01)
[2018-07-19] MEDS ORDERED: METOCLOPRAMIDE HCL ORAL SOLN 10 MG/10 ML UDCUP PO ONE (16:01)
[2018-07-19] MEDS ORDERED: ONDANSETRON 4 MG TAB.RAPDIS PO ONE (16:01)
[2018-07-19] MEDS ORDERED: MAG HYDROX/AL HYDROX/SIMETH SUSP 30 ML UDCUP PO ONE (16:01)
[2018-07-19 16:43] LABS: ABSOLUTE BASOPHILS # (AUTO) 0.1 10^3/uL (0.0-0.2); ABSOLUTE LYMPHOCYTES (AUTO) 1.1 10^3/uL (0.5-4.7); ABSOLUTE MONOCYTES (AUTO) 0.6 10^3/uL (0.1-1.4); ABSOLUTE NEUT (AUTO) 7.8 10^3/uL (1.7-8.2); BASOPHILS % (AUTO) 0.6 % (0-2); EOSINOPHILS % (AUTO) 0.3 % (0-6); HEMOGLOBIN 12.9 g/dL (12.0-15.5); LYMPHOCYTES % (AUTO) 11.2 % (13-45); MEAN CORPUSCULAR HEMOGLOBIN 26.6 pg (27.0-33.4); MEAN CORPUSCULAR HGB CONC 33.2 g/dL (32.0-36.0); MEAN CORPUSCULAR VOLUME 80 fl (80-97); MONOCYTES % (AUTO) 6.4 % (3-13); PLATELET COUNT 318 10^3/uL (150-450); RED BLOOD COUNT 4.87 10^6/uL (3.72-5.28); RED CELL DISTRIBUTION WIDTH 14.6 % (11.5-14.0); SEGMENTED NEUTROPHILS % (AUTO) 81.5 % (42-78); TOTAL CELLS COUNTED % (AUTO) 100 %; WHITE BLOOD COUNT 9.5 10^3/uL (4.0-10.5)
--- NOTE | 2018-07-19 16:49 | RADIOLOGY REPORT (SQ) ---
EXAM DESCRIPTION: CHEST SINGLE VIEW COMPLETED DATE/TIME: 07/19/2018 4:40 pm REASON FOR STUDY: Hiatal hernia COMPARISON: 11/26/2010. EXAM PARAMETERS: NUMBER OF VIEWS: One view. TECHNIQUE: Single frontal radiographic view of the chest acquired. RADIATION DOSE: NA LIMITATIONS: None. FINDINGS: LUNGS AND PLEURA: No opacities, masses or pneumothorax. No pleural effusion. MEDIASTINUM AND HILAR STRUCTURES: No masses. Contour normal. HEART AND VASCULAR STRUCTURES: Heart normal in size. Normal vasculature. BONES: No acute findings. HARDWARE: None in the chest. OTHER: No other significant finding. IMPRESSION: NO ACUTE RADIOGRAPHIC FINDING IN THE CHEST. TECHNICAL DOCUMENTATION: JOB ID: [id number] [employer]- All Rights Reserved Reading location - IP/workstation name: [email or web address]
[2018-07-19 17:01] LABS: ALANINE AMINOTRANSFERASE 113 U/L (9-52); ALBUMIN 4.4 g/dL (3.5-5.0); ALKALINE PHOSPHATASE 156 U/L (38-126); ANION GAP 8 (5-19); ASPARTATE AMINO TRANSFERASE 195 U/L (14-36); BILIRUBIN,DIRECT 0.6 mg/dL (0.0-0.4); BILIRUBIN,TOTAL 0.8 mg/dL (0.2-1.3); BLOOD UREA NITROGEN 10 mg/dL (7-20); CALCIUM 8.9 mg/dL (8.4-10.2); CARBON DIOXIDE 27 mmol/L (22-30); CHLORIDE 106 mmol/L (98-107); GLUCOSE 91 mg/dL (75-110); POTASSIUM 3.9 mmol/L (3.6-5.0); SODIUM 140.5 mmol/L (137-145)
[2018-07-19] MEDS ORDERED: HYDROCODONE/ACETAMINOPHEN 5-325 MG TABLET PO ONE (17:29)
--- NOTE | 2018-07-19 18:57 | ER Document Report ---
ED GI/ - General Chief Complaint: Abdominal Pain Stated Complaint: ABDOMINAL PAIN Time Seen by Provider: 07/19/18 15:57 Mode of Arrival: Ambulatory Information source: Patient Notes: Chief complaint: abdominal pain: History of complain:( obtained from----patient) 38 years old female presents today with sharp epigastric pain since this afternoon. Nonradiating not associated with any nausea vomiting diarrhea or dysuria frequency. Onset: Gradual Duration: Since this afternoon Severity: Moderate to severe Quality: Sharp Context: Unknown Exacerbating factor and relieving factors: None REVIEW OF SYSTEMS: CONSTITUTIONAL : Denies fever, chills, or sweats. Denies recent illness. EENT: Denies eye, ear, throat, or mouth pain or symptoms. Denies nasal or sinus congestion or discharge. Denies throat, tongue, or mouth swelling or difficulty swallowing. CARDIOVASCULAR: Denies chest pain. Denies palpitations or racing or irregular heart beat. Denies ankle edema. RESPIRATORY: Denies cough, cold, or chest congestion. Denies shortness of breath, difficulty breathing, or wheezing. GASTROINTESTINAL: Denies distention. Denies nausea, vomiting, or diarrhea. Denies blood in vomitus, stools, or per rectum. Denies black, tarry stools. Denies constipation. GENITOURINARY: Denies difficulty urinating, painful urination, burning, frequency, blood in urine, or discharge. FEMALE GENITOURINARY: Denies vaginal bleeding, heavy or abnormal periods, irregular periods. Denies vaginal discharge or odor. MUSCULOSKELETAL: Denies back or neck pain or stiffness. Denies joint pain or swelling. SKIN: Denies rash, lesions or sores. HEMATOLOGIC : Denies easy bruising or bleeding. LYMPHATIC: Denies swollen, enlarged glands. NEUROLOGICAL: Denies confusion or altered mental status. Denies passing out or loss of consciousness. Denies dizziness or lightheadedness. Denies headache. Denies weakness or paralysis or loss of use of either side. Denies problems with gait or speech. Denies sensory loss, numbness, or tingling. Denies seizures. PSYCHIATRIC: Denies anxiety or stress. Denies depression, suicidal ideation, or homicidal ideation. ALL OTHER SYSTEMS REVIEWED AND NEGATIVE. PHYSICAL EXAMINATION: GENERAL: Well-appearing, well-nourished and in no acute distress. HEAD: Atraumatic, normocephalic. EYES: Pupils equal round and reactive to light, extraocular movements intact, conjunctiva are normal. ENT: Nares patent, oropharynx clear without exudates. Moist mucous membranes. NECK: Normal range of motion, supple without lymphadenopathy LUNGS: Breath sounds clear to auscultation bilaterally and equal. No wheezes rales or rhonchi. HEART: Regular rate and rhythm without murmurs ABDOMEN: Soft, epigastric tenderness on palpation, nondistended abdomen. No guarding, no rebound. No masses appreciated. Female : deferred Musculoskeletal: Normal range of motion, no pitting or edema. No cyanosis. NEUROLOGICAL: Cranial nerves grossly intact. Normal speech, normal gait. Normal sensory, motor exams PSYCH: Normal mood, normal affect. SKIN: Warm, Dry, normal turgor, no rashes or lesions noted. Dictation was performed using [employer] voice recognition software TRAVEL OUTSIDE OF THE [place] IN LAST 30 DAYS: No - HPI Notes: 07/19/18 18:55 Dictated - Related Data Allergies/Adverse Reactions: Sulfa (Sulfonamide Antibiotics) Allergy (Intermediate, Verified 07/19/18 15:53) Hives Past Medical History - Social History Smoking Status: Never Smoker Chew tobacco use (# tins/day): No Frequency of alcohol use: None Drug Abuse: None Lives with: Family Family History: Reviewed & Not Pertinent Patient has suicidal ideation: No Patient has homicidal ideation: No - Past Medical History Cardiac Medical History: Denies: Hx Coronary Artery Disease, Hx Heart Attack, Hx Hypertension Pulmonary Medical History: Denies: Hx Asthma, Hx Bronchitis, Hx COPD, Hx Pneumonia Neurological Medical History: Denies: Hx Cerebrovascular Accident, Hx Seizures Renal/ Medical History: Denies: Hx Peritoneal Dialysis GI Medical History: Reports: Hx Gastroesophageal Reflux Disease Musculoskeletal Medical History: Denies Hx Arthritis Past Surgical History: Reports: Hx Kidney (Renal Surgery) - kidney stones - Immunizations Hx Diphtheria, Pertussis, Tetanus Vaccination: Yes Review of Systems - Review of Systems Notes: Dictated Physical Exam - Vital signs Vitals: Temp Pulse Resp BP Pulse Ox 97.4 F 87 20 148/88 H 100 07/19/18 15:55 07/19/18 15:55 07/19/18 15:55 07/19/18 15:55 07/19/18 15:55 - Notes Notes: Dictated Course - Re-evaluation Re-evalutation: 07/19/18 18:55 Feeling much better - Vital Signs Vital signs: Temp Pulse Resp BP Pulse Ox 97.4 F 87 20 148/88 H 100 07/19/18 15:55 07/19/18 15:55 07/19/18 15:55 07/19/18 15:55 07/19/18 15:55 - Laboratory Result Diagrams: 07/19/18 16:23 07/19/18 16:23 Laboratory results interpreted by me: 07/19/18 07/19/18 16:23 16:23 MCH 26.6 L RDW 14.6 H Seg Neutrophils % 81.5 H Lymphocytes % 11.2 L Direct Bilirubin 0.6 H AST 195 H ALT 113 H Alkaline Phosphatase 156 H Discharge - Discharge Clinical Impression: Acute gastritis Qualifiers: Gastritis type: unspecified gastritis Gastritis bleeding: without bleeding Qualified Code(s): K29.00 - Acute gastritis without bleeding Condition: Fair Disposition: HOME, SELF-CARE Instructions: Abdominal Pain ([facility]), Gastritis ([facility]) Prescriptions: Hydrocodone Bit/Acetaminophen [Hydrocodon-Acetaminophen 5-325] 1 each PO TID #10 tablet Sucralfate [Carafate 1 gm Tablet] 1 gm PO ACHS #120 tablet
[2018-07-19 19:16] VITALS: BP 128/98
== END 2018-07-19 19:16 | disposition home or self-care (01) ==
LOC: ER 15:51
DX: K29.00 Acute gastritis without bleeding (principal); R10.13 Epigastric pain; Z88.2 Allergy status to sulfonamides; Z87.442 Personal history of urinary calculi
CPT/HCPCS: 99284; 36415; 85025; 80053; 71045; S0119; J3490

== ENCOUNTER 2019-06-20 10:01 | Emergency (ER) | payer OTHER ==
[2019-06-20] MEDS ORDERED: DIPHENHYDRAMINE HCL 50 MG/ML VIAL IV ONE (10:19)
[2019-06-20] MEDS ORDERED: PROCHLORPERAZINE EDISYLATE INJ 10 MG/2 ML VIAL IV ONE (10:19)
[2019-06-20] MEDS ORDERED: KETOROLAC TROMETHAMINE INJ/PF 30 MG/1 ML SDV IV ONE (10:19)
--- NOTE | 2019-06-20 10:22 | ER Document Report ---
ED Medical Screen (RME) - General Chief Complaint: Headache Stated Complaint: HEADACHE/NECK PAIN Time Seen by Provider: 06/20/19 10:15 TRAVEL OUTSIDE OF THE [place] IN LAST 30 DAYS: No - HPI Notes: 06/20/19 10:19 Patient is a 39-year-old female no significant past medical history presents complaining of bilateral neck pain, soreness, tightness, and a headache that is been constant for 1.5 weeks. Patient states that she may have slept wrong and felt a "kink" in her neck. Since then, the pain does radiate up into her head bilaterally. Patient states that movement does make her pain worse. No recent illness. This is not the worst headache of her life and did not start as a thunderclap. Denies any fever, head injury, changes in vision/speech/mentation/hearing, URI, sore throat, chest pain, palpitations, syncope, cough, shortness of breath, wheeze, dyspnea, abdominal pain, nausea/vomiting/diarrhea, urinary retention, dysuria, hematuria, loss of control of bowel or bladder, numbness/tingling, saddle anesthesia, muscle paralysis/weakness, or rash. I have treated and performed a rapid initial assessment of this patient. A comprehensive ED assessment and evaluation of the patient, analysis of test results and completion of medical decision making process will be conducted by additional ED providers. PHYSICAL EXAMINATION: GENERAL: Well-appearing, well-nourished and in no acute distress. A&Ox4. Answers questions appropriately. HEAD: Atraumatic, normocephalic. Non-tender. EYES: Pupils equal round and reactive to light, extraocular movements intact, sclera anicteric, conjunctiva are normal. No nystagmus. ENT: Nares patent and without discharge. oropharynx clear without exudates. No tonsilar hypertrophy or erythema. Moist mucous membranes. NECK: Normal range of motion, supple without lymphadenopathy. No rigidity/meningismus. No midline tenderness. + reproducible tenderness b/l C- paraspinal muscles. + tenderness at occiput b/l near occipital nerve bundles. Musculoskeletal: Ext b/l: FROM to passive/active. Strength 5+/5. No deficits noted. No bony tenderness of extremities. Extremities: No cyanosis, clubbing, or edema b/l. Peripheral pulses 2+. C apillary refill less than 2 seconds. NEUROLOGICAL: NIH 0. GCS 15. Cranial nerves grossly intact. Normal speech, normal gait. Normal sensory, motor exams. PSYCH: Normal mood, normal affect. SKIN: Warm, Dry, normal turgor, no rashes or lesions noted. - Related Data Allergies/Adverse Reactions: Sulfa (Sulfonamide Antibiotics) Allergy (Intermediate, Verified 06/20/19 10:11) Hives Past Medical History - Social History Chew tobacco use (# tins/day): No Frequency of alcohol use: Rare Drug Abuse: None - Past Medical History Cardiac Medical History: Denies: Hx Coronary Artery Disease, Hx Heart Attack, Hx Hypertension Pulmonary Medical History: Denies: Hx Asthma, Hx Bronchitis, Hx COPD, Hx Pneumonia Neurological Medical History: Denies: Hx Cerebrovascular Accident, Hx Seizures Renal/ Medical History: Denies: Hx Peritoneal Dialysis GI Medical History: Reports: Hx Gastroesophageal Reflux Disease Musculoskeltal Medical History: Denies Hx Arthritis Past Surgical History: Reports: Hx Kidney (Renal Surgery) - kidney stones - Immunizations Hx Diphtheria, Pertussis, Tetanus Vaccination: Yes Physical Exam - Vital signs Vitals: Temp Pulse Resp BP Pulse Ox 97.6 F 82 16 156/99 H 100 06/20/19 10:05 06/20/19 10:05 06/20/19 10:05 06/20/19 10:05 06/20/19 10:05 Course - Vital Signs Vital signs: Temp Pulse Resp BP Pulse Ox 97.6 F 82 16 156/99 H 100 06/20/19 10:12 06/20/19 10:05 06/20/19 10:12 06/20/19 10:05 06/20/19 10:12
[2019-06-20] MEDS ORDERED: NORMAL SALINE 1000 ML 1,000 ML IV ONE (12:12)
--- NOTE | 2019-06-20 12:21 | ER Document Report ---
ED Headache - General Chief Complaint: Headache Stated Complaint: HEADACHE/NECK PAIN Time Seen by Provider: 06/20/19 10:15 Primary Care Provider: PUJA PRESTON MD [Primary Care Provider] - Follow up in 3-5 days Mode of Arrival: Ambulatory Information source: Patient Notes: 39-year-old female presented to ED for complaint of migraine that started about 1-1/2 weeks ago. She states she did not have any history of any injuries she has had a migraine in the past usually she can take [id number]-[id number] medications. She states she was have a bilateral neck soreness and tightness. She states she does not know if she slept wrong and if that is why all of the pain. She states mostly she just wants something for the pain. She states it is actually improved tremendously from when she was seen upfront. She states now her pain is about a 1 or 2. She states she would like something to take for a migraine later. She has no vertebral tenderness she has no fevers. She has no neurological deficits. He has no numbness or tingling or any paralysis or weakness. She has had migraines in the past. She states this was not a sudden onset incident and it is not the worst headache she is ever had. TRAVEL OUTSIDE OF THE [place] IN LAST 30 DAYS: No COUNTRY TRAVELED TO/FROM: [facility] Patient complains to provider of: "Migraine" Patient reports: Hx chronic headaches Onset: Other - 1-1/2 weeks Onset was: Gradual Timing: Better Quality of pain: Achy Severity: Mild Pain Level: 1 Associated symptoms: Neck pain - States she was having neck pain which is much improved. denies: Confusion, Dizzy, Double/blurred vision, Fever, Motor/sensory loss to arm, Nausea/vomiting, Photophobia, Speech problems, Tingling/numb sensation Similar symptoms previously: Yes Recently seen / treated by doctor: No - Related Data Allergies/Adverse Reactions: Sulfa (Sulfonamide Antibiotics) Allergy (Intermediate, Verified 06/20/19 10:11) Hives Past Medical History - General Information source: Patient - Social History Smoking Status: Former Smoker Chew tobacco use (# tins/day): No Frequency of alcohol use: Rare Drug Abuse: None Lives with: Family Family History: Reviewed & Not Pertinent Patient has suicidal ideation: No Patient has homicidal ideation: No - Past Medical History Cardiac Medical History: Reports: None Pulmonary Medical History: Reports: None EENT Medical History: Reports: None Neurological Medical History: Reports: None Endocrine Medical History: Reports: None Renal/ Medical History: Reports: Hx Ovarian Cysts Malignancy Medical History: Reports: None GI Medical History: Reports: Hx Gastroesophageal Reflux Disease Musculoskeletal Medical History: Reports None Skin Medical History: Reports None Psychiatric Medical History: Reports: None Traumatic Medical History: Reports: None Past Surgical History: Reports: Hx Gynecologic Surgery - Tubes and ovaries removed, Hx Kidney (Renal Surgery) - kidney stones - Immunizations Hx Diphtheria, Pertussis, Tetanus Vaccination: Yes Review of Systems - Review of Systems Constitutional: No symptoms reported EENT: No symptoms reported Cardiovascular: No symptoms reported Respiratory: No symptoms reported Gastrointestinal: No symptoms reported Genitourinary: No symptoms reported Female Genitourinary: No symptoms reported Musculoskeletal: Muscle pain, Muscle stiffness, Neck pain Skin: No symptoms reported Hematologic/Lymphatic: No symptoms reported Neurological/Psychological: Headaches. denies: Confusion, Dementia, Depression, Anxiety, Hallucinations, Sensory change, Weakness, Gait changes, Loss of power, Paralysis, Lost consciousness, Speech impairment, Numbness, Tingling Physical Exam - Vital signs Vitals: Temp Pulse Resp BP Pulse Ox 97.6 F 82 16 156/99 H 100 06/20/19 10:05 06/20/19 10:05 06/20/19 10:05 06/20/19 10:05 06/20/19 10:05 Interpretation: Normal - General General appearance: Appears well, Alert - HEENT Head: Normocephalic, Atraumatic Eyes: Normal Pupils: PERRL Nerve palsy: No Visual young normal: Yes Ears: Normal External canal: Normal Tympanic membrane: Normal Sinus: Normal Nasal: Normal Mouth/Lips: Normal Mucous membranes: Normal Pharynx: Normal Neck: Normal - Respiratory Respiratory status: No respiratory distress Chest status: Nontender Breath sounds: Normal Chest palpation: Normal - Cardiovascular Rhythm: Regular Heart sounds: Normal auscultation Murmur: No - Abdominal Inspection: Normal Distension: No distension Bowel sounds: Normal Tenderness: Nontender Organomegaly: No organomegaly - Back Back: Normal, Nontender - Extremities General upper extremity: Normal inspection, Nontender, Normal color, Normal ROM, Normal temperature General lower extremity: Normal inspection, Nontender, Normal color, Normal ROM, Normal temperature, Normal weight bearing. No: Khadra's sign - Neurological Neuro grossly intact: Yes Cognition: Normal Orientation: AAOx4 [place] Coma Scale Eye Opening: Spontaneous [place] Coma Scale Verbal: Oriented [place] Coma Scale Motor: Obeys Commands [place] Coma Scale Total: 15 Speech: Normal Motor strength normal: LUE, RUE, LLE, RLE Sensory: Normal - Psychological Associated symptoms: Normal affect, Normal mood - Skin Skin Temperature: Warm Skin Moisture: Dry Skin Color: Normal Course - Re-evaluation Re-evalutation: 06/20/19 12:52 After performing a Medical Screening Examination, I estimate there is LOW risk for ACUTE GLAUCOMA, TEMPORAL ARTERITIS, MENINGITIS, INCRANIAL HEMORRHAGE, or ISCHEMIC STROKE thus I consider the discharge disposition reasonable. I have reevaluated this patient multiple times and no significant life threatening changes are noted. The patient and I have discussed the diagnosis and risks, and we agree with discharging home with close follow-up with the understanding that symptoms and presentations can change. We also discussed returning to the Emergency Department immediately if new or worsening symptoms occur. We have discussed the symptoms which are most concerning (e.g., changing or worsening symptoms, new numbness or weakness, vomiting, fever) that necessitate immediate return. - Vital Signs Vital signs: Temp Pulse Resp BP Pulse Ox 98.0 F 93 16 139/87 H 100 06/20/19 12:26 06/20/19 12:26 06/20/19 12:26 06/20/19 12:26 06/20/19 12:26 Discharge - Discharge Clinical Impression: Headache Qualifiers: Headache type: unspecified Headache chronicity pattern: unspecified pattern Intractability: not intractable Qualified Code(s): R51 - Headache Condition: Stable Disposition: HOME, SELF-CARE Additional Instructions: HEADACHE: The physician does not feel that the headache you are experiencing has a serious underlying cause. Most headaches are due to emotional stress, with resultant muscle tension (tension headache). Occasionally, headaches are secondary to changes in the blood vessels of the scalp (vascular headache and migraine headache). Sometimes, a headache is the first symptom of another d eveloping illness, such as a viral infection. You have no evidence of stroke, bleeding, meningitis, or other serious cause of your headache. The treatment of headaches varies with the severity and cause of the pain. Not all headaches need pain shots. In fact, there is evidence that using narcotics for headaches may make them worse in the long run. The physician will determine the therapy that's in your best interest. If you develop a fever, if the headache is different from any you've previously experienced, or if the headache progressively worsens, then call your physician at once or go to the emergency room. USE OF DIPHENHYDRAMINE: Diphenhydramine (Benadryl) is an antihistamine and has been recommended to help treat your headache and to prevent side effects of other medications used to treat headaches. The medication can be repeated four times daily. Age Elixir (12.5 mg/tsp) 25 mg pill adult 1-2 tabs Antihistamines may cause drowsiness, especially with the first dose. Do not operate machinery or drive while under the effects of the medication. Do not combine the medication with alcohol, or with any other medication without talking to your doctor. ANTINAUSEA MEDICATION: You have been given a medication to suppress nausea and vomiting. This type of medication can be given as a shot, pill, or suppository. It will usually last for many hours. Pills and shots usually last six to eight hours, suppositories last about 12 hours. For the typical illness, only one or two doses of the medication may be necessary. Mild lightheadedness may occur. This type of medicine can cause drowsiness. Do not drive or operate dangerous machinery while under its influence. Do not mix with alcohol. See your doctor at once if you have muscle spasms or tightness, or uncontrollable motions (particularly of the neck, mouth, or jaw). Persistent vomiting or severe lightheadedness should also be evaluated by the physician. INTRAVENOUS COMPAZINE FOR HEADACHE: You have received therapy for headaches, using intravenous Compazine. This treatment is dramatically successful in relieving the headache in about 50 percent of cases. When it works, it provides a rapid method of eliminating the headache without resorting to narcotics (and the problems associated with them). Most patients still feel fully alert after the Compazine, but others may be slightly drowsy. It's best not to drive or work with machinery for six to eight hours. Do not take alcohol or other medication unless you discuss it with the doctor. If you develop tightness and spasms in your muscles, especially the neck and tongue, you should return. This is a side effect which can be treated. TORADOL INJECTION: You have been given an injection of ketorolac tromethamine (Toradol). This is an excellent, safe drug for pain control. It also has potent antiinflammatory action. You should have significant pain relief within about one hour. Toradol is not addicting and is non-sedating. It does not interfere with driving or work. Call or return if you develop itching, hives, shortness of breath, or rash. FOLLOW-UP CARE: If you have been referred to a physician for follow-up care, call the physicians office for an appointment as you were instructed or within the next two days. If you experience worsening or a significant change in your symptoms, notify the physician immediately or return to the Emergency Department at any time for re-evaluation. Prescriptions: Butalb/Acetaminophen/Caffeine [Fioricet (50-325-40 mg) Tablet] 1 tab PO Q6HP PRN #30 tab PRN Reason: Forms: Elevated Blood Pressure Referrals: PUJA PRESTON MD [Primary Care Provider] - Follow up in 3-5 days
[2019-06-20 12:27] VITALS: BP 139/87
== END 2019-06-20 13:02 | disposition home or self-care (01) ==
LOC: ER 10:01
DX: R51 Headache (principal); M54.2 Cervicalgia; M79.10 Myalgia, unspecified site; Z86.69 Personal history of other diseases of the nervous system and sense organs; Z87.891 Personal history of nicotine dependence; Z88.2 Allergy status to sulfonamides
CPT/HCPCS: J1200; J1885; J0780; J7030; 96361; 96374; 96375; 99283